=== PATIENT | female | born 1945 | race Caucasian/White ===

== ENCOUNTER → 2017-10-08 | Outpatient (CLI) | payer MEDICARE, MEDICAID ==
[~2017-10-08] MED LIST: ACET325T14 PO; ALBU18HF INH; ALPR0.25 PO; ALPR0.254 PO; ASPI-496 PO; BISA10SU54 PR; CARI250T PO; CARI350T PO; CLOB50FO8 TP; CLON2TAB PO; DILT60TA27 PO; DIVA250T4 PO; ENOX40SY4 SQ; HYDR-882 PO; MEGE40TA PO; MIRT30TA PO; MIRT30TA3 PO; MOME13HF INH; OMEP-110 PO; OMEP20CA9 PO; OMEP20TA62 PO; ONDA4TAB12 PO; OXYB5TAB7 PO; OXYC-306 PO; OXYC1TAB8 PO; SALM50DI IH; SIMV10TA3 PO; TRAM50TA2 PO; pro air IH; qvar IH
== END | disposition home or self-care (01) ==
LOC: CVU 13:39
PROVIDERS: ATTEND Internal Medicine Cardiovascular Disease
DX: I10 Essential (primary) hypertension (principal); I51.7 Cardiomegaly; J44.9 Chronic obstructive pulmonary disease, unspecified; K21.9 Gastro-esophageal reflux disease without esophagitis
CPT/HCPCS: 93306

== ENCOUNTER 2018-04-11 16:16 | Inpatient (IN) | payer MEDICARE, MEDICAID ==
[~2018-04-11] VITALS: Ht 162.6 cm; Wt 93.4 kg
[~2018-04-11 16:16] MED LIST changes: +HYDR-3653 PO; -HYDR-882 PO
--- NOTE | 2018-04-11 16:37 | NUR ---
EKG ATTEPTED IN TRIAGE, BUT WAS UNABLE TO GET A SUFFICIENT READING DUE TO PT'S TREMOR AND SITTING POSITION.
[2018-04-11 16:57] LABS: BASOPHILS # (AUTO) 0.05 x10^3/uL (0-0.1); BASOPHILS % (AUTO) 0 % (0-1); EOSINOPHILS # (AUTO) 0.05 x10^3/uL (0-0.4); EOSINOPHILS % (AUTO) 0 % (1-7); LYMPHOCYTES # (AUTO) 2.71 x10^3/uL (1-3.4); LYMPHOCYTES % (AUTO) 20 % (22-44); MD NO; MEAN CORPUSCULAR HEMOGLOBIN 30.6 pg (27.0-34.8); MEAN CORPUSCULAR VOLUME 92.7 fL (80-100); MEAN PLATELET VOLUME 8.5 fL (7.4-10.4); MONOCYTES % (AUTO) 7 % (2-9); NEUTROPHILS # (AUTO) 10.16 x10^3/uL (1.8-6.8); NEUTROPHILS % (AUTO) 73 % (42-75); PLATELET COUNT 201 x10^3/uL (130-400); RED CELL DISTRIBUTION WIDTH 14.9 % (9.6-15.2)
[2018-04-11 17:09] LABS: ALANINE AMINOTRANSFERASE 11 U/L (12-78); ALBUMIN 3.1 g/dL (3.4-5.0); ANION GAP 5 mmol/L (5-15); CALCIUM 9.8 mg/dL (8.5-10.1); CHLORIDE 98 mmol/L (98-107); CREATININE 0.74 mg/dL (0.55-1.02)
--- NOTE | 2018-04-11 17:12 | NUR ---
PT C/O INCREASING SOB. STATES SHE WAS TREATED FOR SINUSITIS WHICH IMPROVED BUT OVER PAST FEW DAY INCREASING SOB, RUNNY NOSE, CONGESTION. DR MEEK AT BEDSIDE, POC DISSCUSSED, ORDERS REC'D.
[2018-04-11 17:14] LABS: ALKALINE PHOSPHATASE 81 U/L (45-117); BILIRUBIN,TOTAL 0.3 mg/dL (0.2-1.0); TOTAL PROTEIN 8.3 g/dL (6.4-8.2); TROPONIN I < 0.015 ng/mL (0.000-0.045)
[2018-04-11] MEDS ORDERED: SODIUM CHLORIDE 0.9% 1,000ML IVBOLUS ONE (17:30)
[2018-04-11] MEDS ORDERED: SODIUM CHLORIDE FLUSH 10ML SYR IVF ONE (17:30)
[2018-04-11 18:12] LABS: TROPONIN I < 0.015 ng/mL (0.000-0.045)
--- NOTE | 2018-04-11 18:19 | NUR ---
ASSISTED PT TO BR WITH PLATFORM WALKER. RA SPO2 DROPPED 86% AFTER AMBULATION. O2 REAPPLIED AT 2L. TRAVELING PASSENGER AGENT TO TAKE PT FOR CTA.
[2018-04-11 18:21] LABS: RAPID INFLUENZA A Negative (Negative); RAPID INFLUENZA B Negative (Negative)
[2018-04-11] MEDS ORDERED: OMNIPAQUE 350 MG/ML, 75ML BOTTLE ONE (19:09)
--- NOTE | 2018-04-11 20:09 | NUR ---
DR MEEK AT BS. DISCUSSED RADIOLOGY RESULTS WITH PT & AND POSSIBILITY OF CHEST TUBE PLACEMENT.
[2018-04-11] MEDS ORDERED: DOXE50CA PO (20:23)
[2018-04-11] MEDS ORDERED: DIVA500T2 PO (20:23)
[2018-04-11] MEDS ORDERED: LIDOCAINE-MPF 1%, 5ML ONE (21:13)
[2018-04-11] MEDS ORDERED: FLUMAZENIL 0.1 MG/1 ML, 5ML ONE (21:15)
[2018-04-11] MEDS ORDERED: NALOXONE 1 MG/ML, 2ML ONE (21:15)
[2018-04-11] MEDS ORDERED: MIDAZOLAM 1 MG/ML, 5ML ONE (21:15)
[2018-04-11] MEDS ORDERED: FENTANYL PF 100 MCG/2ML ONE ×2 (21:15)
[2018-04-11 21:44] LABS: MICROSCOPIC NOT IND
[2018-04-11 21:47] LABS: CULTURE INDICATED? NO
[2018-04-11] MEDS: DILTIAZEM 90 MG TABLET PO SCH (22:00)
[2018-04-11] MEDS ORDERED: LIDODERM 5% PATCH TD PRN (22:00)
[2018-04-11] MEDS ORDERED: ONDANSETRON ODT 4 MG PO PRN (22:00)
[2018-04-11] MEDS ORDERED: ALBUTEROL SULFATE 2.5 MG/3 ML HHN PRN (22:00)
[2018-04-11] MEDS: SIMVASTATIN 10 MG TABLET PO SCH (22:00)
[2018-04-11] MEDS ORDERED: ACETAMINOPHEN 325 MG TABLET PO PRN (22:00)
[2018-04-11] MEDS: DOXEPIN 25 MG CAPSULE PO SCH (22:00)
[2018-04-11] MEDS: DIVALPROEX 500 MG TABLET.DR PO SCH (22:00)
[2018-04-11] MEDS ORDERED: hydrALAzine 20 MG/ML, 1ML IVPush PRN (22:00)
[2018-04-11 22:37] VITALS: BP 116/77
[2018-04-11] MEDS: OXYcodone/APAP 7.5/325MG TABLET PO PRN (23:46)
[2018-04-12 02:00] VITALS: BP 106/68
[2018-04-12] MEDS: DOCUSATE 100 MG CAPSULE PO PRN (02:06)
[2018-04-12] MEDS: OXYcodone/APAP 7.5/325MG TABLET PO PRN ×4 (06:31→14:46)
[2018-04-12] MEDS ORDERED: MULT1POW2 PO (07:13)
[2018-04-12] MEDS ORDERED: ASCO500C10 PO (07:14)
[2018-04-12 07:38] VITALS: BP 122/55
[2018-04-12] MEDS: DIVALPROEX 500 MG TABLET.DR PO SCH ×2 (09:21→20:32)
[2018-04-12] MEDS: ASPIRIN 81 MG TABLET CHEW PO SCH (09:22)
[2018-04-12] MEDS: OMEPRAZOLE 20 MG CAPSULE.DR PO SCH (09:22)
[2018-04-12] MEDS: DILTIAZEM 90 MG TABLET PO SCH ×2 (09:22→20:32)
[2018-04-12 12:57] VITALS: BP 123/70
[2018-04-12] MEDS: GUAIFENESIN 200 MG TABLET PO SCH ×2 (16:38→20:31)
[2018-04-12] MEDS ORDERED: BACL-19 PO (16:48)
[2018-04-12] MEDS ORDERED: FLUT9.9S NAS (16:48)
[2018-04-12] MEDS ORDERED: PROP10TA51 PO (16:48)
[2018-04-12] MEDS ORDERED: LORA5TAB4 PO (16:48)
[2018-04-12 19:38] VITALS: BP 126/58
[2018-04-12 20:31] VITALS: BP 121/74
[2018-04-12] MEDS: DOXEPIN 25 MG CAPSULE PO SCH (20:31)
[2018-04-12] MEDS: SIMVASTATIN 10 MG TABLET PO SCH (20:32)
[2018-04-13 00:49] VITALS: BP 123/62
[2018-04-13] MEDS: OXYcodone/APAP 7.5/325MG TABLET PO PRN ×4 (01:16→20:28)
[2018-04-13 07:49] VITALS: BP 116/73
[2018-04-13] MEDS: DIVALPROEX 500 MG TABLET.DR PO SCH ×2 (08:13→20:27)
[2018-04-13] MEDS: ASPIRIN 81 MG TABLET CHEW PO SCH (08:13)
[2018-04-13] MEDS: DOCUSATE 100 MG CAPSULE PO PRN (08:13)
[2018-04-13] MEDS: OMEPRAZOLE 20 MG CAPSULE.DR PO SCH (08:14)
[2018-04-13] MEDS: DILTIAZEM 90 MG TABLET PO SCH ×2 (08:14→20:27)
[2018-04-13] MEDS: GUAIFENESIN 200 MG TABLET PO SCH ×4 (08:17→20:28)
[2018-04-13 12:45] VITALS: BP 131/73
[2018-04-13 19:05] VITALS: BP 134/74
[2018-04-13] MEDS: DOXEPIN 25 MG CAPSULE PO SCH (20:28)
[2018-04-13] MEDS: SIMVASTATIN 10 MG TABLET PO SCH (20:28)
[2018-04-14 00:59] VITALS: BP 110/68
[2018-04-14] MEDS: GUAIFENESIN 200 MG TABLET PO SCH ×4 (04:45→19:53)
[2018-04-14] MEDS: OXYcodone/APAP 7.5/325MG TABLET PO PRN ×3 (04:45→19:53)
[2018-04-14 07:58] VITALS: BP 117/72
[2018-04-14] MEDS: DIVALPROEX 500 MG TABLET.DR PO SCH ×2 (08:52→19:54)
[2018-04-14] MEDS: ASPIRIN 81 MG TABLET CHEW PO SCH (08:52)
[2018-04-14] MEDS: DILTIAZEM 90 MG TABLET PO SCH ×2 (08:52→19:54)
[2018-04-14] MEDS: OMEPRAZOLE 20 MG CAPSULE.DR PO SCH (08:53)
[2018-04-14 15:55] VITALS: BP 124/76
[2018-04-14 19:52] VITALS: BP 122/80
[2018-04-14] MEDS: DOXEPIN 25 MG CAPSULE PO SCH (19:53)
[2018-04-14] MEDS: SIMVASTATIN 10 MG TABLET PO SCH (19:54)
[2018-04-15] MEDS: OXYcodone/APAP 7.5/325MG TABLET PO PRN ×2 (00:11→05:12)
[2018-04-15 00:55] VITALS: BP 104/66
[2018-04-15] MEDS: GUAIFENESIN 200 MG TABLET PO SCH (05:10)
[2018-04-15 06:36] VITALS: BP 121/71
[2018-04-15] MEDS: DILTIAZEM 90 MG TABLET PO SCH (09:11)
[2018-04-15] MEDS: DIVALPROEX 500 MG TABLET.DR PO SCH (09:12)
[2018-04-15] MEDS: ASPIRIN 81 MG TABLET CHEW PO SCH (09:12)
[2018-04-15] MEDS: OMEPRAZOLE 20 MG CAPSULE.DR PO SCH (09:12)
== END 2018-04-15 13:30 | disposition home or self-care (01) | DRG 199 ==
LOC: ED 17:54 → EDIP 20:40 → 4EST 22:14 → DCLOUNGE 04-15 12:10
PROVIDERS: ADMIT Internal Medicine; ATTEND Internal Medicine
PROC: 0W9B30Z Drainage of Left Pleural Cavity with Drainage Device, Percutaneous Approach (ICD-10-PCS; principal; 2018-04-11)
DX: J93.83 Other pneumothorax (principal); J96.21 Acute and chronic respiratory failure with hypoxia; J96.10 Chronic respiratory failure, unspecified whether with hypoxia or hypercapnia; J98.11 Atelectasis; E78.5 Hyperlipidemia, unspecified; F31.9 Bipolar disorder, unspecified; G89.4 Chronic pain syndrome; H35.30 Unspecified macular degeneration; I11.9 Hypertensive heart disease without heart failure; M54.9 Dorsalgia, unspecified; J44.9 Chronic obstructive pulmonary disease, unspecified; Z80.49 Family history of malignant neoplasm of other genital organs; Z82.5 Family history of asthma and other chronic lower respiratory diseases; Z87.891 Personal history of nicotine dependence; Z90.710 Acquired absence of both cervix and uterus; Z90.49 Acquired absence of other specified parts of digestive tract; Z88.5 Allergy status to narcotic agent; Z88.0 Allergy status to penicillin; Z88.2 Allergy status to sulfonamides; Z88.8 Allergy status to other drugs, medicaments and biological substances
CPT/HCPCS: 32557; 36415; 71045; 71260; 80053; 81003; 83605; 84145; 84484; 85025; 87040; 87400; 93005; 96360; 96361; G0378; J2250; J3010; Q0162; Q9967; J2310; J7030

== ENCOUNTER 2018-05-02 14:03 | Inpatient (IN) | payer MEDICARE, MEDICAID ==
[~2018-05-02] VITALS: Ht 162.6 cm; Wt 94.3 kg
[~2018-05-02 14:03] MED LIST changes: +ASCO500C10 PO; +BACL-19 PO; +DIVA500T2 PO; +DOXE50CA PO; +FLUT9.9S NAS; +LORA5TAB4 PO; +MULT1POW2 PO; +PROP10TA51 PO
[2018-05-02] MEDS ORDERED: SODIUM CHLORIDE FLUSH 10ML SYR IVF ONE ×2 (15:30→19:00)
[2018-05-02 15:44] LABS: MEAN CORPUSCULAR HEMOGLOBIN 29.7 pg (27.0-34.8); MEAN CORPUSCULAR HGB CONC 32.2 g/dL (32.4-35.8); MEAN CORPUSCULAR VOLUME 92.3 fL (80-100); MEAN PLATELET VOLUME 8.5 fL (7.4-10.4); PLATELET COUNT 177 x10^3/uL (130-400); RED CELL DISTRIBUTION WIDTH 15.1 % (9.6-15.2)
[2018-05-02 15:51] LABS: ALANINE AMINOTRANSFERASE 18 U/L (12-78); ALBUMIN 2.5 g/dL (3.4-5.0); ANION GAP 6 mmol/L (5-15); CALCIUM 9.5 mg/dL (8.5-10.1); CHLORIDE 98 mmol/L (98-107); CREATININE 0.81 mg/dL (0.55-1.02)
[2018-05-02 15:55] LABS: ALKALINE PHOSPHATASE 90 U/L (45-117); BILIRUBIN,TOTAL 0.3 mg/dL (0.2-1.0); TOTAL PROTEIN 7.4 g/dL (6.4-8.2); TROPONIN I < 0.015 ng/mL (0.000-0.045)
[2018-05-02 16:07] LABS: MD YES
[2018-05-02 16:10] LABS: <PLATELET ESTIMATE> ADEQUATE; <PLT MORPHOLOGY> NORMAL PLT MORPH; <RBC MORPHOLOGY> NORMAL; BAND#(MANUAL) 1.69 x10^3/uL; BANDS%(MANUAL) 12 % (0-7); LYMPH#(MANUAL) 2.54 x10^3/uL (1-3.4); LYMPHS% (MANUAL) 18 % (22-44); MONOS#(MANUAL) 0.99 x10^3/uL (0.3-2.7); MONOS% (MANUAL) 7 % (2-9); PMNS WITH VACUOLES 1+; SEG#(MANUAL) 8.88 x10^3/uL (1.8-6.8); SEGS% (MANUAL) 63 % (42-75)
--- NOTE | 2018-05-02 17:58 | NUR ---
UA RESENT TO LAB
--- NOTE | 2018-05-02 18:09 | NUR ---
LATE ENTRY -1410: BIB [facility], PT FOUND BY ROOMATE AFTER SHE COLLAPSED, PT C/O WEAKNESS. PT AOX4, LETHARGIC, TACHYCARDIC ON MONITOR. IV IN PLACE.
[2018-05-02 18:13] LABS: MICROSCOPIC NOT IND
[2018-05-02 18:16] LABS: CULTURE INDICATED? NO
--- NOTE | 2018-05-02 18:33 | NUR ---
LATE ENTRY 1620: MORE LABS ORDERED BY . LAB AT BEDSIDE 1755: PT UNABLE TO URINATE MORE SO EDUCATED PT ON NEED FOR STRIAGHT CATH, ABLE TO OBTAIN UA AND SENT TO LAB.
--- NOTE | 2018-05-02 18:39 | NUR ---
FIRST CONTACT WITH PATIENT. PT OFFERED TO REPOSITION HEAD. PT REFUSES ANY KIND OF PILLOW PLACED UNDER HER HEAD. REMOVED AND PT HEAD RESTING ON GURNEY. NO ACUTE DISTRESS NOTED. BEDSIDE.
[2018-05-02] MEDS ORDERED: AZTREONAM 1 GM in SODIUM CHLORIDE 0.9% 50 ML IV ONE (19:00)
[2018-05-02] MEDS ORDERED: AZTREONAM IV ONE (19:00)
[2018-05-02] MEDS ORDERED: DEXTROSE 5% IV ONE (19:00)
[2018-05-02] MEDS ORDERED: SODIUM CHLORIDE 0.9% 1,000ML IVBOLUS ONE (19:00)
[2018-05-02] MEDS ORDERED: OXYcodone/APAP 7.5/325MG TABLET PO PRN (20:00)
[2018-05-02] MEDS ORDERED: VANCOMYCIN PER PHARMACY MC PRN (20:00)
[2018-05-02] MEDS ORDERED: ACETAMINOPHEN 325 MG TABLET PO PRN (20:00)
[2018-05-02] MEDS ORDERED: ONDANSETRON 2MG/ML, 2ML IVPB PRN (20:00)
[2018-05-02] MEDS: ENOXAPARIN 40 MG/0.4 ML SQ SCH (20:00)
[2018-05-02] MEDS ORDERED: PHARMACY MAY ADJ FOR RENAL FX MC PRN (20:00)
--- NOTE | 2018-05-02 20:00 | NUR ---
IV WAS STARTED GIVEN IV ABX GIVEN REPORT TO CHLOE CHOW
[2018-05-02 20:08] LABS: INTERNATIONAL NORMALIZED RATIO 1.06 (0.93-1.1); PROTHROMBIN TIME 11.2 Seconds (9.6-11.5)
[2018-05-02 20:38] VITALS: BP 99/64
[2018-05-02] MEDS: BENZONATATE 100 MG CAPSULE PO SCH ×2 (21:00→22:00)
[2018-05-02] MEDS: DIVALPROEX 500 MG TABLET.DR PO SCH (21:00)
[2018-05-02] MEDS: PROPRANOLOL 10 MG TABLET PO SCH ×2 (21:00→22:00)
[2018-05-02] MEDS: ALBUTEROL SULFATE 2.5 MG/3 ML HHN SCH (21:00)
[2018-05-02] MEDS ORDERED: PHARMACOKINETIC MONITORING MC PRN (21:00)
[2018-05-02] MEDS: DILTIAZEM 90 MG TABLET PO SCH ×2 (21:00→22:00)
[2018-05-02] MEDS ORDERED: PHARMACOKINETIC CONSULTATION MC ONE (21:00)
[2018-05-02] MEDS: SIMVASTATIN 10 MG TABLET PO SCH ×2 (21:00→22:00)
[2018-05-02] MEDS ORDERED: ACETAMINOPHEN 650 MG SUPP PR PRN (22:00)
[2018-05-02] MEDS: SODIUM CHLORIDE 0.9% 1,000 ML IV SCH (22:08)
[2018-05-02] MEDS: LEVOFLOXACIN/PMX 750MG/150ML 150 ML IVPB SCH (22:08)
[2018-05-03 00:28] VITALS: BP 101/62
[2018-05-03] MEDS: VANCOMYCIN 1,700 MG in SODIUM CHLORIDE 0.9% 250 ML IV SCH (00:43)
[2018-05-03] MEDS: ALBUTEROL SULFATE 2.5 MG/3 ML HHN SCH ×4 (03:20→20:30)
[2018-05-03] MEDS: AZTREONAM 1 GM in DEXTROSE 5% 50 ML IVPB SCH ×3 (03:43→21:18)
[2018-05-03] MEDS: OXYcodone/APAP 5/325MG TABLET PO PRN ×2 (04:49→21:43)
[2018-05-03] MEDS: OMEPRAZOLE 20 MG CAPSULE.DR PO SCH (04:49)
[2018-05-03] MEDS: SODIUM CHLORIDE 0.9% 1,000 ML IV SCH ×2 (04:50→09:45)
[2018-05-03 05:54] LABS: MEAN CORPUSCULAR HEMOGLOBIN 30.4 pg (27.0-34.8); MEAN CORPUSCULAR HGB CONC 33.5 g/dL (32.4-35.8); MEAN CORPUSCULAR VOLUME 90.9 fL (80-100); PLATELET COUNT 147 x10^3/uL (130-400); RED CELL DISTRIBUTION WIDTH 14.7 % (9.6-15.2)
[2018-05-03 05:58] LABS: ANION GAP 8 mmol/L (5-15); CALCIUM 8.5 mg/dL (8.5-10.1); CHLORIDE 103 mmol/L (98-107); CREATININE 0.69 mg/dL (0.55-1.02)
[2018-05-03 06:15] LABS: MD YES
[2018-05-03 06:18] LABS: BAND#(MANUAL) 1.52 x10^3/uL; BANDS%(MANUAL) 11 % (0-7); LYMPH#(MANUAL) 2.07 x10^3/uL (1-3.4); LYMPHS% (MANUAL) 15 % (22-44); MONOS#(MANUAL) 1.38 x10^3/uL (0.3-2.7); MONOS% (MANUAL) 10 % (2-9); SEG#(MANUAL) 8.83 x10^3/uL (1.8-6.8); SEGS% (MANUAL) 64 % (42-75)
[2018-05-03 06:19] LABS: <PLATELET ESTIMATE> ADEQUATE; <PLT MORPHOLOGY> NORMAL PLT MORPH; <RBC MORPHOLOGY> NORMAL
[2018-05-03 07:32] VITALS: BP 99/65
[2018-05-03] MEDS: MULTIVITAMIN 1 TABLET PO SCH (09:44)
[2018-05-03] MEDS: ASPIRIN 81 MG TABLET EC PO SCH (09:44)
[2018-05-03] MEDS: ASCORBIC ACID 500 MG TABLET PO SCH (09:44)
[2018-05-03 13:09] VITALS: BP 116/74
[2018-05-03] MEDS ORDERED: CLOBETASOL PROPIONATE HOMETD PRN (16:00)
[2018-05-03] MEDS ORDERED: EMOLL HOMETD PRN (16:00)
[2018-05-03] MEDS: BENZONATATE 100 MG CAPSULE PO SCH ×2 (18:13→21:18)
[2018-05-03 18:37] VITALS: BP 115/72
[2018-05-03] MEDS: BACLOFEN 10 MG TABLET PO SCH (21:18)
[2018-05-03] MEDS: DIVALPROEX 500 MG TABLET.DR PO SCH (21:18)
[2018-05-03] MEDS: DILTIAZEM 90 MG TABLET PO SCH (21:18)
[2018-05-03] MEDS: LEVOFLOXACIN/PMX 750MG/150ML 150 ML IVPB SCH (22:25)
[2018-05-04] MEDS: ENOXAPARIN 40 MG/0.4 ML SQ SCH
[2018-05-04 01:33] VITALS: BP 152/81
[2018-05-04] MEDS: SODIUM CHLORIDE 0.9% 1,000 ML IV SCH ×2 (01:54→15:12)
[2018-05-04 02:54] VITALS: BP 111/70
[2018-05-04] MEDS: ALBUTEROL SULFATE 2.5 MG/3 ML HHN SCH ×4 (03:00→21:14)
[2018-05-04] MEDS: OXYcodone/APAP 5/325MG TABLET PO PRN ×3 (04:05→20:31)
[2018-05-04] MEDS: AZTREONAM 1 GM in DEXTROSE 5% 50 ML IVPB SCH ×3 (04:58→20:18)
[2018-05-04] MEDS: OMEPRAZOLE 20 MG CAPSULE.DR PO SCH (05:44)
[2018-05-04 06:57] LABS: MEAN CORPUSCULAR HEMOGLOBIN 30.3 pg (27.0-34.8); MEAN CORPUSCULAR HGB CONC 33.2 g/dL (32.4-35.8); MEAN CORPUSCULAR VOLUME 91.3 fL (80-100); MEAN PLATELET VOLUME 8.3 fL (7.4-10.4); PLATELET COUNT 149 x10^3/uL (130-400); RED BLOOD COUNT 3.48 x10^6/uL (3.82-5.3)
[2018-05-04 07:02] LABS: ANION GAP 6 mmol/L (5-15); CALCIUM 8.5 mg/dL (8.5-10.1); CHLORIDE 107 mmol/L (98-107); CREATININE 0.48 mg/dL (0.55-1.02)
[2018-05-04 07:28] LABS: MD YES
[2018-05-04 07:38] LABS: <PLATELET ESTIMATE> ADEQUATE; <PLT MORPHOLOGY> NORMAL PLT MORPH; <RBC MORPHOLOGY> NORMAL; BAND#(MANUAL) 0.42 x10^3/uL; BANDS%(MANUAL) 5 % (0-7); EOS#(MANUAL) 0.08 x10^3/uL (0.0-0.4); EOS% (MANUAL) 1 % (1-7); LYMPH#(MANUAL) 1.16 x10^3/uL (1-3.4); LYMPHS% (MANUAL) 14 % (22-44); MONOS% (MANUAL) 6 % (2-9); SEG#(MANUAL) 6.14 x10^3/uL (1.8-6.8); SEGS% (MANUAL) 74 % (42-75)
[2018-05-04 07:51] VITALS: BP 97/59
[2018-05-04] MEDS: MULTIVITAMIN 1 TABLET PO SCH (09:00)
[2018-05-04] MEDS: ASCORBIC ACID 500 MG TABLET PO SCH (09:00)
[2018-05-04] MEDS: ASPIRIN 81 MG TABLET EC PO SCH (09:00)
[2018-05-04] MEDS: BENZONATATE 100 MG CAPSULE PO SCH ×3 (09:00→20:19)
[2018-05-04] MEDS: DILTIAZEM 90 MG TABLET PO SCH ×2 (09:00→20:19)
[2018-05-04] MEDS: BACLOFEN 10 MG TABLET PO SCH ×2 (09:00→20:18)
[2018-05-04] MEDS: VANCOMYCIN 1,700 MG in SODIUM CHLORIDE 0.9% 250 ML IV SCH (09:00)
[2018-05-04] MEDS: DIVALPROEX 500 MG TABLET.DR PO SCH ×2 (09:00→20:19)
[2018-05-04] MEDS: LORATADINE 10 MG TABLET PO SCH (09:00)
[2018-05-04] MEDS: FLUTICASONE NASAL SPRAY 16GM NAS SCH (09:52)
[2018-05-04 12:35] VITALS: BP 122/75
[2018-05-04] MEDS: SIMVASTATIN 10 MG TABLET PO SCH (20:19)
[2018-05-04] MEDS: PROPRANOLOL 10 MG TABLET PO SCH (20:19)
[2018-05-04 20:21] VITALS: BP 128/54
[2018-05-04] MEDS: LEVOFLOXACIN/PMX 750MG/150ML 150 ML IVPB SCH (22:38)
[2018-05-05] MEDS: ENOXAPARIN 40 MG/0.4 ML SQ SCH (01:43)
[2018-05-05] MEDS: ALBUTEROL SULFATE 2.5 MG/3 ML HHN SCH ×4 (03:00→21:00)
[2018-05-05 03:39] VITALS: BP 112/70
[2018-05-05] MEDS: SODIUM CHLORIDE 0.9% 1,000 ML IV SCH ×2 (03:44→15:00)
[2018-05-05] MEDS: OXYcodone/APAP 5/325MG TABLET PO PRN ×2 (03:44→21:26)
[2018-05-05] MEDS: AZTREONAM 1 GM in DEXTROSE 5% 50 ML IVPB SCH ×3 (03:57→20:42)
[2018-05-05 05:34] LABS: BASOPHILS # (AUTO) 0.01 x10^3/uL (0-0.1); BASOPHILS % (AUTO) 0 % (0-1); EOSINOPHILS % (AUTO) 3 % (1-7); LYMPHOCYTES # (AUTO) 1.68 x10^3/uL (1-3.4); LYMPHOCYTES % (AUTO) 24 % (22-44); MD NO; MEAN CORPUSCULAR HEMOGLOBIN 29.5 pg (27.0-34.8); MEAN CORPUSCULAR HGB CONC 32.1 g/dL (32.4-35.8); MEAN CORPUSCULAR VOLUME 91.8 fL (80-100); MEAN PLATELET VOLUME 8.1 fL (7.4-10.4); MONOCYTES # (AUTO) 0.84 x10^3/uL (0.2-0.8); MONOCYTES % (AUTO) 12 % (2-9); NEUTROPHILS % (AUTO) 62 % (42-75); PLATELET COUNT 151 x10^3/uL (130-400); RED CELL DISTRIBUTION WIDTH 15.1 % (9.6-15.2)
[2018-05-05] MEDS: OMEPRAZOLE 20 MG CAPSULE.DR PO SCH (05:54)
[2018-05-05 07:42] VITALS: BP 107/65
[2018-05-05] MEDS: ASCORBIC ACID 500 MG TABLET PO SCH (08:38)
[2018-05-05] MEDS: DILTIAZEM 90 MG TABLET PO SCH ×2 (08:38→20:44)
[2018-05-05] MEDS: BACLOFEN 10 MG TABLET PO SCH ×2 (08:39→20:44)
[2018-05-05] MEDS: LORATADINE 10 MG TABLET PO SCH (08:39)
[2018-05-05] MEDS: MULTIVITAMIN 1 TABLET PO SCH (08:39)
[2018-05-05] MEDS: DIVALPROEX 500 MG TABLET.DR PO SCH ×2 (08:39→20:44)
[2018-05-05] MEDS: BENZONATATE 100 MG CAPSULE PO SCH ×3 (08:39→20:44)
[2018-05-05] MEDS: ASPIRIN 81 MG TABLET EC PO SCH (08:39)
[2018-05-05] MEDS: FLUTICASONE NASAL SPRAY 16GM NAS SCH (08:40)
[2018-05-05 12:36] VITALS: BP 113/71
[2018-05-05] MEDS ORDERED: LIDODERM 5% PATCH TD SCH (18:00)
[2018-05-05 19:43] VITALS: BP 119/66
[2018-05-05] MEDS: PROPRANOLOL 10 MG TABLET PO SCH (20:44)
[2018-05-05] MEDS: SIMVASTATIN 10 MG TABLET PO SCH (20:44)
[2018-05-05] MEDS: VANCOMYCIN 1,700 MG in SODIUM CHLORIDE 0.9% 250 ML IV SCH (21:30)
[2018-05-05] MEDS: LEVOFLOXACIN/PMX 750MG/150ML 150 ML IVPB SCH (23:35)
[2018-05-06] MEDS: ENOXAPARIN 40 MG/0.4 ML SQ SCH (01:33)
[2018-05-06 01:57] VITALS: BP 107/66
[2018-05-06] MEDS: ALBUTEROL SULFATE 2.5 MG/3 ML HHN SCH ×2 (03:00→13:30)
[2018-05-06] MEDS: SODIUM CHLORIDE 0.9% 1,000 ML IV SCH (03:55)
[2018-05-06] MEDS: AZTREONAM 1 GM in DEXTROSE 5% 50 ML IVPB SCH (04:00)
[2018-05-06] MEDS: OXYcodone/APAP 5/325MG TABLET PO PRN ×2 (04:00→10:27)
[2018-05-06] MEDS: OMEPRAZOLE 20 MG CAPSULE.DR PO SCH (05:06)
[2018-05-06] MEDS ORDERED: LIDO700A20 TD (07:59)
[2018-05-06] MEDS ORDERED: LEVO750T26 PO (07:59)
[2018-05-06] MEDS ORDERED: BENZ-17 PO (07:59)
[2018-05-06] MEDS ORDERED: LEVOFLOXACIN 750 MG TABLET PO SCH (08:00)
[2018-05-06 08:02] VITALS: BP 112/69
[2018-05-06] MEDS: LORATADINE 10 MG TABLET PO SCH (08:23)
[2018-05-06] MEDS: MULTIVITAMIN 1 TABLET PO SCH (08:23)
[2018-05-06] MEDS: DILTIAZEM 90 MG TABLET PO SCH (08:23)
[2018-05-06] MEDS: DIVALPROEX 500 MG TABLET.DR PO SCH (08:23)
[2018-05-06] MEDS: FLUTICASONE NASAL SPRAY 16GM NAS SCH (08:23)
[2018-05-06] MEDS: ASCORBIC ACID 500 MG TABLET PO SCH (08:23)
[2018-05-06] MEDS: BACLOFEN 10 MG TABLET PO SCH (08:23)
[2018-05-06] MEDS: BENZONATATE 100 MG CAPSULE PO SCH (08:23)
[2018-05-06] MEDS: ASPIRIN 81 MG TABLET EC PO SCH (08:23)
[2018-05-06] MEDS ORDERED: LIDODERM 5% PATCH TD SCH (12:30)
[2018-05-06 14:25] VITALS: BP 116/72
== END 2018-05-06 17:49 | disposition home health service (06) | DRG 871 ==
LOC: ED 18:44 → SUATTDRO 19:19 → EDIP 19:30 → 4EST 20:29 → UNDODISIN 05-06 15:15
PROVIDERS: ADMIT Hospitalist; ATTEND Hospitalist
PROC: 0T9B70Z Drainage of Bladder with Drainage Device, Via Natural or Artificial Opening (ICD-10-PCS; principal; 2018-05-02)
DX: A41.9 Sepsis, unspecified organism (principal); J18.9 Pneumonia, unspecified organism; J96.21 Acute and chronic respiratory failure with hypoxia; J44.0 Chronic obstructive pulmonary disease with (acute) lower respiratory infection; F32.9 Major depressive disorder, single episode, unspecified; M54.9 Dorsalgia, unspecified; R25.1 Tremor, unspecified; Y95 Nosocomial condition; I10 Essential (primary) hypertension; I89.0 Lymphedema, not elsewhere classified; E78.5 Hyperlipidemia, unspecified; F31.9 Bipolar disorder, unspecified; G89.4 Chronic pain syndrome; Z88.1 Allergy status to other antibiotic agents; Z88.5 Allergy status to narcotic agent; Z88.0 Allergy status to penicillin; Z88.2 Allergy status to sulfonamides; Z88.8 Allergy status to other drugs, medicaments and biological substances
CPT/HCPCS: 36415; 36600; 70450; 71045; 80048; 80053; 81003; 82803; 83605; 84145; 84484; 85025; 85610; 85730; 87040; 87081; 93005; 94640; 96374; G0378; J1650; J1956; J3370; J7613; J7030; J7050

== ENCOUNTER 2018-05-07 16:23 | Inpatient (IN) | payer MEDICARE, MEDICAID ==
[~2018-05-07] VITALS: Ht 162.6 cm; Wt 89.5 kg
[~2018-05-07 16:23] MED LIST changes: +BENZ-17 PO; +LEVO750T26 PO; +LIDO700A20 TD
--- NOTE | 2018-05-07 16:29 | NUR ---
PT CIRA, REPORT TAKEN FROM EMS. PT WAS DC'D FROM THIS HOSPITAL YESTERDAY FOR PNA AND RIGHT ANKLE INJURY. PT STATES "MY BOYFRIEND CANT CARE FOR ME, I HAVE TO BE READMITTED SO I CAN GO TO A REHABILITATION FACILITY." PT C/O INABILITY TO SAFELY MOBILIZE AT HOME. PT WEARS 3L OXYGEN VIA NC AT BASELINE FOR HX COPD, SPO2 90% ON 3L NC ON ARRIVAL, OXYGEN INCREASED TO 4L/MIN VIA NC. BP AND SPO2 MONITORS IN PLACE. CALL LIGHT IN REACH, AWAITING MD AND DISPO.
--- NOTE | 2018-05-07 16:57 | NUR ---
Antwan jain in ED - 05/07/18 at 1716 by MARYA NO CODE NEURO INDICATED PER DULCE MARIA DAVIS.
--- NOTE | 2018-05-07 16:58 | NUR ---
Note undone in EDM - 05/07/18 at 1716 by MARYA PT PRESENTS TO ED WITH C/O RT MOUTH DROOP ONSET 1200 THIS PM. PT STATES SHE HAD SIMILAR EPISODE LAST MONTH TO LEFT SIDE OF FACE WHICH WAS TRANSIENT AND RESOLVED SPONTANEOUSLY. PT IS A&OX4, NEURO INTACT. ALL MONTIORS IN PLACE. CALL LIGHT IN REACH. LAB AT BEDSIDE. AWAITING LABS AND CT AT THIS TIME.
--- NOTE | 2018-05-07 17:17 | NUR ---
notes undone: charted on the wrong patient
--- NOTE | 2018-05-07 17:34 | NUR ---
PT RESTING ON GURELIZABETH, RESPS EVEN AND UNLABORED. NO COMPLAINT AT THIS TIME. AWAITING MD AND ORDERS.
--- NOTE | 2018-05-07 17:37 | NUR ---
report to break CHLOE freeman
--- NOTE | 2018-05-07 17:38 | NUR ---
BREAK RN: Dr. Schmid at bedside to evaluate pt.
--- NOTE | 2018-05-07 18:11 | NUR ---
XR at bedside. EDTA at bedside for IV start and lab draw.
--- NOTE | 2018-05-07 18:21 | NUR ---
report received from ari Zamarripa.
[2018-05-07 18:46] LABS: HCT (SEDRATE) 33.7 % (34.6-47.8)
[2018-05-07 18:48] LABS: ALANINE AMINOTRANSFERASE 22 U/L (12-78); ALBUMIN 1.9 g/dL (3.4-5.0); ANION GAP 7 mmol/L (5-15); CALCIUM 9.2 mg/dL (8.5-10.1); CHLORIDE 104 mmol/L (98-107); CREATININE 0.54 mg/dL (0.55-1.02)
[2018-05-07 18:51] LABS: ALKALINE PHOSPHATASE 101 U/L (45-117); BILIRUBIN,TOTAL 0.3 mg/dL (0.2-1.0); TOTAL PROTEIN 6.7 g/dL (6.4-8.2)
[2018-05-07 18:54] LABS: BASOPHILS # (AUTO) 0.03 x10^3/uL (0-0.1); BASOPHILS % (AUTO) 1 % (0-1); EOSINOPHILS # (AUTO) 0.18 x10^3/uL (0-0.4); EOSINOPHILS % (AUTO) 3 % (1-7); LYMPHOCYTES # (AUTO) 2.14 x10^3/uL (1-3.4); LYMPHOCYTES % (AUTO) 31 % (22-44); MD NO; MEAN CORPUSCULAR HGB CONC 32.9 g/dL (32.4-35.8); MEAN CORPUSCULAR VOLUME 91.1 fL (80-100); MEAN PLATELET VOLUME 7.6 fL (7.4-10.4); MONOCYTES # (AUTO) 1.08 x10^3/uL (0.2-0.8); MONOCYTES % (AUTO) 15 % (2-9); NEUTROPHILS # (AUTO) 3.58 x10^3/uL (1.8-6.8); NEUTROPHILS % (AUTO) 51 % (42-75); PLATELET COUNT 220 x10^3/uL (130-400); RED BLOOD COUNT 3.71 x10^6/uL (3.82-5.3); RED CELL DISTRIBUTION WIDTH 15.1 % (9.6-15.2)
[2018-05-07 19:12] LABS: MICROSCOPIC INDICATED
--- NOTE | 2018-05-07 19:20 | NUR ---
PT TO US
[2018-05-07 19:22] LABS: CULTURE INDICATED? NO
--- NOTE | 2018-05-07 19:38 | NUR ---
PT BACK FROM US; NADN AT THIS TIME.
--- NOTE | 2018-05-07 19:58 | NUR ---
HOSPITALIST DARIAN DO AT BEDSIDE TO ADMIT PT. PT A&O, RESPS EVEN AND UNLABORED. PT CONVERSING WITH HOSPITALIST AT THIS TIME.
[2018-05-07] MEDS ORDERED: SODIUM CHLORIDE 0.9% 1,000 ML IV SCH (20:14)
--- NOTE | 2018-05-07 20:25 | NUR ---
report given to CHLOE Rogers, pt awaiting spint placement and transport to room 333.
[2018-05-07] MEDS ORDERED: POTASSIUM CHLORIDE 20 MEQ TAB.ER.PRT PO ONE (20:30)
[2018-05-07] MEDS ORDERED: ACETAMINOPHEN 325 MG TABLET PO PRN (20:30)
[2018-05-07] MEDS ORDERED: ONDANSETRON ODT 4 MG PO PRN (20:30)
[2018-05-07] MEDS ORDERED: GUAIFENESIN/DM 200-20MG, 10ML UDC PO PRN (20:30)
[2018-05-07] MEDS ORDERED: POLYETHYLENE GLYCOL 17 GM PACKET PO PRN (20:30)
[2018-05-07] MEDS ORDERED: [UNRECOGNIZED DRUG - OTHER] TP PRN (20:30)
[2018-05-07] MEDS ORDERED: ONDANSETRON 2MG/ML, 2ML IVPush PRN (20:30)
--- NOTE | 2018-05-07 20:39 | NUR ---
splint placed by EDT to right foot/ankle. pt transported to room 333 by edt, boyfriend with pt at transport. nadn at transport.
[2018-05-07] MEDS ORDERED: ALBUTEROL SULFATE 2.5 MG/3 ML NPPB PRN (21:00)
[2018-05-07 21:02] VITALS: BP 114/74
[2018-05-07] MEDS ORDERED: ALBUTEROL/IPRATROPIUM 2.5MG/0.5MG, 3 ML NPPB PRN (22:30)
[2018-05-07] MEDS: ENOXAPARIN 40 MG/0.4 ML SQ SCH (22:30)
[2018-05-07] MEDS: BACLOFEN 10 MG TABLET PO SCH (22:31)
[2018-05-07] MEDS: SIMVASTATIN 10 MG TABLET PO SCH (22:31)
[2018-05-07] MEDS: OXYcodone/APAP 7.5/325MG TABLET PO PRN (22:31)
[2018-05-07] MEDS: PROPRANOLOL 20 MG TABLET PO SCH (22:32)
[2018-05-07] MEDS: DIVALPROEX 500 MG TABLET.DR PO SCH (22:33)
[2018-05-07] MEDS: DILTIAZEM 90 MG TABLET PO SCH (22:33)
[2018-05-07] MEDS: LEVOFLOXACIN 750 MG TABLET PO SCH (22:33)
[2018-05-07] MEDS: BENZONATATE 100 MG CAPSULE PO SCH (22:34)
[2018-05-08 00:06] VITALS: BP 107/65
[2018-05-08 06:08] VITALS: BP 119/68
[2018-05-08] MEDS: OXYcodone/APAP 7.5/325MG TABLET PO PRN ×3 (06:19→18:43)
[2018-05-08] MEDS: ALBUTEROL/IPRATROPIUM 2.5MG/0.5MG, 3 ML NPPB SCH ×4 (06:35→20:00)
[2018-05-08] MEDS: OMEPRAZOLE 20 MG CAPSULE.DR PO SCH (08:01)
[2018-05-08] MEDS: MULTIVITAMIN 1 TABLET PO SCH (08:01)
[2018-05-08] MEDS: ASPIRIN 81 MG TABLET EC PO SCH (08:02)
[2018-05-08] MEDS: ASCORBIC ACID 500 MG TABLET PO SCH (08:02)
[2018-05-08] MEDS: DILTIAZEM 90 MG TABLET PO SCH (08:02)
[2018-05-08] MEDS: BENZONATATE 100 MG CAPSULE PO SCH ×3 (08:02→20:35)
[2018-05-08] MEDS: DIVALPROEX 500 MG TABLET.DR PO SCH ×2 (08:02→20:32)
[2018-05-08] MEDS: BACLOFEN 10 MG TABLET PO SCH ×2 (08:02→20:33)
[2018-05-08] MEDS: FLUTICASONE NASAL SPRAY 16GM NAS SCH (09:35)
[2018-05-08 14:30] VITALS: BP 113/72
[2018-05-08 19:21] VITALS: BP 109/68
[2018-05-08] MEDS ORDERED: DILTIAZEM 30 MG TABLET ONE (20:17)
[2018-05-08] MEDS: DILTIAZEM 30 MG TABLET PO SCH (20:33)
[2018-05-08] MEDS: SIMVASTATIN 10 MG TABLET PO SCH (20:33)
[2018-05-08] MEDS: PROPRANOLOL 20 MG TABLET PO SCH (20:34)
[2018-05-08] MEDS: ENOXAPARIN 40 MG/0.4 ML SQ SCH (20:48)
[2018-05-08] MEDS: LEVOFLOXACIN 750 MG TABLET PO SCH (20:48)
[2018-05-09] MEDS: OXYcodone/APAP 7.5/325MG TABLET PO PRN ×4 (01:23→16:42)
[2018-05-09 01:25] VITALS: BP 115/68
[2018-05-09 06:31] VITALS: BP 111/46
[2018-05-09] MEDS: ALBUTEROL/IPRATROPIUM 2.5MG/0.5MG, 3 ML NPPB SCH ×3 (07:20→14:45)
[2018-05-09] MEDS: DILTIAZEM 30 MG TABLET PO SCH (08:39)
[2018-05-09] MEDS: ASPIRIN 81 MG TABLET EC PO SCH (08:39)
[2018-05-09] MEDS: DIVALPROEX 500 MG TABLET.DR PO SCH (08:39)
[2018-05-09] MEDS: BENZONATATE 100 MG CAPSULE PO SCH ×2 (08:39→16:42)
[2018-05-09] MEDS: BACLOFEN 10 MG TABLET PO SCH (08:39)
[2018-05-09] MEDS: MULTIVITAMIN 1 TABLET PO SCH (08:39)
[2018-05-09] MEDS: ASCORBIC ACID 500 MG TABLET PO SCH (08:40)
[2018-05-09] MEDS: OMEPRAZOLE 20 MG CAPSULE.DR PO SCH (08:40)
[2018-05-09] MEDS: FLUTICASONE NASAL SPRAY 16GM NAS SCH (08:41)
[2018-05-09 14:15] VITALS: BP 120/65
== END 2018-05-09 17:15 | DRG 189 ==
LOC: ED 16:25 → EDIP 19:52 → 3NW 20:43
PROVIDERS: ADMIT Hospitalist; ATTEND Hospitalist
DX: J96.20 Acute and chronic respiratory failure, unspecified whether with hypoxia or hypercapnia (principal); J15.9 Unspecified bacterial pneumonia; J44.0 Chronic obstructive pulmonary disease with (acute) lower respiratory infection; J90 Pleural effusion, not elsewhere classified; J98.11 Atelectasis; S82.51XA Displaced fracture of medial malleolus of right tibia, initial encounter for closed fracture; E78.5 Hyperlipidemia, unspecified; F31.9 Bipolar disorder, unspecified; G89.4 Chronic pain syndrome; I10 Essential (primary) hypertension; I89.0 Lymphedema, not elsewhere classified; R25.1 Tremor, unspecified; M85.80 Other specified disorders of bone density and structure, unspecified site; Z88.0 Allergy status to penicillin; Z87.891 Personal history of nicotine dependence; Z90.710 Acquired absence of both cervix and uterus; Z90.49 Acquired absence of other specified parts of digestive tract; Z88.2 Allergy status to sulfonamides; Z88.5 Allergy status to narcotic agent; W18.30XA Fall on same level, unspecified, initial encounter; Y93.89 Activity, other specified; Y92.89 Other specified places as the place of occurrence of the external cause; Y99.8 Other external cause status
CPT/HCPCS: 36415; 71045; 80053; 81001; 85025; 85651; 94640; 99285; G0378; J1650; J7620; J7030

== ENCOUNTER 2018-07-22 16:14 | Emergency (ER) | payer MEDICARE, MEDICAID ==
[~2018-07-22] VITALS: Ht 162.6 cm; Wt 90.0 kg
[2018-07-22] MEDS ORDERED: ASPIRIN 81 MG TABLET CHEW PO ONE (16:30)
[2018-07-22 16:54] LABS: BASOPHILS # (AUTO) 0.03 x10^3/uL (0-0.1); BASOPHILS % (AUTO) 1 % (0-1); EOSINOPHILS # (AUTO) 0.12 x10^3/uL (0-0.4); EOSINOPHILS % (AUTO) 2 % (1-7); LYMPHOCYTES # (AUTO) 3.09 x10^3/uL (1-3.4); LYMPHOCYTES % (AUTO) 49 % (22-44); MD NO; MEAN CORPUSCULAR HEMOGLOBIN 29.2 pg (27.0-34.8); MEAN CORPUSCULAR HGB CONC 32.5 g/dL (32.4-35.8); MONOCYTES # (AUTO) 0.45 x10^3/uL (0.2-0.8); MONOCYTES % (AUTO) 7 % (2-9); NEUTROPHILS # (AUTO) 2.58 x10^3/uL (1.8-6.8); NEUTROPHILS % (AUTO) 41 % (42-75); PLATELET COUNT 211 x10^3/uL (130-400); RED BLOOD COUNT 4.57 x10^6/uL (3.82-5.3); RED CELL DISTRIBUTION WIDTH 16.3 % (9.6-15.2)
[2018-07-22 17:06] LABS: ANION GAP 3 mmol/L (5-15); CALCIUM 9.1 mg/dL (8.5-10.1); CHLORIDE 104 mmol/L (98-107); CREATININE 0.73 mg/dL (0.55-1.02)
[2018-07-22 17:10] LABS: TROPONIN I < 0.015 ng/mL (0.000-0.045)
--- NOTE | 2018-07-22 18:34 | NUR ---
TO ROOM FROM LOBBY. NAD.
[2018-07-22 19:07] VITALS: BP 122/89
--- NOTE | 2018-07-22 19:11 | NUR ---
pt presents to ED with generalized weakness starting yesteday, was told she was bradycardic and hypotensive today at pt. pt a&ox4, neuro intact. all monitors in place, pt is nsr on cardiac exercise specialist, rate 60s. edmd delores at bedside to evaluate. pt educated to provide clean catch ua when able.
--- NOTE | 2018-07-22 19:45 | NUR ---
states pt's home o2 is in the car.
--- NOTE | 2018-07-22 19:45 | NUR ---
REPORT GIVEN TO PITA BRISENO.
--- NOTE | 2018-07-22 20:28 | NUR ---
pt refused to provide ua, refusing to stay for further workup. EDMD Alexis notified. pt given dc instructions. pt ambulatory at baseline, uses walker at home. pt provided with wc to dc desk, wearing oxygen at 2l/min which is her baseline. per , pt's portable oxygen is in car. pt a&o, resps even and unlabored, nadn at dc.
== END 2018-07-22 20:36 | disposition home or self-care (01) ==
LOC: ED 20:13
DX: B37.3 Candidiasis of vulva and vagina (principal); B37.2 Candidiasis of skin and nail; R53.1 Weakness; J44.9 Chronic obstructive pulmonary disease, unspecified; I10 Essential (primary) hypertension; F31.9 Bipolar disorder, unspecified; Z90.49 Acquired absence of other specified parts of digestive tract; Z90.710 Acquired absence of both cervix and uterus
CPT/HCPCS: 36415; 71046; 80048; 82040; 84484; 85025; 93005; 99284

== ENCOUNTER 2019-01-28 21:30 | Inpatient (IN) | payer MEDICARE, MEDICAID ==
[~2019-01-28] VITALS: Ht 162.6 cm; Wt 86.3 kg
[~2019-01-28 21:30] MED LIST changes: +OXYB5TAB10 PO; -OXYB5TAB7 PO
--- NOTE | 2019-01-28 21:45 | NUR ---
PT PRESENTS TO ED WITH FAMILY WHO REPORTS MULTIPLE CO INCREASED WEAKNESS, "UNABLE TO WALK", PAIN/SWELLING TO R FOOT, "FOR A WHILE NOW SHE JUST LEANS TO THE LEFT", "SOMETHING HAS TO BE WRONG". SUBJECTIVE FEVER TWO DAYS AGO, NONE TODAY. FAMILY REPORT THAT PT WAS SEEN RECENTLY BY PCP AND PUT ON ABX FOR POSSIBLE LUNG INFECTION. PT/FAMILY ARE POOR HISTORIANS AND ARE UNABLE TO VERBALIZE ONSET OF MANY OF THE PT'S SYMPTOMS. PT APPEARS W/ GENERALIZED WEAKNESS; PWD. A&OX4. RESPIRATIONS EVEN/UNLABORED; SPO2 >90% ON BASELINE 2L O2 BY NC. RLE W +2 PEDAL EDEMA AND TENDER TO PALPATION. PT DENIES CP/NAUSEA/WEAKNESS. BP/SPO2/ECG MONITORING IN PLACE. NSR ON MONITOR. IV ESTABLISHED AND LABS DRAWN.
[2019-01-28] MEDS ORDERED: SODIUM CHLORIDE FLUSH 10ML SYR IVF ONE (22:00)
[2019-01-28 22:17] LABS: BASOPHILS # (AUTO) 0.02 x10^3/uL (0-0.1); BASOPHILS % (AUTO) 0 % (0-1); EOSINOPHILS # (AUTO) 0.26 x10^3/uL (0-0.4); EOSINOPHILS % (AUTO) 4 % (1-7); LYMPHOCYTES # (AUTO) 2.33 x10^3/uL (1-3.4); LYMPHOCYTES % (AUTO) 34 % (22-44); MD NO; MEAN CORPUSCULAR HEMOGLOBIN 29.3 pg (27.0-34.8); MEAN CORPUSCULAR HGB CONC 31.9 g/dL (32.4-35.8); MEAN CORPUSCULAR VOLUME 91.7 fL (80-100); MEAN PLATELET VOLUME 7.5 fL (7.4-10.4); MONOCYTES # (AUTO) 0.66 x10^3/uL (0.2-0.8); MONOCYTES % (AUTO) 10 % (2-9); NEUTROPHILS # (AUTO) 3.55 x10^3/uL (1.8-6.8); NEUTROPHILS % (AUTO) 52 % (42-75); PLATELET COUNT 345 x10^3/uL (130-400); RED BLOOD COUNT 4.25 x10^6/uL (3.82-5.3); RED CELL DISTRIBUTION WIDTH 14.4 % (9.6-15.2)
[2019-01-28] MEDS ORDERED: PLEASE ENTER PATIENTS WEIGHT MC SCH (22:30)
[2019-01-28 22:35] LABS: ALANINE AMINOTRANSFERASE 19 U/L (12-78); ALBUMIN 2.6 g/dL (3.4-5.0); ANION GAP 4 mmol/L (5-15); CALCIUM 9.2 mg/dL (8.5-10.1); CHLORIDE 102 mmol/L (98-107); CREATININE 0.86 mg/dL (0.55-1.02); T4 (THYROXINE) 14.2 mcg/dL (4.8-13.9)
[2019-01-28 22:40] LABS: ALKALINE PHOSPHATASE 93 U/L (45-117); BILIRUBIN,TOTAL 0.2 mg/dL (0.2-1.0); TOTAL PROTEIN 8.3 g/dL (6.4-8.2); TROPONIN I < 0.015 ng/mL (0.000-0.045)
--- NOTE | 2019-01-28 22:53 | NUR ---
STRAIGHT CATH COMPLETED. UA COLLECTED AND WALKED TO LAB
[2019-01-28 23:01] LABS: MICROSCOPIC NOT IND
[2019-01-28 23:04] LABS: CULTURE INDICATED? NO
[2019-01-29] MEDS ORDERED: SODIUM CHLORIDE FLUSH 10ML SYR IVF PRN
--- NOTE | 2019-01-29 00:49 | NUR ---
REPORT TO CHLOE MACDONALD ON FLOOR
[2019-01-29] MEDS ORDERED: ENALAPRILAT 1.25 MG/ML, 2ML IVPush PRN (01:00)
[2019-01-29] MEDS ORDERED: ONDANSETRON 2MG/ML, 2ML IVPush PRN (01:00)
[2019-01-29] MEDS: ENOXAPARIN 40 MG/0.4 ML SQ SCH (02:50)
[2019-01-29] MEDS: methylPREDNISolone SOD SUCC 125 MG/2 ML IVPush SCH ×2 (02:50→13:06)
[2019-01-29] MEDS: CEFTRIAXONE PMX 1GM/50ML 50 ML IV SCH (02:50)
[2019-01-29] MEDS: ACETAMINOPHEN 325 MG TABLET PO PRN (02:50)
[2019-01-29 02:52] VITALS: BP 121/74
[2019-01-29] MEDS: ALBUTEROL SULFATE 2.5 MG/3 ML NPPB SCH ×4 (03:00→20:50)
[2019-01-29] MEDS ORDERED: ALBUTEROL SULFATE 2.5 MG/3 ML NPPB PRN (03:00)
[2019-01-29] MEDS: DOXYCYCLINE 100 MG in DEXTROSE 5% 250 ML IV SCH ×2 (04:10→13:06)
[2019-01-29 04:11] VITALS: BP 132/75
[2019-01-29 08:20] VITALS: BP 121/78
[2019-01-29] MEDS: LACTULOSE 10 GM/15 ML UDC PO SCH ×2 (09:16→21:39)
[2019-01-29] MEDS: DIVALPROEX 500 MG TABLET.DR PO SCH ×2 (12:21→21:38)
[2019-01-29] MEDS: OMEPRAZOLE 20 MG CAPSULE.DR PO SCH (12:22)
[2019-01-29] MEDS: DILTIAZEM 90 MG CAP.ER.12H PO SCH ×2 (12:38→21:38)
[2019-01-29] MEDS: BUDESONIDE 0.5 MG/2 ML INHA NPPB SCH ×2 (14:30→20:50)
[2019-01-29 20:33] VITALS: BP 113/70
[2019-01-29 21:31] VITALS: BP 126/65
[2019-01-29] MEDS: PROPRANOLOL 10 MG TABLET PO SCH (21:38)
[2019-01-30] MEDS: DOXYCYCLINE 100 MG in DEXTROSE 5% 250 ML IV SCH ×2 (00:44→13:28)
[2019-01-30] MEDS: OXYcodone/APAP 7.5/325MG TABLET PO PRN ×3 (00:46→19:41)
[2019-01-30] MEDS: methylPREDNISolone SOD SUCC 125 MG/2 ML IVPush SCH ×2 (01:05→13:28)
[2019-01-30 01:23] VITALS: BP 120/71
[2019-01-30] MEDS: ALBUTEROL SULFATE 2.5 MG/3 ML NPPB SCH ×4 (02:11→20:35)
[2019-01-30] MEDS: CEFTRIAXONE PMX 1GM/50ML 50 ML IV SCH (02:56)
[2019-01-30] MEDS: ENOXAPARIN 40 MG/0.4 ML SQ SCH (02:56)
[2019-01-30 05:03] LABS: BASOPHILS # (AUTO) 0.02 x10^3/uL (0-0.1); BASOPHILS % (AUTO) 0 % (0-1); EOSINOPHILS # (AUTO) 0.01 x10^3/uL (0-0.4); EOSINOPHILS % (AUTO) 0 % (1-7); LYMPHOCYTES % (AUTO) 22 % (22-44); MD NO; MEAN CORPUSCULAR HGB CONC 32.2 g/dL (32.4-35.8); MEAN PLATELET VOLUME 7.9 fL (7.4-10.4); MONOCYTES # (AUTO) 0.03 x10^3/uL (0.2-0.8); MONOCYTES % (AUTO) 1 % (2-9); NEUTROPHILS # (AUTO) 4.56 x10^3/uL (1.8-6.8); NEUTROPHILS % (AUTO) 77 % (42-75); PLATELET COUNT 320 x10^3/uL (130-400); RED BLOOD COUNT 4.01 x10^6/uL (3.82-5.3); RED CELL DISTRIBUTION WIDTH 14.3 % (9.6-15.2)
[2019-01-30 05:14] LABS: ALBUMIN 2.3 g/dL (3.4-5.0); ANION GAP 7 mmol/L (5-15); CALCIUM 8.8 mg/dL (8.5-10.1); CHLORIDE 101 mmol/L (98-107)
[2019-01-30 05:19] LABS: ALANINE AMINOTRANSFERASE 13 U/L (12-78); ALKALINE PHOSPHATASE 73 U/L (45-117); BILIRUBIN,TOTAL 0.1 mg/dL (0.2-1.0); CREATININE 0.48 mg/dL (0.55-1.02); TOTAL PROTEIN 7.2 g/dL (6.4-8.2)
[2019-01-30 07:48] VITALS: BP 145/61
[2019-01-30] MEDS: LACTULOSE 10 GM/15 ML UDC PO SCH (09:44)
[2019-01-30] MEDS: DILTIAZEM 90 MG CAP.ER.12H PO SCH ×2 (09:45→20:11)
[2019-01-30] MEDS: OMEPRAZOLE 20 MG CAPSULE.DR PO SCH (09:45)
[2019-01-30] MEDS: DIVALPROEX 500 MG TABLET.DR PO SCH ×2 (09:45→20:11)
[2019-01-30] MEDS: BUDESONIDE 0.5 MG/2 ML INHA NPPB SCH ×2 (10:02→20:35)
[2019-01-30 13:58] VITALS: BP 144/78
[2019-01-30 19:38] VITALS: BP 150/79
[2019-01-30] MEDS: PROPRANOLOL 10 MG TABLET PO SCH (20:11)
[2019-01-30] MEDS ORDERED: AMITRIPTYLINE 25 MG TABLET PO SCH (21:00)
[2019-01-30] MEDS: ACETAMINOPHEN 325 MG TABLET PO PRN (23:21)
[2019-01-31] MEDS: methylPREDNISolone SOD SUCC 125 MG/2 ML IVPush SCH ×2 (01:05→13:45)
[2019-01-31] MEDS: DOXYCYCLINE 100 MG in DEXTROSE 5% 250 ML IV SCH ×2 (01:05→14:01)
[2019-01-31] MEDS: CEFTRIAXONE PMX 1GM/50ML 50 ML IV SCH (02:36)
[2019-01-31] MEDS: OXYcodone/APAP 7.5/325MG TABLET PO PRN ×2 (02:37→08:53)
[2019-01-31 02:44] VITALS: BP 128/70
[2019-01-31] MEDS: ENOXAPARIN 40 MG/0.4 ML SQ SCH (02:46)
[2019-01-31] MEDS: ALBUTEROL SULFATE 2.5 MG/3 ML NPPB SCH ×3 (03:10→15:00)
[2019-01-31 08:50] VITALS: BP 131/65
[2019-01-31] MEDS: DIVALPROEX 500 MG TABLET.DR PO SCH (08:53)
[2019-01-31] MEDS: OMEPRAZOLE 20 MG CAPSULE.DR PO SCH (08:53)
[2019-01-31] MEDS: DILTIAZEM 90 MG CAP.ER.12H PO SCH (08:53)
[2019-01-31] MEDS: BUDESONIDE 0.5 MG/2 ML INHA NPPB SCH (09:38)
[2019-01-31 12:31] VITALS: BP 102/65
[2019-01-31] MEDS ORDERED: CEFD300C37 PO ×2 (15:23)
[2019-01-31] MEDS ORDERED: PRED20TA PO ×2 (15:23)
[2019-01-31] MEDS ORDERED: DOXY100T PO ×2 (15:23)
== END 2019-01-31 17:10 | disposition home health service (06) | DRG 193 ==
LOC: ED 23:33 → EDIP 01-29 00:58 → 3N 01-29 01:37 → DCLOUNGE 01-31 17:05
PROVIDERS: ADMIT Family Medicine; ATTEND Internal Medicine
DX: J18.9 Pneumonia, unspecified organism (principal); E43 Unspecified severe protein-calorie malnutrition; J44.0 Chronic obstructive pulmonary disease with (acute) lower respiratory infection; E72.20 Disorder of urea cycle metabolism, unspecified; J96.12 Chronic respiratory failure with hypercapnia; L89.612 Pressure ulcer of right heel, stage 2; E78.5 Hyperlipidemia, unspecified; F31.9 Bipolar disorder, unspecified; G89.29 Other chronic pain; I10 Essential (primary) hypertension; I89.0 Lymphedema, not elsewhere classified; Z90.710 Acquired absence of both cervix and uterus; Z99.81 Dependence on supplemental oxygen; Z90.49 Acquired absence of other specified parts of digestive tract
CPT/HCPCS: 36415; 70450; 71045; 80053; 80074; 81003; 82140; 83880; 84145; 84436; 84443; 84484; 85025; 87040; 93005; 93306; 94640; 96365; 96372; G0378; J0696; J1650; J7060; J7613; J7626; J2930

== ENCOUNTER 2019-02-07 14:35 | Inpatient (IN) | payer MEDICARE, MEDICAID ==
[~2019-02-07] VITALS: Ht 162.6 cm; Wt 84.2 kg
[~2019-02-07 14:35] MED LIST changes: +CEFD300C37 PO; +DOXY100T PO; +PRED20TA PO
--- NOTE | 2019-02-07 15:04 | NUR ---
BIB EMS FROM HOME, PT UNABLE TO STAND UNASSISTED AND MULTIPLE FALLS TODAY, +SOB AND MOIST PRODUCTIVE COUGH (SWALLOWS) D/C FROM [facility] 01/29. EMS RPTS THAT THEY WERE CALLED TO THE HOME ON WEDNESDAY FOR GLF. AT THAT TIME PT REFUSED TRANSPORT. THEY ASSISSTED THE PT OUT OF THE BATHROOM AND TO THE BEDROOM. PT HAD A FULL THICKNESS SKIN TEAR TO HER RIGHT FA WHICH THEY CLEANED AND DRESSED AND SAID THEY INSTRUCTED HER S.O. ON HOW TO REDRESS AND CARE FOR THE WOUND LEAVING HIM WITH ADDITIONAL DRESSING SUPPLIES. TODAY PT FELL AGAIN WHILE IN THE BATHROOM AND EMS WAS CALLED TO ASSIST BACK TO BED. EMS RPT PT TO WEEK TO HOLD HER WEIGHT AND DROPPED TO THE FLOOR TWICE 2/2 TO HER KNEES COLLAPSING UNDER HER. THEY RPT THAT PT DID NOT HIT HER HEAD. PT HAD SUSTAINED ANOTHER SKIN TEAR TO HER LEFT WRIST. THEY CLEANED AND DRESSED THE NEW WOUND. THE DRESSING THAT HAD BEEN APPLIED ON WEDNESDAY TO THE RIGHT FA WAS STILL INPLACE AND WAS FOUND TO BE DRIED AND STUCK TO HER SKIN. THEY RPT USING SALINE TO DEBREID THE DRESSING FROM THE SKIN APPLIED OINTMENT AND A NEW DRESSING. DURING THE ABOVE THE S.O. WAS VERY VERBAL IN HIS STUGGLES TO CARE FOR HER. PT ENCOURAGED TO ALLOW EMS TO TRANSPORT HER TO THE HOSPITAL. PT ARRIVES A&O RR 22-26 SP02 = 97% ON 2L NC. LUNG SOUNDS GREATLY DIMINISH T/O AND PT WITH MOIST PRODUCTIVE COUGH, BUT SWALLOWS. DR HAWKINS AT BEDSIDE, ASSESSMENT, POC DISCUSSED AND ORDERS REC'D
[2019-02-07 15:19] LABS: BASOPHILS # (AUTO) 0.03 x10^3/uL (0-0.1); BASOPHILS % (AUTO) 0 % (0-1); EOSINOPHILS % (AUTO) 7 % (1-7); LYMPHOCYTES # (AUTO) 2.05 x10^3/uL (1-3.4); LYMPHOCYTES % (AUTO) 23 % (22-44); MD NO; MEAN CORPUSCULAR HEMOGLOBIN 30.2 pg (27.0-34.8); MEAN CORPUSCULAR HGB CONC 33.6 g/dL (32.4-35.8); MEAN CORPUSCULAR VOLUME 89.9 fL (80-100); MEAN PLATELET VOLUME 7.8 fL (7.4-10.4); MONOCYTES # (AUTO) 1.13 x10^3/uL (0.2-0.8); MONOCYTES % (AUTO) 13 % (2-9); NEUTROPHILS # (AUTO) 5.13 x10^3/uL (1.8-6.8); NEUTROPHILS % (AUTO) 57 % (42-75); PLATELET COUNT 197 x10^3/uL (130-400); RED BLOOD COUNT 4.11 x10^6/uL (3.82-5.3); RED CELL DISTRIBUTION WIDTH 14.5 % (9.6-15.2)
[2019-02-07 15:28] LABS: ALANINE AMINOTRANSFERASE 31 U/L (12-78); ALBUMIN 2.2 g/dL (3.4-5.0); ANION GAP 3 mmol/L (5-15); CALCIUM 8.9 mg/dL (8.5-10.1); CHLORIDE 99 mmol/L (98-107); CREATININE 0.55 mg/dL (0.55-1.02)
[2019-02-07 15:30] LABS: ALKALINE PHOSPHATASE 65 U/L (45-117); BILIRUBIN,TOTAL 0.2 mg/dL (0.2-1.0); TOTAL PROTEIN 6.8 g/dL (6.4-8.2)
[2019-02-07] MEDS ORDERED: CEFTRIAXONE PMX 1GM/50ML 50 ML ONE (15:47)
[2019-02-07] MEDS ORDERED: ALBUTEROL/IPRATROPIUM 2.5MG/0.5MG, 3 ML ONE ×2 (15:49→20:39)
[2019-02-07] MEDS ORDERED: SODIUM CHLORIDE 0.9% 1,000ML IVBOLUS ONE (16:00)
[2019-02-07] MEDS ORDERED: CEFTRIAXONE PMX 1GM/50ML 50 ML IVPB ONE (16:00)
[2019-02-07] MEDS ORDERED: SODIUM CHLORIDE FLUSH 10ML SYR IVF ONE (16:00)
[2019-02-07] MEDS ORDERED: methylPREDNISolone SOD SUCC 125 MG/2 ML IVPush ONE (16:00)
[2019-02-07] MEDS ORDERED: AZITHROMYCIN 500 MG in SODIUM CHLORIDE 0.9% 250 ML IVPB ONE (16:00)
[2019-02-07] MEDS ORDERED: ALBUTEROL/IPRATROPIUM 2.5MG/0.5MG, 3 ML NPPB ONE (16:00)
[2019-02-07] MEDS ORDERED: ACETAMINOPHEN 325 MG TABLET ONE (16:17)
[2019-02-07] MEDS ORDERED: methylPREDNISolone SOD SUCC 125 MG/2 ML ONE (16:17)
[2019-02-07 16:30] LABS: MICROSCOPIC AUTO
[2019-02-07 16:31] LABS: CULTURE INDICATED? NO
[2019-02-07] MEDS ORDERED: SODIUM CHLORIDE FLUSH 10ML SYR IVF PRN (17:30)
[2019-02-07] MEDS ORDERED: GUAIFENESIN/DM 200-20MG, 10ML UDC PO PRN (18:30)
[2019-02-07] MEDS ORDERED: ACETAMINOPHEN 325 MG TABLET PO PRN (18:30)
[2019-02-07] MEDS ORDERED: POLYETHYLENE GLYCOL 17 GM PACKET PO PRN (18:30)
[2019-02-07] MEDS ORDERED: BISACODYL 10 MG SUPP PR PRN (18:30)
[2019-02-07] MEDS ORDERED: ONDANSETRON ODT 4 MG PO PRN (18:30)
[2019-02-07 19:48] VITALS: BP 104/67
[2019-02-07] MEDS ORDERED: ALBUTEROL/IPRATROPIUM 2.5MG/0.5MG, 3 ML NPPB SCH (20:00)
[2019-02-07] MEDS: HEPARIN 5,000 UNITS/ML, 1ML SQ SCH (20:42)
[2019-02-07] MEDS: DOXYCYCLINE 100 MG in DEXTROSE 5% 250 ML IV SCH (20:42)
[2019-02-07] MEDS: SIMVASTATIN 10 MG TABLET PO SCH (20:42)
[2019-02-07] MEDS: SODIUM CHLORIDE 0.9% 1,000 ML IV SCH (20:42)
[2019-02-07] MEDS: DIVALPROEX 500 MG TABLET.DR PO SCH (20:43)
[2019-02-07] MEDS: DILTIAZEM 90 MG TABLET PO SCH (20:43)
[2019-02-07] MEDS: BACLOFEN 10 MG TABLET PO SCH (20:43)
[2019-02-07] MEDS: PROPRANOLOL 10 MG TABLET PO SCH (20:43)
[2019-02-07] MEDS ORDERED: BUDESONIDE 0.5 MG/2 ML INHA NPPB SCH (21:00)
[2019-02-07 23:25] LABS: RAPID INFLUENZA A Negative (Negative); RAPID INFLUENZA B Negative (Negative)
[2019-02-08 00:24] VITALS: BP 110/74
[2019-02-08] MEDS: SODIUM CHLORIDE 0.9% 1,000 ML IV SCH ×3 (02:38→22:07)
[2019-02-08] MEDS: HEPARIN 5,000 UNITS/ML, 1ML SQ SCH ×3 (04:40→21:59)
[2019-02-08 05:55] LABS: ANION GAP 4 mmol/L (5-15); BASOPHILS # (AUTO) 0.01 x10^3/uL (0-0.1); BASOPHILS % (AUTO) 0 % (0-1); CALCIUM 8.3 mg/dL (8.5-10.1); CHLORIDE 104 mmol/L (98-107); EOSINOPHILS % (AUTO) 0 % (1-7); LYMPHOCYTES # (AUTO) 1.34 x10^3/uL (1-3.4); LYMPHOCYTES % (AUTO) 36 % (22-44); MD NO; MEAN CORPUSCULAR HEMOGLOBIN 29.1 pg (27.0-34.8); MEAN CORPUSCULAR HGB CONC 31.8 g/dL (32.4-35.8); MEAN CORPUSCULAR VOLUME 91.4 fL (80-100); MEAN PLATELET VOLUME 8.1 fL (7.4-10.4); MONOCYTES % (AUTO) 3 % (2-9); NEUTROPHILS # (AUTO) 2.25 x10^3/uL (1.8-6.8); NEUTROPHILS % (AUTO) 61 % (42-75); PLATELET COUNT 166 x10^3/uL (130-400); RED BLOOD COUNT 4.03 x10^6/uL (3.82-5.3); RED CELL DISTRIBUTION WIDTH 14.3 % (9.6-15.2)
[2019-02-08 05:59] LABS: ALANINE AMINOTRANSFERASE 21 U/L (12-78); ALKALINE PHOSPHATASE 55 U/L (45-117); CREATININE 0.45 mg/dL (0.55-1.02); TOTAL PROTEIN 6.2 g/dL (6.4-8.2)
[2019-02-08 06:00] LABS: BILIRUBIN,TOTAL < 0.1 mg/dL (0.2-1.0)
[2019-02-08] MEDS: ALBUTEROL/IPRATROPIUM 2.5MG/0.5MG, 3 ML NPPB SCH ×4 (07:45→19:07)
[2019-02-08 07:46] VITALS: BP 114/76
[2019-02-08] MEDS: DOXYCYCLINE 100 MG in DEXTROSE 5% 250 ML IV SCH ×2 (08:49→20:07)
[2019-02-08] MEDS: LORATADINE 10 MG TABLET PO SCH (08:49)
[2019-02-08] MEDS: DILTIAZEM 90 MG TABLET PO SCH ×2 (08:49→21:59)
[2019-02-08] MEDS: ASPIRIN 81 MG TABLET EC PO SCH (08:50)
[2019-02-08] MEDS: ASCORBIC ACID 500 MG TABLET PO SCH (08:50)
[2019-02-08] MEDS: DIVALPROEX 500 MG TABLET.DR PO SCH ×2 (08:50→22:01)
[2019-02-08] MEDS: OMEPRAZOLE 20 MG CAPSULE.DR PO SCH (08:50)
[2019-02-08] MEDS: BACLOFEN 10 MG TABLET PO SCH ×2 (08:50→22:01)
[2019-02-08] MEDS: MULTIVITAMINS/MINERALS TABLET PO SCH (08:50)
[2019-02-08] MEDS: SENNA/DOCUSATE TABLET PO SCH (08:51)
[2019-02-08] MEDS: LIDODERM 5% PATCH TD SCH (08:51)
[2019-02-08] MEDS: BUDESONIDE 0.5 MG/2 ML INHA NPPB SCH ×2 (09:00→19:07)
[2019-02-08] MEDS: FLUTICASONE NASAL SPRAY 16GM NAS SCH (09:00)
[2019-02-08] MEDS: OXYcodone/APAP 7.5/325MG TABLET PO PRN ×3 (10:12→22:01)
[2019-02-08 13:58] VITALS: BP 118/72
[2019-02-08] MEDS: CEFTRIAXONE PMX 1GM/50ML 50 ML IV SCH (15:33)
[2019-02-08 18:43] VITALS: BP 115/67
[2019-02-08] MEDS: SIMVASTATIN 10 MG TABLET PO SCH (21:59)
[2019-02-08] MEDS: PROPRANOLOL 10 MG TABLET PO SCH (22:00)
[2019-02-09 00:34] VITALS: BP 101/65
[2019-02-09] MEDS: OXYcodone/APAP 7.5/325MG TABLET PO PRN ×4 (02:43→18:28)
[2019-02-09] MEDS: SODIUM CHLORIDE 0.9% 1,000 ML IV SCH (05:28)
[2019-02-09] MEDS: HEPARIN 5,000 UNITS/ML, 1ML SQ SCH ×3 (05:28→21:36)
[2019-02-09 06:59] VITALS: BP 106/68
[2019-02-09] MEDS: BUDESONIDE 0.5 MG/2 ML INHA NPPB SCH ×2 (08:00→19:06)
[2019-02-09] MEDS: ALBUTEROL/IPRATROPIUM 2.5MG/0.5MG, 3 ML NPPB SCH ×4 (08:00→19:06)
[2019-02-09] MEDS: DOXYCYCLINE 100 MG in DEXTROSE 5% 250 ML IV SCH ×2 (08:50→19:47)
[2019-02-09] MEDS: FLUTICASONE NASAL SPRAY 16GM NAS SCH (08:50)
[2019-02-09] MEDS: DILTIAZEM 90 MG TABLET PO SCH ×2 (08:51→21:36)
[2019-02-09] MEDS: MULTIVITAMINS/MINERALS TABLET PO SCH (08:51)
[2019-02-09] MEDS: ASCORBIC ACID 500 MG TABLET PO SCH (08:51)
[2019-02-09] MEDS: ASPIRIN 81 MG TABLET EC PO SCH (08:51)
[2019-02-09] MEDS: OMEPRAZOLE 20 MG CAPSULE.DR PO SCH (08:51)
[2019-02-09] MEDS: DIVALPROEX 500 MG TABLET.DR PO SCH ×2 (08:52→21:36)
[2019-02-09] MEDS: BACLOFEN 10 MG TABLET PO SCH ×2 (08:52→21:36)
[2019-02-09] MEDS: LORATADINE 10 MG TABLET PO SCH (08:52)
[2019-02-09] MEDS: SENNA/DOCUSATE TABLET PO SCH (09:00)
[2019-02-09] MEDS: LIDODERM 5% PATCH TD SCH (09:00)
[2019-02-09 12:30] VITALS: BP 134/76
[2019-02-09] MEDS: CEFTRIAXONE PMX 1GM/50ML 50 ML IV SCH (16:28)
[2019-02-09 18:41] VITALS: BP 127/76
[2019-02-09 18:44] VITALS: BP 115/76
[2019-02-09] MEDS: PROPRANOLOL 10 MG TABLET PO SCH (21:36)
[2019-02-09] MEDS: SIMVASTATIN 10 MG TABLET PO SCH (21:36)
[2019-02-10] MEDS: OXYcodone/APAP 7.5/325MG TABLET PO PRN ×4 (00:40→21:26)
[2019-02-10] MEDS: HEPARIN 5,000 UNITS/ML, 1ML SQ SCH ×3 (05:07→21:26)
[2019-02-10] MEDS: BUDESONIDE 0.5 MG/2 ML INHA NPPB SCH ×2 (07:10→20:33)
[2019-02-10] MEDS: ALBUTEROL/IPRATROPIUM 2.5MG/0.5MG, 3 ML NPPB SCH ×4 (07:10→20:00)
[2019-02-10 07:35] VITALS: BP 118/73
[2019-02-10] MEDS: DOXYCYCLINE 100 MG in DEXTROSE 5% 250 ML IV SCH ×2 (08:38→20:01)
[2019-02-10] MEDS: ASPIRIN 81 MG TABLET EC PO SCH (08:39)
[2019-02-10] MEDS: LORATADINE 10 MG TABLET PO SCH (08:39)
[2019-02-10] MEDS: BACLOFEN 10 MG TABLET PO SCH ×2 (08:39→21:27)
[2019-02-10] MEDS: DILTIAZEM 90 MG TABLET PO SCH ×2 (08:39→21:26)
[2019-02-10] MEDS: FLUTICASONE NASAL SPRAY 16GM NAS SCH (08:39)
[2019-02-10] MEDS: DIVALPROEX 500 MG TABLET.DR PO SCH ×2 (08:39→21:28)
[2019-02-10] MEDS: MULTIVITAMINS/MINERALS TABLET PO SCH (08:39)
[2019-02-10] MEDS: ASCORBIC ACID 500 MG TABLET PO SCH (08:39)
[2019-02-10] MEDS: OMEPRAZOLE 20 MG CAPSULE.DR PO SCH (08:39)
[2019-02-10] MEDS: LIDODERM 5% PATCH TD SCH (08:40)
[2019-02-10] MEDS: SENNA/DOCUSATE TABLET PO SCH (08:40)
[2019-02-10 14:00] VITALS: BP 131/74
[2019-02-10] MEDS: CEFTRIAXONE PMX 1GM/50ML 50 ML IV SCH (16:16)
[2019-02-10 20:28] VITALS: BP 155/80
[2019-02-10] MEDS: SIMVASTATIN 10 MG TABLET PO SCH (21:27)
[2019-02-10] MEDS: PROPRANOLOL 10 MG TABLET PO SCH (21:27)
[2019-02-11 01:56] VITALS: BP 111/64
[2019-02-11] MEDS: HEPARIN 5,000 UNITS/ML, 1ML SQ SCH ×3 (05:10→19:33)
[2019-02-11 05:45] LABS: BASOPHILS # (AUTO) 0.02 x10^3/uL (0-0.1); BASOPHILS % (AUTO) 0 % (0-1); EOSINOPHILS # (AUTO) 0.32 x10^3/uL (0-0.4); EOSINOPHILS % (AUTO) 5 % (1-7); LYMPHOCYTES # (AUTO) 2.44 x10^3/uL (1-3.4); LYMPHOCYTES % (AUTO) 36 % (22-44); MD NO; MEAN CORPUSCULAR HEMOGLOBIN 29.6 pg (27.0-34.8); MEAN CORPUSCULAR HGB CONC 31.9 g/dL (32.4-35.8); MEAN CORPUSCULAR VOLUME 92.9 fL (80-100); MEAN PLATELET VOLUME 8.3 fL (7.4-10.4); MONOCYTES % (AUTO) 9 % (2-9); NEUTROPHILS # (AUTO) 3.47 x10^3/uL (1.8-6.8); NEUTROPHILS % (AUTO) 51 % (42-75); PLATELET COUNT 212 x10^3/uL (130-400); RED BLOOD COUNT 3.85 x10^6/uL (3.82-5.3); RED CELL DISTRIBUTION WIDTH 14.8 % (9.6-15.2)
[2019-02-11 05:54] LABS: ANION GAP 2 mmol/L (5-15); CALCIUM 8.5 mg/dL (8.5-10.1); CHLORIDE 101 mmol/L (98-107)
[2019-02-11] MEDS: BUDESONIDE 0.5 MG/2 ML INHA NPPB SCH ×2 (07:13→20:42)
[2019-02-11] MEDS: ALBUTEROL/IPRATROPIUM 2.5MG/0.5MG, 3 ML NPPB SCH ×4 (07:13→20:00)
[2019-02-11 08:00] VITALS: BP 155/80
[2019-02-11] MEDS: DIVALPROEX 500 MG TABLET.DR PO SCH ×2 (08:00→19:33)
[2019-02-11] MEDS: SENNA/DOCUSATE TABLET PO SCH (08:00)
[2019-02-11] MEDS: DOXYCYCLINE 100 MG in DEXTROSE 5% 250 ML IV SCH (08:00)
[2019-02-11] MEDS: ASPIRIN 81 MG TABLET EC PO SCH (08:01)
[2019-02-11] MEDS: MULTIVITAMINS/MINERALS TABLET PO SCH (08:01)
[2019-02-11] MEDS: ASCORBIC ACID 500 MG TABLET PO SCH (08:01)
[2019-02-11] MEDS: OMEPRAZOLE 20 MG CAPSULE.DR PO SCH (08:01)
[2019-02-11] MEDS: LORATADINE 10 MG TABLET PO SCH (08:01)
[2019-02-11] MEDS: DILTIAZEM 90 MG TABLET PO SCH ×2 (08:01→19:33)
[2019-02-11] MEDS: OXYcodone/APAP 7.5/325MG TABLET PO PRN ×2 (08:01→19:36)
[2019-02-11] MEDS: BACLOFEN 10 MG TABLET PO SCH ×2 (08:01→19:33)
[2019-02-11] MEDS: FLUTICASONE NASAL SPRAY 16GM NAS SCH (08:02)
[2019-02-11] MEDS: LIDODERM 5% PATCH TD SCH (09:00)
[2019-02-11 13:00] VITALS: BP 144/74
[2019-02-11] MEDS: DOXYCYCLINE 100MG CAP PO SCH (19:32)
[2019-02-11] MEDS: CEFDINIR 300 MG CAPSULE PO SCH (19:33)
[2019-02-11] MEDS: PROPRANOLOL 10 MG TABLET PO SCH (19:33)
[2019-02-11] MEDS: SIMVASTATIN 10 MG TABLET PO SCH (19:33)
[2019-02-11 19:50] VITALS: BP 122/75
[2019-02-12 01:58] VITALS: BP 125/73
[2019-02-12] MEDS: BUDESONIDE 0.5 MG/2 ML INHA NPPB SCH ×2 (07:30→19:51)
[2019-02-12] MEDS: ALBUTEROL/IPRATROPIUM 2.5MG/0.5MG, 3 ML NPPB SCH ×4 (07:30→19:51)
[2019-02-12 07:59] VITALS: BP 119/76
[2019-02-12] MEDS: FLUTICASONE NASAL SPRAY 16GM NAS SCH (08:37)
[2019-02-12] MEDS: SENNA/DOCUSATE TABLET PO SCH (08:37)
[2019-02-12] MEDS: HEPARIN 5,000 UNITS/ML, 1ML SQ SCH ×2 (08:37→17:00)
[2019-02-12] MEDS: DILTIAZEM 90 MG TABLET PO SCH ×2 (08:38→21:28)
[2019-02-12] MEDS: DIVALPROEX 500 MG TABLET.DR PO SCH ×2 (08:38→21:26)
[2019-02-12] MEDS: ASCORBIC ACID 500 MG TABLET PO SCH (08:38)
[2019-02-12] MEDS: ASPIRIN 81 MG TABLET EC PO SCH (08:38)
[2019-02-12] MEDS: MULTIVITAMINS/MINERALS TABLET PO SCH (08:38)
[2019-02-12] MEDS: CEFDINIR 300 MG CAPSULE PO SCH ×2 (08:38→21:26)
[2019-02-12] MEDS: OMEPRAZOLE 20 MG CAPSULE.DR PO SCH (08:38)
[2019-02-12] MEDS: LORATADINE 10 MG TABLET PO SCH (08:38)
[2019-02-12] MEDS: BACLOFEN 10 MG TABLET PO SCH ×2 (08:38→21:29)
[2019-02-12] MEDS: DOXYCYCLINE 100MG CAP PO SCH ×2 (08:38→21:26)
[2019-02-12] MEDS: LIDODERM 5% PATCH TD SCH (08:39)
[2019-02-12] MEDS: OXYcodone/APAP 7.5/325MG TABLET PO PRN ×2 (08:52→21:32)
[2019-02-12 12:26] VITALS: BP 126/68
[2019-02-12 19:09] VITALS: BP 124/76
[2019-02-12 21:21] VITALS: BP 117/75
[2019-02-12] MEDS: PROPRANOLOL 10 MG TABLET PO SCH (21:30)
[2019-02-12] MEDS: SIMVASTATIN 10 MG TABLET PO SCH (21:30)
[2019-02-12 22:42] VITALS: BP 115/67
[2019-02-13 00:58] VITALS: BP 92/53
[2019-02-13] MEDS: HEPARIN 5,000 UNITS/ML, 1ML SQ SCH ×3 (01:28→17:41)
[2019-02-13] MEDS: OXYcodone/APAP 7.5/325MG TABLET PO PRN ×3 (01:32→17:41)
[2019-02-13] MEDS: BUDESONIDE 0.5 MG/2 ML INHA NPPB SCH ×2 (07:10→21:00)
[2019-02-13] MEDS: ALBUTEROL/IPRATROPIUM 2.5MG/0.5MG, 3 ML NPPB SCH ×4 (07:10→20:00)
[2019-02-13 08:12] VITALS: BP 155/81
[2019-02-13] MEDS: SENNA/DOCUSATE TABLET PO SCH (09:00)
[2019-02-13] MEDS: FLUTICASONE NASAL SPRAY 16GM NAS SCH (09:00)
[2019-02-13] MEDS: LIDODERM 5% PATCH TD SCH (09:00)
[2019-02-13] MEDS: CEFDINIR 300 MG CAPSULE PO SCH ×2 (09:05→21:17)
[2019-02-13] MEDS: OMEPRAZOLE 20 MG CAPSULE.DR PO SCH (09:05)
[2019-02-13] MEDS: BACLOFEN 10 MG TABLET PO SCH ×2 (09:05→21:20)
[2019-02-13] MEDS: DOXYCYCLINE 100MG CAP PO SCH ×2 (09:05→21:18)
[2019-02-13] MEDS: LORATADINE 10 MG TABLET PO SCH (09:05)
[2019-02-13] MEDS: DILTIAZEM 90 MG TABLET PO SCH ×2 (09:05→21:21)
[2019-02-13] MEDS: MULTIVITAMINS/MINERALS TABLET PO SCH (09:06)
[2019-02-13] MEDS: ASCORBIC ACID 500 MG TABLET PO SCH (09:06)
[2019-02-13] MEDS: DIVALPROEX 500 MG TABLET.DR PO SCH ×2 (09:06→21:19)
[2019-02-13] MEDS: ASPIRIN 81 MG TABLET EC PO SCH (09:10)
[2019-02-13 13:20] VITALS: BP 120/79
[2019-02-13 18:54] VITALS: BP 111/71
[2019-02-13 21:14] VITALS: BP 103/67
[2019-02-13] MEDS: SIMVASTATIN 10 MG TABLET PO SCH (21:18)
[2019-02-13] MEDS: PROPRANOLOL 10 MG TABLET PO SCH (21:22)
[2019-02-14 00:59] VITALS: BP 102/66
[2019-02-14] MEDS: HEPARIN 5,000 UNITS/ML, 1ML SQ SCH ×3 (01:03→17:00)
[2019-02-14] MEDS: OXYcodone/APAP 7.5/325MG TABLET PO PRN ×2 (01:08→06:38)
[2019-02-14] MEDS: ALBUTEROL/IPRATROPIUM 2.5MG/0.5MG, 3 ML NPPB SCH ×3 (06:52→14:17)
[2019-02-14] MEDS: BUDESONIDE 0.5 MG/2 ML INHA NPPB SCH (06:52)
[2019-02-14 07:09] VITALS: BP 120/73
[2019-02-14] MEDS: FLUTICASONE NASAL SPRAY 16GM NAS SCH (09:00)
[2019-02-14] MEDS: LIDODERM 5% PATCH TD SCH (09:00)
[2019-02-14] MEDS: SENNA/DOCUSATE TABLET PO SCH (09:00)
[2019-02-14] MEDS: CEFDINIR 300 MG CAPSULE PO SCH (09:08)
[2019-02-14] MEDS: ASCORBIC ACID 500 MG TABLET PO SCH (09:08)
[2019-02-14] MEDS: DILTIAZEM 90 MG TABLET PO SCH (09:08)
[2019-02-14] MEDS: LORATADINE 10 MG TABLET PO SCH (09:08)
[2019-02-14] MEDS: MULTIVITAMINS/MINERALS TABLET PO SCH (09:08)
[2019-02-14] MEDS: BACLOFEN 10 MG TABLET PO SCH (09:09)
[2019-02-14] MEDS: DIVALPROEX 500 MG TABLET.DR PO SCH (09:09)
[2019-02-14] MEDS: OMEPRAZOLE 20 MG CAPSULE.DR PO SCH (09:09)
[2019-02-14] MEDS: DOXYCYCLINE 100MG CAP PO SCH (09:09)
[2019-02-14] MEDS: ASPIRIN 81 MG TABLET EC PO SCH (09:09)
[2019-02-14] MEDS ORDERED: DOXY100C2 PO (13:47)
[2019-02-14] MEDS ORDERED: CEFD300C37 PO (13:47)
[2019-02-14 13:49] VITALS: BP 124/76
== END 2019-02-14 19:10 | DRG 871 ==
LOC: ED 17:00 → EDIP 17:25 → 3N 19:10
PROVIDERS: ADMIT Internal Medicine; ATTEND Hospitalist
PROC: 0T9B70Z Drainage of Bladder with Drainage Device, Via Natural or Artificial Opening (ICD-10-PCS; principal; 2019-02-07)
DX: A41.9 Sepsis, unspecified organism (principal); J15.9 Unspecified bacterial pneumonia; J96.11 Chronic respiratory failure with hypoxia; E46 Unspecified protein-calorie malnutrition; J44.0 Chronic obstructive pulmonary disease with (acute) lower respiratory infection; Z68.31 Body mass index [BMI] 31.0-31.9, adult; E78.5 Hyperlipidemia, unspecified; F31.9 Bipolar disorder, unspecified; G89.29 Other chronic pain; H35.30 Unspecified macular degeneration; I10 Essential (primary) hypertension; W18.39XA Other fall on same level, initial encounter; S41.111A Laceration without foreign body of right upper arm, initial encounter; R29.6 Repeated falls; M54.9 Dorsalgia, unspecified; I89.0 Lymphedema, not elsewhere classified; I73.9 Peripheral vascular disease, unspecified; Z80.49 Family history of malignant neoplasm of other genital organs; Z82.49 Family history of ischemic heart disease and other diseases of the circulatory system; Z82.5 Family history of asthma and other chronic lower respiratory diseases; Z90.710 Acquired absence of both cervix and uterus; Z99.81 Dependence on supplemental oxygen; Z87.891 Personal history of nicotine dependence; Y93.89 Activity, other specified; Y92.098 Other place in other non-institutional residence as the place of occurrence of the external cause; Y99.8 Other external cause status; Z90.49 Acquired absence of other specified parts of digestive tract; Z88.5 Allergy status to narcotic agent; Z88.0 Allergy status to penicillin; Z88.2 Allergy status to sulfonamides
CPT/HCPCS: 36415; 71045; 72125; 72128; 80048; 80053; 81001; 83605; 84145; 85025; 87040; 87400; 93005; 94640; 96365; 96375; 99285; G0378; J0456; J0696; J1644; J7060; J7620; J7626; J2930; J7030; J7050

== ENCOUNTER 2019-09-09 15:18 | Emergency (ER) | payer MEDICARE, MEDICAID ==
[~2019-09-09] VITALS: Ht 162.6 cm; Wt 84.0 kg
[~2019-09-09 15:18] MED LIST changes: +DOXY100C2 PO; -MEGE40TA PO; +MEGE40TA3 PO; +ONDA-89 PO; -ONDA4TAB12 PO; +SIMV10TA18 PO; -SIMV10TA3 PO
--- NOTE | 2019-09-09 15:37 | NUR ---
Alesha Lyles [facility] [phone]
[2019-09-09 16:10] LABS: ALANINE AMINOTRANSFERASE 19 U/L (12-78); ALBUMIN 2.8 g/dL (3.4-5.0); ANION GAP 3 mmol/L (5-15); CALCIUM 8.5 mg/dL (8.5-10.1); CHLORIDE 108 mmol/L (98-107)
[2019-09-09 16:12] LABS: ALKALINE PHOSPHATASE 65 U/L (45-117); BILIRUBIN,TOTAL 0.2 mg/dL (0.2-1.0); TOTAL PROTEIN 6.9 g/dL (6.4-8.2)
[2019-09-09 16:20] LABS: MEAN CORPUSCULAR HEMOGLOBIN 29.2 pg (27.0-34.8); MEAN CORPUSCULAR VOLUME 91.1 fL (80-100); MEAN PLATELET VOLUME 8.9 fL (7.4-10.4); PLATELET COUNT 149 x10^3/uL (130-400); RED BLOOD COUNT 4.34 x10^6/uL (3.82-5.3); RED CELL DISTRIBUTION WIDTH 15.8 % (9.6-15.2)
--- NOTE | 2019-09-09 16:40 | NUR ---
SPOKE WITH BLU JOHNSON ABOUT PT DISCHARGE AT PT'S REQUEST. GRANDDAUGHTER CANNOT GIVE PT RIDE HOME AND TO MAKE CALLS TO SEE IF ANY FAMILY CAN GET PT HOME AND BE WITH HER. G-DAUGHTER THOUGHT THAT PT WOULD BE ADMITTED AND CONCERNED ABOUT GMA BEING HOME ALONE. PT FEELS SHE WILL BE ABLE TO CARE FOR HERSELF AT HOME. GRANDDAUGHTER TO CALL BACK AFTER ATTEMPTING TO GET PT RIDE [email or web address]
[2019-09-09 16:45] VITALS: BP 130/51
[2019-09-09 16:48] LABS: BASOPHILS # (AUTO) 0.01 x10^3/uL (0-0.1); BASOPHILS % (AUTO) 0 % (0-1); EOSINOPHILS % (AUTO) 0 % (1-7); LYMPHOCYTES # (AUTO) 3.05 x10^3/uL (1-3.4); LYMPHOCYTES % (AUTO) 58 % (22-44); MD SCAN; MONOCYTES # (AUTO) 0.67 x10^3/uL (0.2-0.8); MONOCYTES % (AUTO) 13 % (2-9); NEUTROPHILS # (AUTO) 1.57 x10^3/uL (1.8-6.8); NEUTROPHILS % (AUTO) 30 % (42-75)
--- NOTE | 2019-09-09 17:30 | NUR ---
PT PROVIDED SANDWICH TRAY AND TO SEE IF SHE CAN USE WALKER TO WALK BEFORE GOING HOME.
--- NOTE | 2019-09-09 18:22 | NUR ---
SPOKE WITH KATHY WHO STATES UNABLE TO GET A RIDE FOR PT. ADDITIONALLY SPOKE WITH BUTTON BRADDER WHO STATES HOME HEALTH WOULD NOT BE AN OPTION BECAUSE SHE IS AWAITING COVID RESULTS
--- NOTE | 2019-09-09 18:40 | NUR ---
PT ABLE TO AMBULATED WITHOUT ASSISTANCE USING WALKER.
--- NOTE | 2019-09-09 18:52 | NUR ---
BEDSIDE REPORT FROM CHLOE BHAT
--- NOTE | 2019-09-09 20:17 | NUR ---
Antwan jain in [facility] - 09/09/19 at 2018 by CHRISTY I ORDERED LACTIC ACID SEPSIS
== END 2019-09-09 20:21 | disposition home or self-care (01) ==
LOC: ED 16:14
DX: R50.9 Fever, unspecified (principal); R11.10 Vomiting, unspecified; R19.7 Diarrhea, unspecified; Z20.828 Contact with and (suspected) exposure to other viral communicable diseases; I10 Essential (primary) hypertension; J44.9 Chronic obstructive pulmonary disease, unspecified
CPT/HCPCS: 36415; 71045; 80053; 85025; 99284; U0001

== ENCOUNTER 2019-09-12 14:42 | Inpatient (IN) | payer MEDICARE, MEDICAID ==
[~2019-09-12] VITALS: Ht 162.6 cm; Wt 80.7 kg
[2019-09-12 16:59] LABS: MEAN CORPUSCULAR HEMOGLOBIN 29.2 pg (27.0-34.8); MEAN CORPUSCULAR HGB CONC 32.5 g/dL (32.4-35.8); MEAN PLATELET VOLUME 8.6 fL (7.4-10.4); PLATELET COUNT 119 x10^3/uL (130-400); RED BLOOD COUNT 4.22 x10^6/uL (3.82-5.3); RED CELL DISTRIBUTION WIDTH 15.9 % (9.6-15.2)
[2019-09-12 17:03] LABS: ALANINE AMINOTRANSFERASE 18 U/L (12-78); ALBUMIN 2.4 g/dL (3.4-5.0); ANION GAP 5 mmol/L (5-15); CHLORIDE 106 mmol/L (98-107); CREATININE 0.61 mg/dL (0.55-1.02)
[2019-09-12 17:04] LABS: D-DIMER 0.6 ug/mlFEU (0.00-0.52); INTERNATIONAL NORMALIZED RATIO 0.97 (0.93-1.1); PROTHROMBIN TIME 10.3 Seconds (9.6-11.5)
[2019-09-12 17:09] LABS: D-DIMER (DIC) 0.56 ug/mlFEU (0.00-0.52); PROTIME 10.5 Seconds (9.6-11.5)
[2019-09-12 17:10] LABS: ALKALINE PHOSPHATASE 65 U/L (45-117); BILIRUBIN,TOTAL 0.4 mg/dL (0.2-1.0); TOTAL PROTEIN 6.5 g/dL (6.4-8.2)
[2019-09-12 17:39] LABS: BASOPHILS # (AUTO) 0.01 x10^3/uL (0-0.1); BASOPHILS % (AUTO) 0 % (0-1); EOSINOPHILS # (AUTO) 0.01 x10^3/uL (0-0.4); EOSINOPHILS % (AUTO) 0 % (1-7); LYMPHOCYTES % (AUTO) 48 % (22-44); MD SCAN; MONOCYTES # (AUTO) 0.47 x10^3/uL (0.2-0.8); MONOCYTES % (AUTO) 13 % (2-9); NEUTROPHILS # (AUTO) 1.37 x10^3/uL (1.8-6.8); NEUTROPHILS % (AUTO) 39 % (42-75)
[2019-09-12] MEDS ORDERED: OMNIPAQUE 350 MG/ML, 100ML BOTTLE ONE (18:34)
--- NOTE | 2019-09-12 18:58 | NUR ---
UA OBTAINED VIA SC WITH TECH. ALIN MARVIN AREA RED. SKIN CREAM APPLIED. UA SENT TO LAB.
[2019-09-12 19:25] LABS: MICROSCOPIC AUTO
--- NOTE | 2019-09-12 20:25 | NUR ---
MT: SISTER (OMERO) WOULD LIKE TO BE CALLED WHEN ADMITTED - [phone]
[2019-09-12] MEDS ORDERED: BACL20TA PO (20:50)
[2019-09-12] MEDS ORDERED: ACETAMINOPHEN 325 MG TABLET PO PRN (21:00)
[2019-09-12] MEDS ORDERED: BISACODYL 10 MG SUPP PR PRN (21:00)
[2019-09-12] MEDS ORDERED: POLYETHYLENE GLYCOL 17 GM PACKET PO PRN (21:00)
[2019-09-12 21:15] VITALS: BP 132/77
[2019-09-12] MEDS ORDERED: DILTIAZEM 60 MG TABLET ONE (21:48)
[2019-09-12] MEDS ORDERED: DILTIAZEM 30 MG TABLET ONE (21:48)
[2019-09-12] MEDS: DILTIAZEM 90 MG TABLET PO SCH (21:54)
[2019-09-12] MEDS: DIVALPROEX 500 MG TABLET.DR PO SCH (21:55)
[2019-09-12] MEDS: BACLOFEN 10 MG TABLET PO SCH (21:55)
[2019-09-12] MEDS: OXYcodone/APAP 7.5/325MG TABLET PO PRN (21:55)
[2019-09-12] MEDS: SIMVASTATIN 10 MG TABLET PO SCH (21:55)
[2019-09-12] MEDS: SODIUM CHLORIDE 0.9% 1,000 ML IV SCH (21:56)
[2019-09-12] MEDS: HEPARIN 5,000 UNITS/ML, 1ML SQ SCH (21:57)
[2019-09-13 01:07] VITALS: BP 113/41
[2019-09-13] MEDS: OXYcodone/APAP 7.5/325MG TABLET PO PRN ×4 (03:07→21:10)
[2019-09-13 05:44] LABS: ANION GAP 5 mmol/L (5-15); CHLORIDE 107 mmol/L (98-107)
[2019-09-13 05:45] LABS: CREATININE 0.48 mg/dL (0.55-1.02)
[2019-09-13] MEDS: HEPARIN 5,000 UNITS/ML, 1ML SQ SCH ×3 (05:53→21:11)
[2019-09-13 06:04] LABS: MEAN CORPUSCULAR HEMOGLOBIN 29.4 pg (27.0-34.8); MEAN CORPUSCULAR HGB CONC 32.5 g/dL (32.4-35.8); MEAN CORPUSCULAR VOLUME 90.8 fL (80-100); MEAN PLATELET VOLUME 8.8 fL (7.4-10.4); PLATELET COUNT 111 x10^3/uL (130-400); RED CELL DISTRIBUTION WIDTH 15.9 % (9.6-15.2)
[2019-09-13 07:45] LABS: MD YES
[2019-09-13 07:49] LABS: BAND#(MANUAL) 0.33 x10^3/uL; BANDS%(MANUAL) 8 % (0-7); LYMPH#(MANUAL) 2.62 x10^3/uL (1-3.4); LYMPHS% (MANUAL) 64 % (22-44); METAMYELOCYTES# (MANUAL) 0.04 x10^3/uL (0-0); METAMYELOCYTES% (MANUAL) 1 % (0-1); MONOS#(MANUAL) 0.08 x10^3/uL (0.3-2.7); MONOS% (MANUAL) 2 % (2-9); SEG#(MANUAL) 1.03 x10^3/uL (1.8-6.8); SEGS% (MANUAL) 25 % (42-75)
[2019-09-13 07:51] LABS: <PLATELET ESTIMATE> DECREASED; <PLT MORPHOLOGY> NORMAL PLT MORPH; <RBC MORPHOLOGY> NORMAL
[2019-09-13 08:37] VITALS: BP 113/59
[2019-09-13] MEDS: OMEPRAZOLE 20 MG CAPSULE.DR PO SCH (08:43)
[2019-09-13] MEDS: DILTIAZEM 90 MG TABLET PO SCH ×2 (08:43→21:09)
[2019-09-13] MEDS: SENNA/DOCUSATE TABLET PO SCH (08:43)
[2019-09-13] MEDS: ASPIRIN 81 MG TABLET EC PO SCH (08:43)
[2019-09-13] MEDS: DIVALPROEX 500 MG TABLET.DR PO SCH ×2 (08:44→21:09)
[2019-09-13] MEDS: ASCORBIC ACID 500 MG TABLET PO SCH (08:44)
[2019-09-13] MEDS: ZINC SULFATE 220 MG CAPSULE PO SCH (08:44)
[2019-09-13] MEDS: FLUTICASONE NASAL SPRAY 16GM NAS SCH (08:44)
[2019-09-13] MEDS: MULTIVITAMINS/MINERALS TABLET PO SCH (08:44)
[2019-09-13] MEDS ORDERED: ASCORBIC ACID 500 MG TABLET PO SCH (09:00)
[2019-09-13] MEDS: ONDANSETRON ODT 4 MG PO PRN (09:09)
[2019-09-13] MEDS ORDERED: POTASSIUM CHLORIDE 20 MEQ TAB.ER.PRT PO ONE (12:30)
[2019-09-13 12:47] VITALS: BP 105/54
[2019-09-13] MEDS: CHOLECALCIFEROL 1,000 UNIT TABLET PO SCH (13:09)
[2019-09-13] MEDS: CEFTRIAXONE PMX 1GM/50ML 50 ML IV SCH (14:00)
[2019-09-13] MEDS: SODIUM CHLORIDE 0.9% 1,000 ML IV SCH (16:14)
[2019-09-13 18:43] VITALS: BP 117/60
[2019-09-13] MEDS ORDERED: DILTIAZEM 30 MG TABLET ONE (20:59)
[2019-09-13] MEDS: BACLOFEN 10 MG TABLET PO SCH (21:08)
[2019-09-13] MEDS: SIMVASTATIN 10 MG TABLET PO SCH (21:09)
[2019-09-14 00:06] VITALS: BP 119/63
[2019-09-14] MEDS: OXYcodone/APAP 7.5/325MG TABLET PO PRN ×4 (02:21→21:26)
[2019-09-14] MEDS: HEPARIN 5,000 UNITS/ML, 1ML SQ SCH ×3 (06:16→21:27)
[2019-09-14 06:29] LABS: CREATININE 0.53 mg/dL (0.55-1.02)
[2019-09-14 06:39] LABS: ANION GAP 5 mmol/L (5-15); CHLORIDE 110 mmol/L (98-107)
[2019-09-14] MEDS ORDERED: MAGNESIUM SULFATE PMX 2GM/50ML 50 ML IV ONE (07:00)
[2019-09-14] MEDS ORDERED: DILTIAZEM 30 MG TABLET ONE ×2 (07:26→21:12)
[2019-09-14 08:28] VITALS: BP 123/56
[2019-09-14] MEDS: OMEPRAZOLE 20 MG CAPSULE.DR PO SCH (08:34)
[2019-09-14] MEDS: ASPIRIN 81 MG TABLET EC PO SCH (08:34)
[2019-09-14] MEDS: SENNA/DOCUSATE TABLET PO SCH (08:34)
[2019-09-14] MEDS: FLUTICASONE NASAL SPRAY 16GM NAS SCH (08:34)
[2019-09-14] MEDS: DILTIAZEM 90 MG TABLET PO SCH ×2 (08:35→21:26)
[2019-09-14] MEDS: DIVALPROEX 500 MG TABLET.DR PO SCH ×2 (08:35→21:24)
[2019-09-14] MEDS: ASCORBIC ACID 500 MG TABLET PO SCH (08:35)
[2019-09-14] MEDS: ZINC SULFATE 220 MG CAPSULE PO SCH (08:35)
[2019-09-14] MEDS: MULTIVITAMINS/MINERALS TABLET PO SCH (08:35)
[2019-09-14] MEDS: CHOLECALCIFEROL 1,000 UNIT TABLET PO SCH (08:36)
[2019-09-14 12:54] VITALS: BP 134/59
[2019-09-14] MEDS: SODIUM CHLORIDE 0.9% 1,000 ML IV SCH (12:56)
[2019-09-14] MEDS: CEFTRIAXONE PMX 1GM/50ML 50 ML IV SCH (13:00)
[2019-09-14 20:46] VITALS: BP 116/60
[2019-09-14] MEDS ORDERED: DILTIAZEM 60 MG TABLET ONE (21:13)
[2019-09-14] MEDS: SIMVASTATIN 10 MG TABLET PO SCH (21:24)
[2019-09-14] MEDS: BACLOFEN 10 MG TABLET PO SCH (21:24)
[2019-09-15 01:55] VITALS: BP 109/69
[2019-09-15] MEDS: HEPARIN 5,000 UNITS/ML, 1ML SQ SCH ×3 (05:30→21:41)
[2019-09-15 08:31] VITALS: BP 124/61
[2019-09-15] MEDS ORDERED: DILTIAZEM 30 MG TABLET ONE (10:03)
[2019-09-15] MEDS: SODIUM CHLORIDE 0.9% 1,000 ML IV SCH (10:11)
[2019-09-15] MEDS: DILTIAZEM 90 MG TABLET PO SCH ×2 (10:12→20:55)
[2019-09-15] MEDS: DIVALPROEX 500 MG TABLET.DR PO SCH ×2 (10:13→21:40)
[2019-09-15] MEDS: ASCORBIC ACID 500 MG TABLET PO SCH (10:13)
[2019-09-15] MEDS: ZINC SULFATE 220 MG CAPSULE PO SCH (10:13)
[2019-09-15] MEDS: MULTIVITAMINS/MINERALS TABLET PO SCH (10:14)
[2019-09-15] MEDS: ASPIRIN 81 MG TABLET EC PO SCH (10:17)
[2019-09-15] MEDS: CHOLECALCIFEROL 1,000 UNIT TABLET PO SCH (10:17)
[2019-09-15] MEDS: OMEPRAZOLE 20 MG CAPSULE.DR PO SCH (10:18)
[2019-09-15] MEDS: SENNA/DOCUSATE TABLET PO SCH (10:23)
[2019-09-15] MEDS: FLUTICASONE NASAL SPRAY 16GM NAS SCH (10:24)
[2019-09-15] MEDS: OXYcodone/APAP 7.5/325MG TABLET PO PRN ×2 (10:55→16:53)
[2019-09-15 13:06] VITALS: BP 110/57
[2019-09-15] MEDS: CEFTRIAXONE PMX 1GM/50ML 50 ML IV SCH (14:35)
[2019-09-15 20:28] VITALS: BP 93/47
[2019-09-15 20:50] VITALS: BP 100/50
[2019-09-15] MEDS: BACLOFEN 10 MG TABLET PO SCH (21:41)
[2019-09-15] MEDS: SIMVASTATIN 10 MG TABLET PO SCH (21:41)
[2019-09-16 01:37] VITALS: BP 108/55
[2019-09-16] MEDS: OXYcodone/APAP 7.5/325MG TABLET PO PRN ×4 (03:56→21:26)
[2019-09-16] MEDS: HEPARIN 5,000 UNITS/ML, 1ML SQ SCH ×3 (05:46→21:19)
[2019-09-16] MEDS: SODIUM CHLORIDE 0.9% 1,000 ML IV SCH (05:46)
[2019-09-16 08:22] VITALS: BP 111/53
[2019-09-16] MEDS ORDERED: DILTIAZEM 30 MG TABLET ONE ×2 (09:35→21:13)
[2019-09-16] MEDS: MULTIVITAMINS/MINERALS TABLET PO SCH (09:49)
[2019-09-16] MEDS: OMEPRAZOLE 20 MG CAPSULE.DR PO SCH (09:49)
[2019-09-16] MEDS: DIVALPROEX 500 MG TABLET.DR PO SCH ×2 (09:49→21:18)
[2019-09-16] MEDS: ZINC SULFATE 220 MG CAPSULE PO SCH (09:51)
[2019-09-16] MEDS: ASPIRIN 81 MG TABLET EC PO SCH (09:53)
[2019-09-16] MEDS: DILTIAZEM 90 MG TABLET PO SCH ×2 (09:54→21:00)
[2019-09-16] MEDS: FLUTICASONE NASAL SPRAY 16GM NAS SCH (09:57)
[2019-09-16] MEDS: SENNA/DOCUSATE TABLET PO SCH (09:58)
[2019-09-16] MEDS: CHOLECALCIFEROL 1,000 UNIT TABLET PO SCH (09:58)
[2019-09-16] MEDS: ASCORBIC ACID 500 MG TABLET PO SCH (10:00)
[2019-09-16 13:21] VITALS: BP 120/65
[2019-09-16] MEDS: CEFTRIAXONE PMX 1GM/50ML 50 ML IV SCH (14:43)
[2019-09-16 21:09] VITALS: BP 107/59
[2019-09-16] MEDS ORDERED: DILTIAZEM 60 MG TABLET ONE (21:13)
[2019-09-16] MEDS: BACLOFEN 10 MG TABLET PO SCH (21:18)
[2019-09-16] MEDS: SIMVASTATIN 10 MG TABLET PO SCH (21:18)
[2019-09-17] MEDS: SODIUM CHLORIDE 0.9% 1,000 ML IV SCH ×2 (00:52→22:42)
[2019-09-17 03:19] VITALS: BP 108/59
[2019-09-17] MEDS: OXYcodone/APAP 7.5/325MG TABLET PO PRN ×4 (03:29→17:22)
[2019-09-17] MEDS: HEPARIN 5,000 UNITS/ML, 1ML SQ SCH ×3 (03:30→22:41)
[2019-09-17 08:02] VITALS: BP 101/47
[2019-09-17] MEDS: ZINC SULFATE 220 MG CAPSULE PO SCH (09:31)
[2019-09-17] MEDS: MULTIVITAMINS/MINERALS TABLET PO SCH (09:31)
[2019-09-17] MEDS: SENNA/DOCUSATE TABLET PO SCH (09:31)
[2019-09-17] MEDS: DIVALPROEX 500 MG TABLET.DR PO SCH ×2 (09:31→22:41)
[2019-09-17] MEDS: ASCORBIC ACID 500 MG TABLET PO SCH (09:31)
[2019-09-17] MEDS: ASPIRIN 81 MG TABLET EC PO SCH (09:31)
[2019-09-17] MEDS: OMEPRAZOLE 20 MG CAPSULE.DR PO SCH (09:31)
[2019-09-17] MEDS: DILTIAZEM 90 MG TABLET PO SCH ×2 (09:31→22:28)
[2019-09-17] MEDS: CHOLECALCIFEROL 1,000 UNIT TABLET PO SCH (09:32)
[2019-09-17] MEDS: FLUTICASONE NASAL SPRAY 16GM NAS SCH (09:38)
[2019-09-17 12:56] VITALS: BP 109/59
[2019-09-17] MEDS: CEFTRIAXONE PMX 1GM/50ML 50 ML IV SCH (13:16)
[2019-09-17 20:47] VITALS: BP 99/56
[2019-09-17 21:41] VITALS: BP 129/63
[2019-09-17] MEDS: SIMVASTATIN 10 MG TABLET PO SCH (22:41)
[2019-09-17] MEDS: BACLOFEN 10 MG TABLET PO SCH (22:41)
[2019-09-18 01:00] VITALS: BP 115/62
[2019-09-18] MEDS: HEPARIN 5,000 UNITS/ML, 1ML SQ SCH ×3 (06:05→21:23)
[2019-09-18 07:47] VITALS: BP 137/68
[2019-09-18] MEDS: FLUTICASONE NASAL SPRAY 16GM NAS SCH ×2 (09:00→09:37)
[2019-09-18] MEDS: ZINC SULFATE 220 MG CAPSULE PO SCH (09:36)
[2019-09-18] MEDS: ASCORBIC ACID 500 MG TABLET PO SCH (09:36)
[2019-09-18] MEDS: ASPIRIN 81 MG TABLET EC PO SCH (09:36)
[2019-09-18] MEDS: OMEPRAZOLE 20 MG CAPSULE.DR PO SCH (09:37)
[2019-09-18] MEDS: DILTIAZEM 90 MG TABLET PO SCH ×2 (09:37→21:23)
[2019-09-18] MEDS: MULTIVITAMINS/MINERALS TABLET PO SCH (09:37)
[2019-09-18] MEDS: SENNA/DOCUSATE TABLET PO SCH (09:37)
[2019-09-18] MEDS: CHOLECALCIFEROL 1,000 UNIT TABLET PO SCH (09:37)
[2019-09-18] MEDS: DIVALPROEX 500 MG TABLET.DR PO SCH ×2 (09:37→21:22)
[2019-09-18] MEDS: OXYcodone/APAP 7.5/325MG TABLET PO PRN ×3 (13:11→21:23)
[2019-09-18] MEDS: CEFTRIAXONE PMX 1GM/50ML 50 ML IV SCH (13:11)
[2019-09-18 14:51] VITALS: BP 135/71
[2019-09-18] MEDS: SODIUM CHLORIDE 0.9% 1,000 ML IV SCH (17:19)
--- NOTE | 2019-09-18 17:40 | NUR ---
green sheet initiated. walk with nursing 3 times a day up to chair for meals Shoulder presses 3x10 Leg kicks 3x10 Addendum: 09/18/19 at 1743 by Carol Tilley PT Amended: Links added.
[2019-09-18 20:51] VITALS: BP 113/61
[2019-09-18] MEDS: SIMVASTATIN 10 MG TABLET PO SCH (21:22)
[2019-09-18] MEDS: BACLOFEN 10 MG TABLET PO SCH (21:23)
[2019-09-19 01:22] VITALS: BP 115/61
[2019-09-19] MEDS: OXYcodone/APAP 7.5/325MG TABLET PO PRN ×3 (04:06→21:36)
[2019-09-19] MEDS: HEPARIN 5,000 UNITS/ML, 1ML SQ SCH ×3 (06:17→21:37)
[2019-09-19 08:10] VITALS: BP 129/62
[2019-09-19] MEDS: ZINC SULFATE 220 MG CAPSULE PO SCH (08:25)
[2019-09-19] MEDS: CHOLECALCIFEROL 1,000 UNIT TABLET PO SCH (08:25)
[2019-09-19] MEDS: ASCORBIC ACID 500 MG TABLET PO SCH (08:25)
[2019-09-19] MEDS: ASPIRIN 81 MG TABLET EC PO SCH (08:25)
[2019-09-19] MEDS: MULTIVITAMINS/MINERALS TABLET PO SCH (08:25)
[2019-09-19] MEDS: OMEPRAZOLE 20 MG CAPSULE.DR PO SCH (08:25)
[2019-09-19] MEDS: DILTIAZEM 90 MG TABLET PO SCH ×2 (08:26→21:36)
[2019-09-19] MEDS: DIVALPROEX 500 MG TABLET.DR PO SCH ×2 (08:26→21:36)
[2019-09-19] MEDS: FLUTICASONE NASAL SPRAY 16GM NAS SCH (09:00)
[2019-09-19] MEDS: SENNA/DOCUSATE TABLET PO SCH (09:00)
[2019-09-19] MEDS: CEFTRIAXONE PMX 1GM/50ML 50 ML IV SCH (13:18)
[2019-09-19 13:20] VITALS: BP 116/58
[2019-09-19] MEDS: SODIUM CHLORIDE 0.9% 1,000 ML IV SCH (13:22)
[2019-09-19 19:10] VITALS: BP 141/65
[2019-09-19] MEDS: SIMVASTATIN 10 MG TABLET PO SCH (21:36)
[2019-09-19] MEDS: BACLOFEN 10 MG TABLET PO SCH (21:36)
[2019-09-20 00:43] VITALS: BP 103/52
[2019-09-20] MEDS: OXYcodone/APAP 7.5/325MG TABLET PO PRN ×3 (03:18→21:15)
[2019-09-20] MEDS: HEPARIN 5,000 UNITS/ML, 1ML SQ SCH ×3 (06:16→21:22)
[2019-09-20 07:35] VITALS: BP 124/62
[2019-09-20] MEDS: FLUTICASONE NASAL SPRAY 16GM NAS SCH ×2 (09:00→09:24)
[2019-09-20] MEDS: SENNA/DOCUSATE TABLET PO SCH ×2 (09:00→09:24)
[2019-09-20] MEDS: ASCORBIC ACID 500 MG TABLET PO SCH (09:22)
[2019-09-20] MEDS: MULTIVITAMINS/MINERALS TABLET PO SCH (09:22)
[2019-09-20] MEDS: DIVALPROEX 500 MG TABLET.DR PO SCH ×2 (09:22→21:05)
[2019-09-20] MEDS: DILTIAZEM 90 MG TABLET PO SCH ×2 (09:22→21:05)
[2019-09-20] MEDS: OMEPRAZOLE 20 MG CAPSULE.DR PO SCH (09:23)
[2019-09-20] MEDS: ASPIRIN 81 MG TABLET EC PO SCH (09:23)
[2019-09-20] MEDS: CHOLECALCIFEROL 1,000 UNIT TABLET PO SCH (09:23)
[2019-09-20] MEDS: ZINC SULFATE 220 MG CAPSULE PO SCH (09:23)
[2019-09-20] MEDS: SODIUM CHLORIDE 0.9% 1,000 ML IV SCH (11:34)
[2019-09-20] MEDS: CEFTRIAXONE PMX 1GM/50ML 50 ML IV SCH (14:02)
[2019-09-20 14:25] VITALS: BP 103/48
[2019-09-20 19:36] VITALS: BP 107/55
[2019-09-20] MEDS: BACLOFEN 10 MG TABLET PO SCH (21:05)
[2019-09-20] MEDS: SIMVASTATIN 10 MG TABLET PO SCH (21:05)
[2019-09-21 01:11] VITALS: BP 102/48
[2019-09-21] MEDS: HEPARIN 5,000 UNITS/ML, 1ML SQ SCH ×3 (05:20→20:21)
[2019-09-21 08:16] VITALS: BP 118/59
[2019-09-21] MEDS: OXYcodone/APAP 7.5/325MG TABLET PO PRN ×3 (08:24→20:19)
[2019-09-21] MEDS: SODIUM CHLORIDE 0.9% 1,000 ML IV SCH (08:24)
[2019-09-21] MEDS: ASPIRIN 81 MG TABLET EC PO SCH (08:25)
[2019-09-21] MEDS: DILTIAZEM 90 MG TABLET PO SCH ×2 (08:26→20:20)
[2019-09-21] MEDS: OMEPRAZOLE 20 MG CAPSULE.DR PO SCH (08:27)
[2019-09-21] MEDS: MULTIVITAMINS/MINERALS TABLET PO SCH (08:27)
[2019-09-21] MEDS: ZINC SULFATE 220 MG CAPSULE PO SCH (08:27)
[2019-09-21] MEDS: DIVALPROEX 500 MG TABLET.DR PO SCH ×2 (08:27→20:19)
[2019-09-21] MEDS: CHOLECALCIFEROL 1,000 UNIT TABLET PO SCH (08:29)
[2019-09-21] MEDS: SENNA/DOCUSATE TABLET PO SCH (08:30)
[2019-09-21] MEDS: ASCORBIC ACID 500 MG TABLET PO SCH (08:30)
[2019-09-21] MEDS: FLUTICASONE NASAL SPRAY 16GM NAS SCH (08:31)
[2019-09-21 12:58] VITALS: BP 124/60
[2019-09-21] MEDS: CEFTRIAXONE PMX 1GM/50ML 50 ML IV SCH (13:16)
[2019-09-21 19:22] VITALS: BP 120/62
[2019-09-21] MEDS: SIMVASTATIN 10 MG TABLET PO SCH (20:19)
[2019-09-21] MEDS: BACLOFEN 10 MG TABLET PO SCH (20:20)
[2019-09-22 01:37] VITALS: BP 109/60
[2019-09-22] MEDS: HEPARIN 5,000 UNITS/ML, 1ML SQ SCH ×3 (05:30→20:30)
[2019-09-22 08:45] VITALS: BP 113/50
[2019-09-22] MEDS: MULTIVITAMINS/MINERALS TABLET PO SCH (09:20)
[2019-09-22] MEDS: CHOLECALCIFEROL 1,000 UNIT TABLET PO SCH (09:20)
[2019-09-22] MEDS: ASPIRIN 81 MG TABLET EC PO SCH (09:20)
[2019-09-22] MEDS: OMEPRAZOLE 20 MG CAPSULE.DR PO SCH (09:20)
[2019-09-22] MEDS: DIVALPROEX 500 MG TABLET.DR PO SCH ×2 (09:21→20:30)
[2019-09-22] MEDS: OXYcodone/APAP 7.5/325MG TABLET PO PRN ×3 (09:21→20:30)
[2019-09-22] MEDS: ZINC SULFATE 220 MG CAPSULE PO SCH (09:21)
[2019-09-22] MEDS: ASCORBIC ACID 500 MG TABLET PO SCH (09:21)
[2019-09-22] MEDS: FLUTICASONE NASAL SPRAY 16GM NAS SCH (09:21)
[2019-09-22] MEDS: DILTIAZEM 90 MG TABLET PO SCH ×2 (09:21→20:29)
[2019-09-22] MEDS: SENNA/DOCUSATE TABLET PO SCH (09:22)
[2019-09-22] MEDS ORDERED: ALBUTEROL SULFATE 2.5 MG/3 ML NPPB PRN (12:00)
[2019-09-22 13:33] VITALS: BP 124/53
[2019-09-22] MEDS ORDERED: ALBUTEROL MDI INH PRN (18:30)
[2019-09-22 19:20] VITALS: BP 101/58
[2019-09-22] MEDS: BACLOFEN 10 MG TABLET PO SCH (20:29)
[2019-09-22] MEDS: SIMVASTATIN 10 MG TABLET PO SCH (20:29)
[2019-09-23] MEDS: OXYcodone/APAP 7.5/325MG TABLET PO PRN ×4 (01:13→22:54)
[2019-09-23 01:24] VITALS: BP 95/63
[2019-09-23] MEDS: HEPARIN 5,000 UNITS/ML, 1ML SQ SCH ×3 (05:53→22:54)
[2019-09-23 08:58] VITALS: BP 114/50
[2019-09-23] MEDS: FLUTICASONE NASAL SPRAY 16GM NAS SCH (09:56)
[2019-09-23] MEDS: ZINC SULFATE 220 MG CAPSULE PO SCH (09:56)
[2019-09-23] MEDS: ASCORBIC ACID 500 MG TABLET PO SCH (09:56)
[2019-09-23] MEDS: DIVALPROEX 500 MG TABLET.DR PO SCH ×2 (09:59→20:37)
[2019-09-23] MEDS: MULTIVITAMINS/MINERALS TABLET PO SCH (10:00)
[2019-09-23] MEDS: CHOLECALCIFEROL 1,000 UNIT TABLET PO SCH (10:01)
[2019-09-23] MEDS: OMEPRAZOLE 20 MG CAPSULE.DR PO SCH (10:01)
[2019-09-23] MEDS: DILTIAZEM 60 MG TABLET PO SCH ×2 (10:03→20:37)
[2019-09-23] MEDS: ASPIRIN 81 MG TABLET EC PO SCH (10:03)
[2019-09-23] MEDS: SENNA/DOCUSATE TABLET PO SCH (10:03)
[2019-09-23] MEDS: ALBUTEROL HFA 90 MCG/SPRAY INH PRN (11:20)
[2019-09-23 14:04] VITALS: BP 97/40
[2019-09-23 19:53] VITALS: BP 96/49
[2019-09-23] MEDS: SIMVASTATIN 10 MG TABLET PO SCH (20:37)
[2019-09-23] MEDS: BACLOFEN 10 MG TABLET PO SCH (20:37)
[2019-09-23 20:38] VITALS: BP 104/51
[2019-09-24 00:58] VITALS: BP 100/50
[2019-09-24] MEDS: OXYcodone/APAP 7.5/325MG TABLET PO PRN ×4 (04:10→21:52)
[2019-09-24] MEDS: HEPARIN 5,000 UNITS/ML, 1ML SQ SCH ×3 (06:06→21:53)
[2019-09-24] MEDS: OMEPRAZOLE 20 MG CAPSULE.DR PO SCH (09:27)
[2019-09-24] MEDS: ASPIRIN 81 MG TABLET EC PO SCH (09:28)
[2019-09-24] MEDS: CHOLECALCIFEROL 1,000 UNIT TABLET PO SCH (09:28)
[2019-09-24] MEDS: DILTIAZEM 60 MG TABLET PO SCH ×2 (09:28→21:52)
[2019-09-24] MEDS: SENNA/DOCUSATE TABLET PO SCH (09:28)
[2019-09-24] MEDS: MULTIVITAMINS/MINERALS TABLET PO SCH (09:28)
[2019-09-24] MEDS: DIVALPROEX 500 MG TABLET.DR PO SCH ×2 (09:28→21:52)
[2019-09-24] MEDS: ASCORBIC ACID 500 MG TABLET PO SCH (09:28)
[2019-09-24] MEDS: ZINC SULFATE 220 MG CAPSULE PO SCH (09:30)
[2019-09-24] MEDS: FLUTICASONE NASAL SPRAY 16GM NAS SCH (09:30)
[2019-09-24 10:49] VITALS: BP 124/56
[2019-09-24 13:49] VITALS: BP 105/53
[2019-09-24 21:28] VITALS: BP 114/56
[2019-09-24] MEDS: SIMVASTATIN 10 MG TABLET PO SCH (21:52)
[2019-09-24] MEDS: BACLOFEN 10 MG TABLET PO SCH (21:53)
[2019-09-25 00:53] VITALS: BP 102/52
[2019-09-25] MEDS: OXYcodone/APAP 7.5/325MG TABLET PO PRN ×4 (03:09→20:49)
[2019-09-25] MEDS: HEPARIN 5,000 UNITS/ML, 1ML SQ SCH ×3 (06:09→22:59)
[2019-09-25 06:39] VITALS: BP 108/60
[2019-09-25] MEDS: SENNA/DOCUSATE TABLET PO SCH (09:00)
[2019-09-25] MEDS: FLUTICASONE NASAL SPRAY 16GM NAS SCH (09:00)
[2019-09-25] MEDS: ASCORBIC ACID 500 MG TABLET PO SCH (10:10)
[2019-09-25] MEDS: ASPIRIN 81 MG TABLET EC PO SCH (10:10)
[2019-09-25] MEDS: MULTIVITAMINS/MINERALS TABLET PO SCH (10:11)
[2019-09-25] MEDS: OMEPRAZOLE 20 MG CAPSULE.DR PO SCH (10:11)
[2019-09-25] MEDS: DIVALPROEX 500 MG TABLET.DR PO SCH ×2 (10:11→20:49)
[2019-09-25] MEDS: CHOLECALCIFEROL 1,000 UNIT TABLET PO SCH (10:11)
[2019-09-25] MEDS: ZINC SULFATE 220 MG CAPSULE PO SCH (10:12)
[2019-09-25] MEDS: DILTIAZEM 60 MG TABLET PO SCH ×2 (10:12→20:49)
[2019-09-25] MEDS: ALBUTEROL HFA 90 MCG/SPRAY INH PRN (11:45)
--- NOTE | 2019-09-25 14:05 | NUR ---
Do not anticipate need for WIRE INSERTER intervention at time of discharge. Addendum: 09/25/19 at 1405 by Leanne HUERTA Amended: Links added.
[2019-09-25 14:09] VITALS: BP 140/74
--- NOTE | 2019-09-25 15:08 | NUR ---
Observed that the green sheet was only completed for 09/18/19, no other days were completed. Erased green sheet dates and changed them for this week. Addendum: 09/25/19 at 1512 by Carol Tilley PT Amended: Links added.
[2019-09-25 18:59] VITALS: BP 115/64
[2019-09-25] MEDS: BACLOFEN 10 MG TABLET PO SCH (20:50)
[2019-09-25] MEDS: SIMVASTATIN 10 MG TABLET PO SCH (20:50)
[2019-09-26 01:41] VITALS: BP 130/61
[2019-09-26] MEDS: OXYcodone/APAP 7.5/325MG TABLET PO PRN ×4 (01:57→20:42)
[2019-09-26] MEDS: HEPARIN 5,000 UNITS/ML, 1ML SQ SCH ×3 (06:18→22:37)
[2019-09-26 07:40] VITALS: BP 102/76
[2019-09-26] MEDS: OMEPRAZOLE 20 MG CAPSULE.DR PO SCH (08:57)
[2019-09-26] MEDS: ASPIRIN 81 MG TABLET EC PO SCH (08:57)
[2019-09-26] MEDS: SENNA/DOCUSATE TABLET PO SCH ×2 (08:57→09:00)
[2019-09-26] MEDS: DIVALPROEX 500 MG TABLET.DR PO SCH ×2 (08:58→20:41)
[2019-09-26] MEDS: ZINC SULFATE 220 MG CAPSULE PO SCH (08:58)
[2019-09-26] MEDS: ASCORBIC ACID 500 MG TABLET PO SCH (08:58)
[2019-09-26] MEDS: DILTIAZEM 60 MG TABLET PO SCH ×2 (08:58→20:41)
[2019-09-26] MEDS: MULTIVITAMINS/MINERALS TABLET PO SCH (08:58)
[2019-09-26] MEDS: CHOLECALCIFEROL 1,000 UNIT TABLET PO SCH (08:59)
[2019-09-26] MEDS: FLUTICASONE NASAL SPRAY 16GM NAS SCH (09:00)
[2019-09-26 14:06] VITALS: BP 108/71
[2019-09-26 19:03] VITALS: BP 103/50
[2019-09-26] MEDS: BACLOFEN 10 MG TABLET PO SCH (20:41)
[2019-09-26] MEDS: SIMVASTATIN 10 MG TABLET PO SCH (20:41)
[2019-09-27 00:45] VITALS: BP 90/43
[2019-09-27] MEDS: OXYcodone/APAP 7.5/325MG TABLET PO PRN ×4 (00:49→22:32)
[2019-09-27] MEDS: HEPARIN 5,000 UNITS/ML, 1ML SQ SCH ×3 (05:50→21:55)
[2019-09-27 08:20] VITALS: BP 118/55
[2019-09-27] MEDS: CHOLECALCIFEROL 1,000 UNIT TABLET PO SCH (10:08)
[2019-09-27] MEDS: ZINC SULFATE 220 MG CAPSULE PO SCH (10:09)
[2019-09-27] MEDS: DIVALPROEX 500 MG TABLET.DR PO SCH ×2 (10:09→21:54)
[2019-09-27] MEDS: DILTIAZEM 60 MG TABLET PO SCH ×2 (10:09→21:54)
[2019-09-27] MEDS: ASPIRIN 81 MG TABLET EC PO SCH (10:09)
[2019-09-27] MEDS: MULTIVITAMINS/MINERALS TABLET PO SCH (10:09)
[2019-09-27] MEDS: ASCORBIC ACID 500 MG TABLET PO SCH (10:09)
[2019-09-27] MEDS: SENNA/DOCUSATE TABLET PO SCH (10:09)
[2019-09-27] MEDS: OMEPRAZOLE 20 MG CAPSULE.DR PO SCH (10:09)
[2019-09-27] MEDS: FLUTICASONE NASAL SPRAY 16GM NAS SCH ×2 (10:10→10:21)
[2019-09-27] MEDS: ONDANSETRON ODT 4 MG PO PRN (11:03)
[2019-09-27 14:52] VITALS: BP 105/52
[2019-09-27 18:43] VITALS: BP 107/51
[2019-09-27] MEDS: BACLOFEN 10 MG TABLET PO SCH (21:53)
[2019-09-27] MEDS: SIMVASTATIN 10 MG TABLET PO SCH (21:54)
[2019-09-28 02:16] VITALS: BP 106/56
[2019-09-28] MEDS: OXYcodone/APAP 7.5/325MG TABLET PO PRN ×4 (02:45→21:13)
[2019-09-28] MEDS: HEPARIN 5,000 UNITS/ML, 1ML SQ SCH ×3 (05:42→21:18)
[2019-09-28 07:26] VITALS: BP 107/55
[2019-09-28] MEDS: FLUTICASONE NASAL SPRAY 16GM NAS SCH (08:53)
[2019-09-28] MEDS: OMEPRAZOLE 20 MG CAPSULE.DR PO SCH (08:54)
[2019-09-28] MEDS: DILTIAZEM 60 MG TABLET PO SCH ×2 (08:54→21:13)
[2019-09-28] MEDS: SENNA/DOCUSATE TABLET PO SCH (08:54)
[2019-09-28] MEDS: MULTIVITAMINS/MINERALS TABLET PO SCH (08:55)
[2019-09-28] MEDS: ASCORBIC ACID 500 MG TABLET PO SCH (08:55)
[2019-09-28] MEDS: CHOLECALCIFEROL 1,000 UNIT TABLET PO SCH (08:55)
[2019-09-28] MEDS: ZINC SULFATE 220 MG CAPSULE PO SCH (08:55)
[2019-09-28] MEDS: ASPIRIN 81 MG TABLET EC PO SCH (08:55)
[2019-09-28] MEDS: DIVALPROEX 500 MG TABLET.DR PO SCH ×2 (08:58→21:18)
[2019-09-28 13:37] VITALS: BP 116/52
[2019-09-28 20:17] VITALS: BP 100/50
[2019-09-28] MEDS: SIMVASTATIN 10 MG TABLET PO SCH (21:17)
[2019-09-28] MEDS: BACLOFEN 10 MG TABLET PO SCH (21:17)
[2019-09-29 01:03] VITALS: BP 97/49
[2019-09-29] MEDS: OXYcodone/APAP 7.5/325MG TABLET PO PRN ×4 (04:32→21:29)
[2019-09-29 05:42] LABS: MEAN CORPUSCULAR HEMOGLOBIN 29.6 pg (27.0-34.8); MEAN CORPUSCULAR HGB CONC 32.5 g/dL (32.4-35.8); MEAN CORPUSCULAR VOLUME 91.1 fL (80-100); MEAN PLATELET VOLUME 8.5 fL (7.4-10.4); PLATELET COUNT 244 x10^3/uL (130-400); RED BLOOD COUNT 3.81 x10^6/uL (3.82-5.3)
[2019-09-29 05:44] LABS: ALBUMIN 2.4 g/dL (3.4-5.0); ANION GAP 0 mmol/L (5-15); CALCIUM 9.5 mg/dL (8.5-10.1); CHLORIDE 101 mmol/L (98-107)
[2019-09-29] MEDS: HEPARIN 5,000 UNITS/ML, 1ML SQ SCH ×3 (05:46→21:29)
[2019-09-29 05:48] LABS: ALANINE AMINOTRANSFERASE 14 U/L (12-78); ALKALINE PHOSPHATASE 57 U/L (45-117); BILIRUBIN,TOTAL 0.1 mg/dL (0.2-1.0); CREATININE 0.58 mg/dL (0.55-1.02); TOTAL PROTEIN 6.5 g/dL (6.4-8.2)
[2019-09-29 06:25] LABS: BASOPHILS # (AUTO) 0.04 x10^3/uL (0-0.1); BASOPHILS % (AUTO) 1 % (0-1); EOSINOPHILS # (AUTO) 0.06 x10^3/uL (0-0.4); EOSINOPHILS % (AUTO) 1 % (1-7); LYMPHOCYTES # (AUTO) 2.63 x10^3/uL (1-3.4); LYMPHOCYTES % (AUTO) 57 % (22-44); MD SCAN; MONOCYTES # (AUTO) 0.54 x10^3/uL (0.2-0.8); MONOCYTES % (AUTO) 12 % (2-9); NEUTROPHILS # (AUTO) 1.33 x10^3/uL (1.8-6.8); NEUTROPHILS % (AUTO) 29 % (42-75)
[2019-09-29 08:55] VITALS: BP 98/47
[2019-09-29] MEDS: SENNA/DOCUSATE TABLET PO SCH (09:00)
[2019-09-29] MEDS: FLUTICASONE NASAL SPRAY 16GM NAS SCH (09:00)
[2019-09-29] MEDS: DILTIAZEM 60 MG TABLET PO SCH ×2 (09:22→21:30)
[2019-09-29] MEDS: ASCORBIC ACID 500 MG TABLET PO SCH (09:22)
[2019-09-29] MEDS: ASPIRIN 81 MG TABLET EC PO SCH (09:22)
[2019-09-29] MEDS: OMEPRAZOLE 20 MG CAPSULE.DR PO SCH (09:23)
[2019-09-29] MEDS: MULTIVITAMINS/MINERALS TABLET PO SCH (09:23)
[2019-09-29] MEDS: DIVALPROEX 500 MG TABLET.DR PO SCH ×2 (09:23→21:30)
[2019-09-29] MEDS: ZINC SULFATE 220 MG CAPSULE PO SCH (09:23)
[2019-09-29 09:24] VITALS: BP 114/49
[2019-09-29] MEDS: CHOLECALCIFEROL 1,000 UNIT TABLET PO SCH (09:24)
[2019-09-29 13:27] VITALS: BP 112/51
[2019-09-29] MEDS: ALBUTEROL HFA 90 MCG/SPRAY INH PRN (15:20)
[2019-09-29 21:02] VITALS: BP 100/46
[2019-09-29] MEDS: SIMVASTATIN 10 MG TABLET PO SCH (21:30)
[2019-09-29] MEDS: BACLOFEN 10 MG TABLET PO SCH (21:30)
[2019-09-30 00:09] VITALS: BP 110/50
[2019-09-30] MEDS: OXYcodone/APAP 7.5/325MG TABLET PO PRN ×3 (05:03→21:54)
[2019-09-30] MEDS: HEPARIN 5,000 UNITS/ML, 1ML SQ SCH ×3 (05:03→21:55)
[2019-09-30 07:06] VITALS: BP 102/53
[2019-09-30] MEDS: DIVALPROEX 500 MG TABLET.DR PO SCH ×2 (08:04→21:54)
[2019-09-30] MEDS: ASPIRIN 81 MG TABLET EC PO SCH (08:04)
[2019-09-30] MEDS: MULTIVITAMINS/MINERALS TABLET PO SCH (08:04)
[2019-09-30] MEDS: OMEPRAZOLE 20 MG CAPSULE.DR PO SCH (08:04)
[2019-09-30] MEDS: CHOLECALCIFEROL 1,000 UNIT TABLET PO SCH (08:04)
[2019-09-30] MEDS: ZINC SULFATE 220 MG CAPSULE PO SCH (08:04)
[2019-09-30] MEDS: ASCORBIC ACID 500 MG TABLET PO SCH (08:04)
[2019-09-30] MEDS: FLUTICASONE NASAL SPRAY 16GM NAS SCH (08:05)
[2019-09-30] MEDS: SENNA/DOCUSATE TABLET PO SCH (08:05)
[2019-09-30] MEDS: DILTIAZEM 60 MG TABLET PO SCH ×2 (08:05→21:54)
[2019-09-30 13:01] VITALS: BP 105/56
[2019-09-30 21:52] VITALS: BP 115/56
[2019-09-30] MEDS: SIMVASTATIN 10 MG TABLET PO SCH (21:54)
[2019-09-30] MEDS: BACLOFEN 10 MG TABLET PO SCH (21:54)
[2019-09-30] MEDS: NYSTATIN OINT 15GM TP SCH (21:57)
[2019-10-01 01:19] VITALS: BP 109/59
[2019-10-01] MEDS ORDERED: LACTATED RINGERS 1,000 ML IV SCH (04:30)
[2019-10-01] MEDS: OXYcodone/APAP 7.5/325MG TABLET PO PRN (05:14)
[2019-10-01] MEDS: HEPARIN 5,000 UNITS/ML, 1ML SQ SCH ×3 (05:14→22:26)
[2019-10-01 08:40] VITALS: BP 116/56
[2019-10-01] MEDS: DIVALPROEX 500 MG TABLET.DR PO SCH ×2 (08:54→21:18)
[2019-10-01] MEDS: SENNA/DOCUSATE TABLET PO SCH (08:54)
[2019-10-01] MEDS: MULTIVITAMINS/MINERALS TABLET PO SCH (08:55)
[2019-10-01] MEDS: ASCORBIC ACID 500 MG TABLET PO SCH (08:55)
[2019-10-01] MEDS: FLUTICASONE NASAL SPRAY 16GM NAS SCH (08:55)
[2019-10-01] MEDS: OMEPRAZOLE 20 MG CAPSULE.DR PO SCH (08:55)
[2019-10-01] MEDS: NYSTATIN OINT 15GM TP SCH ×3 (08:55→21:21)
[2019-10-01] MEDS: CHOLECALCIFEROL 1,000 UNIT TABLET PO SCH (08:55)
[2019-10-01] MEDS: ZINC SULFATE 220 MG CAPSULE PO SCH (08:55)
[2019-10-01] MEDS: DILTIAZEM 60 MG TABLET PO SCH ×2 (08:55→21:17)
[2019-10-01] MEDS: ASPIRIN 81 MG TABLET EC PO SCH (08:55)
[2019-10-01 13:12] VITALS: BP 116/55
[2019-10-01 19:06] VITALS: BP 125/73
[2019-10-01] MEDS: BACLOFEN 10 MG TABLET PO SCH (21:19)
[2019-10-01] MEDS: SIMVASTATIN 10 MG TABLET PO SCH (21:20)
[2019-10-02 01:00] VITALS: BP 115/55
[2019-10-02] MEDS: OXYcodone/APAP 7.5/325MG TABLET PO PRN ×4 (05:13→21:05)
[2019-10-02] MEDS: HEPARIN 5,000 UNITS/ML, 1ML SQ SCH ×3 (06:11→21:04)
[2019-10-02 06:33] VITALS: BP 126/63
[2019-10-02] MEDS: SENNA/DOCUSATE TABLET PO SCH (09:17)
[2019-10-02] MEDS: ASCORBIC ACID 500 MG TABLET PO SCH (09:35)
[2019-10-02] MEDS: DIVALPROEX 500 MG TABLET.DR PO SCH ×2 (09:36→21:05)
[2019-10-02] MEDS: ZINC SULFATE 220 MG CAPSULE PO SCH (09:36)
[2019-10-02] MEDS: NYSTATIN OINT 15GM TP SCH ×3 (09:37→21:04)
[2019-10-02] MEDS: CHOLECALCIFEROL 1,000 UNIT TABLET PO SCH (09:38)
[2019-10-02] MEDS: MULTIVITAMINS/MINERALS TABLET PO SCH (09:38)
[2019-10-02] MEDS: ASPIRIN 81 MG TABLET EC PO SCH (09:39)
[2019-10-02] MEDS: OMEPRAZOLE 20 MG CAPSULE.DR PO SCH (09:39)
[2019-10-02] MEDS: DILTIAZEM 60 MG TABLET PO SCH ×2 (09:39→21:04)
[2019-10-02] MEDS: FLUTICASONE NASAL SPRAY 16GM NAS SCH (09:40)
[2019-10-02 12:59] VITALS: BP 130/61
[2019-10-02] MEDS: ALBUTEROL HFA 90 MCG/SPRAY INH PRN (17:20)
[2019-10-02 19:16] VITALS: BP 131/51
[2019-10-02] MEDS: SIMVASTATIN 10 MG TABLET PO SCH (21:04)
[2019-10-02] MEDS: BACLOFEN 10 MG TABLET PO SCH (21:05)
[2019-10-03 00:55] VITALS: BP 95/49
[2019-10-03] MEDS: OXYcodone/APAP 7.5/325MG TABLET PO PRN ×4 (05:59→21:42)
[2019-10-03] MEDS: HEPARIN 5,000 UNITS/ML, 1ML SQ SCH ×3 (06:00→21:40)
[2019-10-03 08:15] VITALS: BP 112/59
[2019-10-03] MEDS: CHOLECALCIFEROL 1,000 UNIT TABLET PO SCH (08:32)
[2019-10-03] MEDS: SENNA/DOCUSATE TABLET PO SCH ×2 (08:32→08:56)
[2019-10-03] MEDS: OMEPRAZOLE 20 MG CAPSULE.DR PO SCH (08:32)
[2019-10-03] MEDS: ZINC SULFATE 220 MG CAPSULE PO SCH (08:32)
[2019-10-03] MEDS: MULTIVITAMINS/MINERALS TABLET PO SCH (08:33)
[2019-10-03] MEDS: ASPIRIN 81 MG TABLET EC PO SCH (08:33)
[2019-10-03] MEDS: FLUTICASONE NASAL SPRAY 16GM NAS SCH (08:33)
[2019-10-03] MEDS: ASCORBIC ACID 500 MG TABLET PO SCH (08:33)
[2019-10-03] MEDS: DILTIAZEM 60 MG TABLET PO SCH ×2 (08:33→21:42)
[2019-10-03] MEDS: DIVALPROEX 500 MG TABLET.DR PO SCH ×2 (08:33→21:42)
[2019-10-03] MEDS: NYSTATIN OINT 15GM TP SCH ×3 (08:34→21:43)
[2019-10-03 12:40] VITALS: BP 112/61
[2019-10-03 20:04] VITALS: BP 115/46
[2019-10-03] MEDS: BACLOFEN 10 MG TABLET PO SCH (21:42)
[2019-10-03] MEDS: SIMVASTATIN 10 MG TABLET PO SCH (21:42)
[2019-10-04 02:00] VITALS: BP 112/58
[2019-10-04] MEDS: OXYcodone/APAP 7.5/325MG TABLET PO PRN ×5 (02:03→21:38)
[2019-10-04] MEDS: HEPARIN 5,000 UNITS/ML, 1ML SQ SCH ×3 (06:06→20:29)
[2019-10-04 07:22] VITALS: BP 105/55
[2019-10-04] MEDS: ASPIRIN 81 MG TABLET EC PO SCH (08:07)
[2019-10-04] MEDS: OMEPRAZOLE 20 MG CAPSULE.DR PO SCH (08:07)
[2019-10-04] MEDS: CHOLECALCIFEROL 1,000 UNIT TABLET PO SCH (08:07)
[2019-10-04] MEDS: DIVALPROEX 500 MG TABLET.DR PO SCH ×2 (08:07→20:29)
[2019-10-04] MEDS: DILTIAZEM 60 MG TABLET PO SCH ×2 (08:07→20:28)
[2019-10-04] MEDS: ZINC SULFATE 220 MG CAPSULE PO SCH (08:07)
[2019-10-04] MEDS: ASCORBIC ACID 500 MG TABLET PO SCH (08:07)
[2019-10-04] MEDS: MULTIVITAMINS/MINERALS TABLET PO SCH (08:08)
[2019-10-04] MEDS: NYSTATIN OINT 15GM TP SCH ×3 (08:19→20:29)
[2019-10-04] MEDS: ALBUTEROL HFA 90 MCG/SPRAY INH PRN (08:20)
[2019-10-04] MEDS: FLUTICASONE NASAL SPRAY 16GM NAS SCH (08:25)
[2019-10-04] MEDS: SENNA/DOCUSATE TABLET PO SCH (08:25)
[2019-10-04 15:00] VITALS: BP 108/74
[2019-10-04] MEDS: SIMVASTATIN 10 MG TABLET PO SCH (20:29)
[2019-10-04] MEDS: BACLOFEN 10 MG TABLET PO SCH (20:29)
[2019-10-04 20:42] VITALS: BP 121/60
[2019-10-05 01:59] VITALS: BP 120/74
[2019-10-05] MEDS: OXYcodone/APAP 7.5/325MG TABLET PO PRN ×4 (02:17→20:56)
[2019-10-05] MEDS: HEPARIN 5,000 UNITS/ML, 1ML SQ SCH ×3 (05:54→23:41)
[2019-10-05 08:00] VITALS: BP 105/69
[2019-10-05] MEDS: SENNA/DOCUSATE TABLET PO SCH (09:00)
[2019-10-05] MEDS: FLUTICASONE NASAL SPRAY 16GM NAS SCH (09:00)
[2019-10-05] MEDS: CHOLECALCIFEROL 1,000 UNIT TABLET PO SCH (09:41)
[2019-10-05] MEDS: DILTIAZEM 60 MG TABLET PO SCH ×2 (09:42→20:56)
[2019-10-05] MEDS: ASPIRIN 81 MG TABLET EC PO SCH (09:42)
[2019-10-05] MEDS: DIVALPROEX 500 MG TABLET.DR PO SCH ×2 (09:42→20:56)
[2019-10-05] MEDS: ZINC SULFATE 220 MG CAPSULE PO SCH (09:42)
[2019-10-05] MEDS: OMEPRAZOLE 20 MG CAPSULE.DR PO SCH (09:43)
[2019-10-05] MEDS: MULTIVITAMINS/MINERALS TABLET PO SCH (09:43)
[2019-10-05] MEDS: ASCORBIC ACID 500 MG TABLET PO SCH (09:43)
[2019-10-05] MEDS: NYSTATIN OINT 15GM TP SCH (09:44)
[2019-10-05 14:38] VITALS: BP 122/68
[2019-10-05 19:10] VITALS: BP 105/71
[2019-10-05] MEDS: BACLOFEN 10 MG TABLET PO SCH (20:56)
[2019-10-05] MEDS: SIMVASTATIN 10 MG TABLET PO SCH (20:56)
[2019-10-05] MEDS: NYSTATIN TOPICAL POWDER 15GM TP SCH (20:57)
[2019-10-06 01:51] VITALS: BP 111/68
[2019-10-06 07:10] VITALS: BP 102/67
[2019-10-06] MEDS: HEPARIN 5,000 UNITS/ML, 1ML SQ SCH ×2 (08:38→17:54)
[2019-10-06] MEDS: OXYcodone/APAP 7.5/325MG TABLET PO PRN ×3 (08:39→21:13)
[2019-10-06] MEDS: DILTIAZEM 60 MG TABLET PO SCH ×2 (08:39→21:14)
[2019-10-06] MEDS: SENNA/DOCUSATE TABLET PO SCH (08:39)
[2019-10-06] MEDS: CHOLECALCIFEROL 1,000 UNIT TABLET PO SCH (08:39)
[2019-10-06] MEDS: ASPIRIN 81 MG TABLET EC PO SCH (08:40)
[2019-10-06] MEDS: ZINC SULFATE 220 MG CAPSULE PO SCH (08:40)
[2019-10-06] MEDS: DIVALPROEX 500 MG TABLET.DR PO SCH ×2 (08:40→21:14)
[2019-10-06] MEDS: OMEPRAZOLE 20 MG CAPSULE.DR PO SCH (08:40)
[2019-10-06] MEDS: MULTIVITAMINS/MINERALS TABLET PO SCH (08:40)
[2019-10-06] MEDS: ASCORBIC ACID 500 MG TABLET PO SCH (08:40)
[2019-10-06] MEDS: FLUTICASONE NASAL SPRAY 16GM NAS SCH (09:00)
[2019-10-06] MEDS: NYSTATIN TOPICAL POWDER 15GM TP SCH ×2 (09:53→21:14)
[2019-10-06 13:06] VITALS: BP 112/75
[2019-10-06 18:47] VITALS: BP 96/65
[2019-10-06] MEDS: BACLOFEN 10 MG TABLET PO SCH (21:13)
[2019-10-06] MEDS: SIMVASTATIN 10 MG TABLET PO SCH (21:14)
[2019-10-07 00:28] VITALS: BP 114/73
[2019-10-07] MEDS: HEPARIN 5,000 UNITS/ML, 1ML SQ SCH ×3 (00:41→16:58)
[2019-10-07] MEDS: OXYcodone/APAP 7.5/325MG TABLET PO PRN ×4 (01:49→17:02)
[2019-10-07 04:41] LABS: BASOPHILS # (AUTO) 0.06 x10^3/uL (0-0.1); BASOPHILS % (AUTO) 1 % (0-1); EOSINOPHILS # (AUTO) 0.07 x10^3/uL (0-0.4); EOSINOPHILS % (AUTO) 1 % (1-7); LYMPHOCYTES # (AUTO) 3.02 x10^3/uL (1-3.4); LYMPHOCYTES % (AUTO) 53 % (22-44); MD NO; MEAN CORPUSCULAR HEMOGLOBIN 29.6 pg (27.0-34.8); MEAN CORPUSCULAR HGB CONC 31.9 g/dL (32.4-35.8); MEAN CORPUSCULAR VOLUME 92.6 fL (80-100); MEAN PLATELET VOLUME 9.9 fL (7.4-10.4); MONOCYTES # (AUTO) 0.54 x10^3/uL (0.2-0.8); MONOCYTES % (AUTO) 9 % (2-9); NEUTROPHILS # (AUTO) 1.99 x10^3/uL (1.8-6.8); NEUTROPHILS % (AUTO) 35 % (42-75); PLATELET COUNT 157 x10^3/uL (130-400); RED BLOOD COUNT 3.85 x10^6/uL (3.82-5.3); RED CELL DISTRIBUTION WIDTH 15.6 % (9.6-15.2)
[2019-10-07 04:52] LABS: ANION GAP 3 mmol/L (5-15); CALCIUM 9.2 mg/dL (8.5-10.1); CHLORIDE 103 mmol/L (98-107)
[2019-10-07 08:05] VITALS: BP 110/68
[2019-10-07] MEDS: MULTIVITAMINS/MINERALS TABLET PO SCH (08:34)
[2019-10-07] MEDS: CHOLECALCIFEROL 1,000 UNIT TABLET PO SCH (08:34)
[2019-10-07] MEDS: ASCORBIC ACID 500 MG TABLET PO SCH (08:34)
[2019-10-07] MEDS: ZINC SULFATE 220 MG CAPSULE PO SCH (08:34)
[2019-10-07] MEDS: DIVALPROEX 500 MG TABLET.DR PO SCH ×2 (08:35→21:50)
[2019-10-07] MEDS: SENNA/DOCUSATE TABLET PO SCH (08:36)
[2019-10-07] MEDS: DILTIAZEM 60 MG TABLET PO SCH ×2 (08:36→21:49)
[2019-10-07] MEDS: FLUTICASONE NASAL SPRAY 16GM NAS SCH (08:36)
[2019-10-07] MEDS: OMEPRAZOLE 20 MG CAPSULE.DR PO SCH (08:36)
[2019-10-07] MEDS: ASPIRIN 81 MG TABLET EC PO SCH (08:36)
[2019-10-07] MEDS: NYSTATIN TOPICAL POWDER 15GM TP SCH ×2 (08:45→21:49)
[2019-10-07 12:45] VITALS: BP 107/68
[2019-10-07 19:35] VITALS: BP 114/72
[2019-10-07] MEDS: BACLOFEN 10 MG TABLET PO SCH (21:49)
[2019-10-07] MEDS: SIMVASTATIN 10 MG TABLET PO SCH (21:50)
[2019-10-08 00:41] VITALS: BP 105/68
[2019-10-08] MEDS: HEPARIN 5,000 UNITS/ML, 1ML SQ SCH ×3 (00:49→17:22)
[2019-10-08] MEDS: OXYcodone/APAP 7.5/325MG TABLET PO PRN ×4 (00:54→13:27)
[2019-10-08 05:40] LABS: MEAN CORPUSCULAR HEMOGLOBIN 29.7 pg (27.0-34.8); MEAN CORPUSCULAR HGB CONC 32.3 g/dL (32.4-35.8); MEAN CORPUSCULAR VOLUME 91.9 fL (80-100); MEAN PLATELET VOLUME 9.8 fL (7.4-10.4); PLATELET COUNT 148 x10^3/uL (130-400); RED BLOOD COUNT 3.79 x10^6/uL (3.82-5.3); RED CELL DISTRIBUTION WIDTH 15.3 % (9.6-15.2)
[2019-10-08 05:58] LABS: ANION GAP 3 mmol/L (5-15); CALCIUM 9.7 mg/dL (8.5-10.1); CHLORIDE 104 mmol/L (98-107); CREATININE 0.53 mg/dL (0.55-1.02)
[2019-10-08 06:10] LABS: BASOPHILS # (AUTO) 0.03 x10^3/uL (0-0.1); BASOPHILS % (AUTO) 1 % (0-1); EOSINOPHILS # (AUTO) 0.07 x10^3/uL (0-0.4); EOSINOPHILS % (AUTO) 2 % (1-7); LYMPHOCYTES % (AUTO) 60 % (22-44); MD SCAN; MONOCYTES # (AUTO) 0.48 x10^3/uL (0.2-0.8); MONOCYTES % (AUTO) 10 % (2-9); NEUTROPHILS # (AUTO) 1.45 x10^3/uL (1.8-6.8); NEUTROPHILS % (AUTO) 29 % (42-75)
[2019-10-08 08:43] VITALS: BP 120/77
[2019-10-08] MEDS: SENNA/DOCUSATE TABLET PO SCH (09:00)
[2019-10-08] MEDS: FLUTICASONE NASAL SPRAY 16GM NAS SCH (09:00)
[2019-10-08] MEDS: CHOLECALCIFEROL 1,000 UNIT TABLET PO SCH (09:10)
[2019-10-08] MEDS: DIVALPROEX 500 MG TABLET.DR PO SCH ×2 (09:10→20:36)
[2019-10-08] MEDS: ASCORBIC ACID 500 MG TABLET PO SCH (09:10)
[2019-10-08] MEDS: DILTIAZEM 60 MG TABLET PO SCH ×2 (09:11→20:36)
[2019-10-08] MEDS: ASPIRIN 81 MG TABLET EC PO SCH (09:11)
[2019-10-08] MEDS: OMEPRAZOLE 20 MG CAPSULE.DR PO SCH (09:11)
[2019-10-08] MEDS: MULTIVITAMINS/MINERALS TABLET PO SCH (09:11)
[2019-10-08] MEDS: ZINC SULFATE 220 MG CAPSULE PO SCH (09:11)
[2019-10-08] MEDS: NYSTATIN TOPICAL POWDER 15GM TP SCH ×2 (09:12→20:36)
[2019-10-08 12:04] VITALS: BP 121/75
[2019-10-08 19:39] VITALS: BP 120/60
[2019-10-08] MEDS: BACLOFEN 10 MG TABLET PO SCH (20:36)
[2019-10-08] MEDS: SIMVASTATIN 10 MG TABLET PO SCH (20:36)
[2019-10-09] MEDS: OXYcodone/APAP 7.5/325MG TABLET PO PRN ×5 (00:11→23:51)
[2019-10-09] MEDS: HEPARIN 5,000 UNITS/ML, 1ML SQ SCH ×3 (00:12→18:01)
[2019-10-09 00:25] VITALS: BP 124/77
[2019-10-09 06:47] VITALS: BP 113/68
[2019-10-09] MEDS: FLUTICASONE NASAL SPRAY 16GM NAS SCH (09:00)
[2019-10-09] MEDS: SENNA/DOCUSATE TABLET PO SCH (09:14)
[2019-10-09] MEDS: CHOLECALCIFEROL 1,000 UNIT TABLET PO SCH (09:14)
[2019-10-09] MEDS: MULTIVITAMINS/MINERALS TABLET PO SCH (09:15)
[2019-10-09] MEDS: OMEPRAZOLE 20 MG CAPSULE.DR PO SCH (09:15)
[2019-10-09] MEDS: ASPIRIN 81 MG TABLET EC PO SCH (09:15)
[2019-10-09] MEDS: DIVALPROEX 500 MG TABLET.DR PO SCH ×2 (09:15→19:48)
[2019-10-09] MEDS: DILTIAZEM 60 MG TABLET PO SCH ×2 (09:15→19:47)
[2019-10-09] MEDS: ASCORBIC ACID 500 MG TABLET PO SCH (09:15)
[2019-10-09] MEDS: NYSTATIN TOPICAL POWDER 15GM TP SCH ×2 (09:16→19:47)
[2019-10-09] MEDS: ZINC SULFATE 220 MG CAPSULE PO SCH (09:20)
[2019-10-09 14:10] VITALS: BP 100/68
[2019-10-09 18:56] VITALS: BP 136/80
[2019-10-09] MEDS: BACLOFEN 10 MG TABLET PO SCH (19:47)
[2019-10-09] MEDS: SIMVASTATIN 10 MG TABLET PO SCH (19:48)
[2019-10-10 00:08] VITALS: BP 105/70
[2019-10-10] MEDS: HEPARIN 5,000 UNITS/ML, 1ML SQ SCH ×3 (01:09→17:21)
[2019-10-10] MEDS: OXYcodone/APAP 7.5/325MG TABLET PO PRN ×4 (03:58→20:26)
[2019-10-10 06:47] VITALS: BP 111/72
[2019-10-10] MEDS: FLUTICASONE NASAL SPRAY 16GM NAS SCH (09:00)
[2019-10-10] MEDS: ASPIRIN 81 MG TABLET EC PO SCH (09:10)
[2019-10-10] MEDS: CHOLECALCIFEROL 1,000 UNIT TABLET PO SCH (09:10)
[2019-10-10] MEDS: ASCORBIC ACID 500 MG TABLET PO SCH (09:10)
[2019-10-10] MEDS: DILTIAZEM 60 MG TABLET PO SCH ×2 (09:11→20:26)
[2019-10-10] MEDS: ZINC SULFATE 220 MG CAPSULE PO SCH (09:11)
[2019-10-10] MEDS: OMEPRAZOLE 20 MG CAPSULE.DR PO SCH (09:11)
[2019-10-10] MEDS: MULTIVITAMINS/MINERALS TABLET PO SCH (09:11)
[2019-10-10] MEDS: SENNA/DOCUSATE TABLET PO SCH (09:11)
[2019-10-10] MEDS: NYSTATIN TOPICAL POWDER 15GM TP SCH ×2 (09:11→20:27)
[2019-10-10] MEDS: DIVALPROEX 500 MG TABLET.DR PO SCH ×2 (09:11→20:26)
[2019-10-10 12:40] VITALS: BP 122/74
[2019-10-10] MEDS ORDERED: DILT60TA27 PO (14:24)
[2019-10-10] MEDS ORDERED: HEPA50002 SQ (14:24)
[2019-10-10] MEDS ORDERED: NYST15PO2 TP (14:24)
[2019-10-10] MEDS: BACLOFEN 10 MG TABLET PO SCH (20:26)
[2019-10-10] MEDS: SIMVASTATIN 10 MG TABLET PO SCH (20:26)
[2019-10-10 21:00] VITALS: BP 105/71
[2019-10-11 01:09] VITALS: BP 114/71
[2019-10-11] MEDS: OXYcodone/APAP 7.5/325MG TABLET PO PRN ×3 (01:28→10:05)
[2019-10-11] MEDS: HEPARIN 5,000 UNITS/ML, 1ML SQ SCH ×2 (02:00→08:53)
[2019-10-11 04:53] LABS: MEAN CORPUSCULAR HEMOGLOBIN 29.5 pg (27.0-34.8); MEAN CORPUSCULAR HGB CONC 32.2 g/dL (32.4-35.8); MEAN CORPUSCULAR VOLUME 91.4 fL (80-100); MEAN PLATELET VOLUME 9.6 fL (7.4-10.4); PLATELET COUNT 147 x10^3/uL (130-400); RED CELL DISTRIBUTION WIDTH 15.3 % (9.6-15.2)
[2019-10-11 05:07] LABS: CALCIUM 9.2 mg/dL (8.5-10.1); CHLORIDE 101 mmol/L (98-107)
[2019-10-11 05:14] LABS: ANION GAP 4 mmol/L (5-15); CREATININE 0.57 mg/dL (0.55-1.02)
[2019-10-11 05:35] LABS: MD YES
[2019-10-11 05:37] LABS: BASOS#(MANUAL) 0.05 x10^3/uL (0-0.1); BASOS% (MANUAL) 1 % (0-1); LYMPHS% (MANUAL) 53 % (22-44); MONOS#(MANUAL) 0.49 x10^3/uL (0.3-2.7); MONOS% (MANUAL) 10 % (2-9); SEG#(MANUAL) 1.76 x10^3/uL (1.8-6.8); SEGS% (MANUAL) 36 % (42-75)
[2019-10-11 05:38] LABS: <PLATELET ESTIMATE> ADEQUATE; <PLT MORPHOLOGY> NORMAL PLT MORPH; ANISOCYTOSIS 1+
[2019-10-11 07:39] VITALS: BP 112/73
[2019-10-11] MEDS: DILTIAZEM 60 MG TABLET PO SCH (08:49)
[2019-10-11] MEDS: OMEPRAZOLE 20 MG CAPSULE.DR PO SCH (08:50)
[2019-10-11] MEDS: NYSTATIN TOPICAL POWDER 15GM TP SCH (08:50)
[2019-10-11] MEDS: CHOLECALCIFEROL 1,000 UNIT TABLET PO SCH (08:50)
[2019-10-11] MEDS: ZINC SULFATE 220 MG CAPSULE PO SCH (08:50)
[2019-10-11] MEDS: DIVALPROEX 500 MG TABLET.DR PO SCH (08:50)
[2019-10-11] MEDS: SENNA/DOCUSATE TABLET PO SCH (08:50)
[2019-10-11] MEDS: MULTIVITAMINS/MINERALS TABLET PO SCH (08:50)
[2019-10-11] MEDS: ASCORBIC ACID 500 MG TABLET PO SCH (08:51)
[2019-10-11] MEDS: ASPIRIN 81 MG TABLET EC PO SCH (08:51)
[2019-10-11 08:55] VITALS: BP 118/70
[2019-10-11] MEDS: FLUTICASONE NASAL SPRAY 16GM NAS SCH (10:01)
== END 2019-10-11 13:53 | DRG 177 ==
LOC: ED 20:21 → EDIP 21:10 → 4NE 21:11 → 4NW 09-16 20:25 → 3N 10-04 15:21
PROVIDERS: ADMIT Hospitalist; ATTEND Hospitalist
PROC: 0T9B70Z Drainage of Bladder with Drainage Device, Via Natural or Artificial Opening (ICD-10-PCS; principal; 2019-09-12)
DX: U07.1 COVID-19 (principal); E43 Unspecified severe protein-calorie malnutrition; J12.89 Other viral pneumonia; J96.20 Acute and chronic respiratory failure, unspecified whether with hypoxia or hypercapnia; F11.20 Opioid dependence, uncomplicated; D69.6 Thrombocytopenia, unspecified; E78.5 Hyperlipidemia, unspecified; E83.42 Hypomagnesemia; E86.0 Dehydration; Z87.891 Personal history of nicotine dependence; F31.9 Bipolar disorder, unspecified; G25.0 Essential tremor; G89.29 Other chronic pain; H35.30 Unspecified macular degeneration; I10 Essential (primary) hypertension; I73.9 Peripheral vascular disease, unspecified; I89.0 Lymphedema, not elsewhere classified; J43.9 Emphysema, unspecified; R62.7 Adult failure to thrive; M54.9 Dorsalgia, unspecified; R91.1 Solitary pulmonary nodule; R01.1 Cardiac murmur, unspecified; Z74.01 Bed confinement status; Z80.49 Family history of malignant neoplasm of other genital organs; Z82.49 Family history of ischemic heart disease and other diseases of the circulatory system; Z82.5 Family history of asthma and other chronic lower respiratory diseases; Z86.19 Personal history of other infectious and parasitic diseases; Z90.710 Acquired absence of both cervix and uterus; Z99.81 Dependence on supplemental oxygen; Z88.1 Allergy status to other antibiotic agents; Z88.5 Allergy status to narcotic agent; Z88.0 Allergy status to penicillin; Z88.2 Allergy status to sulfonamides; Z88.8 Allergy status to other drugs, medicaments and biological substances; Z90.49 Acquired absence of other specified parts of digestive tract; Z79.82 Long term (current) use of aspirin
CPT/HCPCS: 36415; 71045; 71275; 76700; 80048; 80053; 81001; 82728; 83605; 83615; 83735; 84100; 84145; 85025; 85049; 85379; 85384; 85610; 85730; 86140; 87040; 87635; 93005; 99284; G0378; J0696; J1644; Q0162; Q9967; J3475; J7030; J7120; U0001-CS

== ENCOUNTER 2020-06-28 18:38 | Observation (INO) | payer MEDICARE, MEDICAID ==
[~2020-06-28] VITALS: Ht 162.6 cm; Wt 84.5 kg
[~2020-06-28 18:38] MED LIST changes: +BACL20TA PO; -DOXY100C2 PO; +DOXY100C5 PO; +HEPA50002 SQ; +MIRT-38 PO; -MIRT30TA PO; +NYST15PO2 TP; -OXYC-306 PO; +OXYC1TAB16 PO; -SALM50DI IH; +SALM50DI2 IH
--- NOTE | 2020-06-28 19:00 | NUR ---
PT TRIAGED AND REPORT TO [facility] RN
--- NOTE | 2020-06-28 19:16 | NUR ---
pt awake and alert and complaining of being hot and doesn't want clothes on. pt on cr monitor, and med student to bedside to see pt.
[2020-06-28] MEDS ORDERED: ASPIRIN 81 MG TABLET CHEW ONE (19:24)
[2020-06-28] MEDS ORDERED: LORazepam 2 MG/ML, 1ML ONE (19:24)
[2020-06-28] MEDS ORDERED: LORazepam 2 MG/ML, 1ML IVPush ONE (19:30)
[2020-06-28] MEDS ORDERED: ASPIRIN 81 MG TABLET CHEW PO ONE (19:30)
[2020-06-28] MEDS ORDERED: MAALOX/HYOSCYAMINE/LIDOCAINE 45 ML BTL ONE (19:41)
[2020-06-28] MEDS ORDERED: OXYcodone/APAP 7.5/325MG TABLET ONE (19:41)
[2020-06-28] MEDS ORDERED: FAMOTIDINE 20 MG/2 ML ONE (19:41)
[2020-06-28 19:46] LABS: BASOPHILS % (AUTO) 0 % (0-1); EOSINOPHILS % (AUTO) 1 % (1-7); LYMPHOCYTES % (AUTO) 44 % (22-44); MEAN CORPUSCULAR HEMOGLOBIN 28.7 pg (27.0-34.8); MEAN CORPUSCULAR HGB CONC 32.2 g/dL (32.4-35.8); MEAN PLATELET VOLUME 7.8 fL (7.4-10.4); MONOCYTES % (AUTO) 9 % (2-9); NEUTROPHILS % (AUTO) 46 % (42-75); PLATELET COUNT 192 x10^3/uL (130-400); RED BLOOD COUNT 4.14 x10^6/uL (3.82-5.3)
[2020-06-28 19:51] LABS: ALANINE AMINOTRANSFERASE 13 U/L (12-78); ALBUMIN 3.2 g/dL (3.4-5.0); CALCIUM 9.1 mg/dL (8.5-10.1); CHLORIDE 102 mmol/L (98-107); CREATININE 0.52 mg/dL (0.55-1.02)
--- NOTE | 2020-06-28 19:54 | NUR ---
PT AWAKE AND ALERT, AND CONTINUES TO COMPLAIN OF CHEST PAIN/BURNING. PT MEDICATED PER MD ORDERS AND TOLERATED WELL. PTS PIV TO LEFT FOREARM IS INTACT, FLUSHES EASILY, NO REDNESS OR SWELLING.
[2020-06-28 19:56] LABS: ALKALINE PHOSPHATASE 60 U/L (45-117); BILIRUBIN,TOTAL 0.2 mg/dL (0.2-1.0); TOTAL PROTEIN 7.6 g/dL (6.4-8.2); TROPONIN I < 0.015 ng/mL (0.000-0.045)
[2020-06-28 20:00] LABS: ANION GAP 5 mmol/L (5-15)
[2020-06-28] MEDS ORDERED: OXYcodone/APAP 7.5/325MG TABLET PO ONE (20:00)
[2020-06-28] MEDS ORDERED: MAALOX/HYOSCYAMINE/LIDOCAINE 45 ML BTL PO ONE (20:00)
[2020-06-28] MEDS ORDERED: FAMOTIDINE 20 MG/2 ML IVPush ONE (20:00)
--- NOTE | 2020-06-28 20:22 | NUR ---
PT HAS WET HERSELF AND ASKED FOR ASSISTANCE IN CHANGING, AND IS CHANGED AND NEW LINEN PROVIDED FOR COMFORT, PT HAS REDNESS TO GENITAL REGIONS, APPEARS TO LOOK LIKE A DIAPER RASH. PT CLEANSED WITH SOAP AND WATER AND DRIED APPROPRIATELY, AND ASSITED BY FEMALE STAFF FOR THE PTS COMFORT.
--- NOTE | 2020-06-28 21:16 | NUR ---
PT STATES THAT HER CHEST PAIN/BURNING IS NO LONGER THERE AFTER THE MEDICATION. MD TO BEDSIDE TO RECHECK PT. PT HAS A ROOM AND WILL BE ADMITTED.
[2020-06-28] MEDS ORDERED: PROMETHAZINE 25 MG/ML, 1ML IM PRN (21:30)
[2020-06-28] MEDS ORDERED: ONDANSETRON 2MG/ML, 2ML IVPush PRN (21:30)
[2020-06-28] MEDS ORDERED: hydrALAzine 20 MG/ML, 1ML IVPush PRN (21:30)
[2020-06-28] MEDS: PANTOPRAZOLE 40 MG IV IVPush SCH (21:30)
[2020-06-28] MEDS ORDERED: BISACODYL 10 MG SUPP PR PRN (21:30)
[2020-06-28] MEDS ORDERED: SODIUM CHLORIDE 0.9% 1,000 ML IV SCH (21:30)
[2020-06-28] MEDS ORDERED: ONDANSETRON ODT 4 MG PO PRN (21:30)
[2020-06-28] MEDS ORDERED: ENOXAPARIN 40 MG/0.4 ML SQ SCH (21:30)
[2020-06-28] MEDS ORDERED: POLYETHYLENE GLYCOL 17 GM PACKET PO PRN (21:30)
[2020-06-28] MEDS ORDERED: DOCUSATE 100 MG CAPSULE PO PRN (21:30)
[2020-06-28] MEDS ORDERED: NITROGLYCERIN 0.4 MG BOTTLE (25 TABS) SL PRN (21:30)
[2020-06-28] MEDS ORDERED: ENOXAPARIN 40 MG/0.4 ML ONE (21:47)
[2020-06-28] MEDS ORDERED: PANTOPRAZOLE 40 MG IV ONE (21:47)
[2020-06-28 22:03] VITALS: BP 167/75
[2020-06-28] MEDS ORDERED: PROP10TA51 PO (23:18)
[2020-06-28] MEDS ORDERED: SIMV10TA18 PO (23:19)
[2020-06-28] MEDS ORDERED: LORA10TA41 PO (23:19)
[2020-06-29] MEDS ORDERED: ALBUTEROL HFA 90 MCG/SPRAY INH PRN
[2020-06-29] MEDS: DIVALPROEX 500 MG TABLET.DR PO SCH ×2 (00:12→08:13)
[2020-06-29] MEDS: ACETAMINOPHEN 325 MG TABLET PO PRN ×2 (00:12→06:57)
[2020-06-29] MEDS: DILTIAZEM 60 MG TABLET PO SCH ×2 (00:13→08:13)
[2020-06-29] MEDS: PROPRANOLOL 10 MG TABLET PO SCH ×2 (00:13→08:13)
[2020-06-29] MEDS: OXYcodone IR 5MG TABLET PO PRN ×3 (00:13→11:54)
[2020-06-29 02:15] LABS: TROPONIN I < 0.015 ng/mL (0.000-0.045)
[2020-06-29 04:25] VITALS: BP 120/61
[2020-06-29 04:52] LABS: ALBUMIN 2.8 g/dL (3.4-5.0); CALCIUM 8.8 mg/dL (8.5-10.1); CHLORIDE 104 mmol/L (98-107)
[2020-06-29 04:55] LABS: BASOPHILS % (AUTO) 0 % (0-1); EOSINOPHILS % (AUTO) 2 % (1-7); LYMPHOCYTES % (AUTO) 60 % (22-44); MEAN CORPUSCULAR HEMOGLOBIN 28.6 pg (27.0-34.8); MEAN CORPUSCULAR HGB CONC 32.1 g/dL (32.4-35.8); MEAN PLATELET VOLUME 8.3 fL (7.4-10.4); MONOCYTES % (AUTO) 8 % (2-9); NEUTROPHILS % (AUTO) 29 % (42-75); PLATELET COUNT 160 x10^3/uL (130-400); RED BLOOD COUNT 3.83 x10^6/uL (3.82-5.3); RED CELL DISTRIBUTION WIDTH 15.1 % (9.6-15.2)
[2020-06-29 05:03] LABS: ALANINE AMINOTRANSFERASE 12 U/L (12-78); ALKALINE PHOSPHATASE 49 U/L (45-117); BILIRUBIN,TOTAL 0.1 mg/dL (0.2-1.0); CHOLESTEROL, TOTAL 143 mg/dL (140-239); CREATININE 0.56 mg/dL (0.55-1.02); HDL CHOL % 49 % (28-40); HDL CHOLESTEROL (DIRECT) 70 mg/dL (40-60); LDL CHOLESTEROL,CALCULATED 52 mg/dL (54-169); LDL/HDL RATIO 0.7 (0.5-3.0); TOTAL PROTEIN 6.7 g/dL (6.4-8.2); TRIGLYCERIDES 107 mg/dL (50-200); TROPONIN I < 0.015 ng/mL (0.000-0.045); VLDL CHOLESTEROL 21 mg/dL (0-25)
[2020-06-29 05:18] LABS: ANION GAP 2 mmol/L (5-15)
[2020-06-29] MEDS ORDERED: PROPRANOLOL 10 MG TABLET PO SCH (06:00)
[2020-06-29] MEDS ORDERED: ASPIRIN 325 MG TABLET EC PO SCH (06:00)
[2020-06-29] MEDS: PANTOPRAZOLE 40 MG IV IVPush SCH (08:12)
[2020-06-29] MEDS ORDERED: MULTIVITAMIN 1 TABLET PO SCH (09:00)
[2020-06-29] MEDS ORDERED: ASPIRIN 81 MG TABLET EC PO SCH (09:00)
[2020-06-29] MEDS ORDERED: ASCORBIC ACID 500 MG TABLET PO SCH (09:00)
[2020-06-29] MEDS ORDERED: FLUTICASONE NASAL SPRAY 16GM NAS SCH (09:00)
[2020-06-29] MEDS ORDERED: LORATADINE 10 MG TABLET PO SCH ×2 (09:00)
[2020-06-29] MEDS ORDERED: OMEPRAZOLE 20 MG CAPSULE.DR PO SCH (09:00)
[2020-06-29 09:11] VITALS: BP 154/73
[2020-06-29] MEDS ORDERED: LISINOPRIL 10 MG TABLET PO SCH (10:30)
[2020-06-29 11:50] VITALS: BP 167/71
[2020-06-29] MEDS ORDERED: OMEP20TA62 PO (13:15)
[2020-06-29] MEDS ORDERED: ALBU18HF INH (13:15)
[2020-06-29] MEDS ORDERED: LISI-167 PO (13:15)
[2020-06-29] MEDS ORDERED: PROP10TA16 PO (13:15)
[2020-06-29 13:44] VITALS: BP 143/71
[2020-06-29] MEDS ORDERED: SIMVASTATIN 10 MG TABLET PO SCH ×2 (21:00)
[2020-06-29] MEDS ORDERED: BACLOFEN 10 MG TABLET PO SCH (21:00)
== END 2020-06-29 16:38 | disposition home or self-care (01) ==
LOC: ED 20:55 → INTOOBSV 21:02 → EDIP 21:02 → 5SO 21:49
PROVIDERS: ADMIT Internal Medicine; ATTEND Hospitalist
DX: R07.89 Other chest pain (principal); J96.10 Chronic respiratory failure, unspecified whether with hypoxia or hypercapnia; J44.9 Chronic obstructive pulmonary disease, unspecified; G25.0 Essential tremor; G47.33 Obstructive sleep apnea (adult) (pediatric); I11.0 Hypertensive heart disease with heart failure; I50.30 Unspecified diastolic (congestive) heart failure; E78.5 Hyperlipidemia, unspecified; G89.29 Other chronic pain; M54.9 Dorsalgia, unspecified; I73.9 Peripheral vascular disease, unspecified; I89.0 Lymphedema, not elsewhere classified; I48.91 Unspecified atrial fibrillation; F31.9 Bipolar disorder, unspecified; E87.3 Alkalosis; R91.1 Solitary pulmonary nodule; Z90.710 Acquired absence of both cervix and uterus; Z86.16 Personal history of COVID-19; Z88.0 Allergy status to penicillin; Z87.891 Personal history of nicotine dependence; Z79.899 Other long term (current) drug therapy
CPT/HCPCS: 36415; 36600; 71045; 80053; 80061; 82803; 83036; 83735; 83880; 84100; 84443; 84484; 85025; 93005; 93306; 96361; 96372; 96374; 96375; 97161; 97165; 99285; C9113; G0378; J1650; J2060; J7030

== ENCOUNTER 2020-11-13 19:00 | Inpatient (IN) | payer MEDICARE, MEDICAID ==
[~2020-11-13] VITALS: Ht 160 cm; Wt 79.0 kg
[~2020-11-13 19:00] MED LIST changes: +LISI-167 PO; +LORA10TA41 PO; +PROP10TA16 PO
[2020-11-13 19:54] LABS: BASOPHILS % (AUTO) 0 % (0-1); EOSINOPHILS % (AUTO) 1 % (1-7); LYMPHOCYTES % (AUTO) 24 % (22-44); MEAN CORPUSCULAR HEMOGLOBIN 29.2 pg (27.0-34.8); MEAN CORPUSCULAR HGB CONC 32.1 g/dL (32.4-35.8); MEAN PLATELET VOLUME 8.6 fL (7.4-10.4); MONOCYTES % (AUTO) 6 % (2-9); NEUTROPHILS % (AUTO) 69 % (42-75); PLATELET COUNT 167 x10^3/uL (130-400); RED BLOOD COUNT 4.01 x10^6/uL (3.82-5.3); RED CELL DISTRIBUTION WIDTH 15.3 % (9.6-15.2)
[2020-11-13 19:59] LABS: ALBUMIN 2.4 g/dL (3.4-5.0); ANION GAP 3 mmol/L (5-15); CALCIUM 8.4 mg/dL (8.5-10.1); CHLORIDE 105 mmol/L (98-107)
--- NOTE | 2020-11-13 20:21 | NUR ---
BIB EMS for generalized weakness that started this AM. Family unaware of when it started but called EMS. PT is A&O x4 but slow to respond. Family also reports that pt has had tremors but they have increased today. Noticable tremors noted. On 4L NC continiously at home for COPD. Sats are 98-99% on 4L. Connected to all monitors, VSS, WCTM
--- NOTE | 2020-11-13 20:24 | NUR ---
Pt tolerated straight cath well, walked sample to lab
[2020-11-13 20:44] LABS: MICROSCOPIC NOT IND
[2020-11-13] MEDS ORDERED: SODIUM CHLORIDE FLUSH 10ML SYR IVF ONE (21:30)
[2020-11-13] MEDS ORDERED: SODIUM CHLORIDE 0.9% 1,000ML IVBOLUS ONE (21:30)
[2020-11-13] MEDS ORDERED: ACETAMINOPHEN 325 MG TABLET PO PRN (22:00)
[2020-11-13] MEDS ORDERED: ONDANSETRON 2MG/ML, 2ML IVPush PRN (22:00)
[2020-11-13] MEDS ORDERED: LORazepam 2 MG/ML, 1ML IVPush PRN (22:00)
[2020-11-13] MEDS ORDERED: LACTATED RINGERS 1,000 ML IV SCH (22:00)
[2020-11-13] MEDS ORDERED: SODIUM CHLORIDE FLUSH 10ML SYR IVF PRN (22:00)
[2020-11-13] MEDS ORDERED: POLYETHYLENE GLYCOL 17 GM PACKET PO PRN (22:00)
[2020-11-13] MEDS ORDERED: LABETALOL 5MG/ML, 20ML IVPush PRN (22:00)
--- NOTE | 2020-11-13 23:01 | NUR ---
Pure wick placed for comfort. MRI screen completed. Pt gave this RN verbal consent to sign for them.
--- NOTE | 2020-11-13 23:05 | NUR ---
MRI screen faxed
[2020-11-13] MEDS ORDERED: PROP20TA PO (23:13)
[2020-11-13] MEDS ORDERED: VIT1CAPS11 PO (23:21)
[2020-11-13] MEDS ORDERED: CHOL10003 PO (23:21)
[2020-11-13] MEDS ORDERED: ZINC220T2 PO (23:21)
[2020-11-13] MEDS ORDERED: OMEP20CA20 PO (23:21)
[2020-11-13] MEDS ORDERED: ONDA4TAB7 PO (23:21)
[2020-11-13 23:35] VITALS: BP 116/66
[2020-11-14] MEDS ORDERED: ALBUTEROL SULFATE 2.5 MG/3 ML NPPB PRN
[2020-11-14] MEDS: ENOXAPARIN 30 MG/0.3 ML SQ SCH ×2 (00:02→20:55)
[2020-11-14 00:05] VITALS: BP 118/70
[2020-11-14] MEDS: ERYTHROMYCIN OPHTH 0.5%, 1GM RIGHTEYE SCH ×5 (00:26→20:55)
[2020-11-14 00:43] LABS: MICROSCOPIC AUTO
[2020-11-14 06:13] LABS: BASOPHILS % (AUTO) 0 % (0-1); EOSINOPHILS % (AUTO) 3 % (1-7); LYMPHOCYTES % (AUTO) 32 % (22-44); MEAN CORPUSCULAR HEMOGLOBIN 29.4 pg (27.0-34.8); MEAN CORPUSCULAR HGB CONC 32.6 g/dL (32.4-35.8); MEAN PLATELET VOLUME 8.4 fL (7.4-10.4); MONOCYTES % (AUTO) 7 % (2-9); NEUTROPHILS % (AUTO) 58 % (42-75); PLATELET COUNT 134 x10^3/uL (130-400)
[2020-11-14 06:21] LABS: ANION GAP 3 mmol/L (5-15); CHLORIDE 109 mmol/L (98-107)
[2020-11-14 06:22] LABS: CREATININE 0.52 mg/dL (0.55-1.02)
[2020-11-14 07:16] VITALS: BP 110/61
[2020-11-14 13:42] VITALS: BP 96/59
[2020-11-14 20:32] VITALS: BP 123/74
[2020-11-14 20:53] VITALS: BP 129/75
[2020-11-14] MEDS: LISINOPRIL 10 MG TABLET PO SCH (20:55)
[2020-11-14] MEDS: DILTIAZEM 60 MG TABLET PO SCH (20:56)
[2020-11-14] MEDS: PROPRANOLOL 20 MG TABLET PO SCH (20:56)
[2020-11-14] MEDS ORDERED: DIVALPROEX 500 MG TABLET.DR PO SCH (21:00)
[2020-11-14] MEDS: DIVALPROEX 125 MG CAP.SPRINK PO SCH (22:53)
[2020-11-15 00:11] VITALS: BP 94/62
[2020-11-15] MEDS: ERYTHROMYCIN OPHTH 0.5%, 1GM RIGHTEYE SCH ×4 (05:45→21:38)
[2020-11-15 08:47] LABS: BASOPHILS % (AUTO) 0 % (0-1); EOSINOPHILS % (AUTO) 2 % (1-7); LYMPHOCYTES % (AUTO) 48 % (22-44); MEAN CORPUSCULAR HEMOGLOBIN 29.2 pg (27.0-34.8); MEAN CORPUSCULAR HGB CONC 32.2 g/dL (32.4-35.8); MEAN PLATELET VOLUME 8.8 fL (7.4-10.4); MONOCYTES % (AUTO) 8 % (2-9); NEUTROPHILS % (AUTO) 42 % (42-75); PLATELET COUNT 128 x10^3/uL (130-400); RED BLOOD COUNT 3.64 x10^6/uL (3.82-5.3); RED CELL DISTRIBUTION WIDTH 14.5 % (9.6-15.2)
[2020-11-15 08:49] VITALS: BP 130/76
[2020-11-15 08:58] LABS: ALANINE AMINOTRANSFERASE 13 U/L (12-78); ALBUMIN 2.1 g/dL (3.4-5.0); ANION GAP 5 mmol/L (5-15); CHLORIDE 107 mmol/L (98-107)
[2020-11-15] MEDS ORDERED: ASPIRIN 81 MG TABLET EC PO SCH (09:00)
[2020-11-15 09:01] LABS: ALKALINE PHOSPHATASE 56 U/L (45-117); BILIRUBIN,TOTAL 0.3 mg/dL (0.2-1.0); CREATININE 0.36 mg/dL (0.55-1.02); TOTAL PROTEIN 6.1 g/dL (6.4-8.2)
[2020-11-15] MEDS ORDERED: ASPIRIN 81 MG TABLET CHEW ONE (10:47)
[2020-11-15] MEDS: LISINOPRIL 10 MG TABLET PO SCH ×2 (10:54→21:38)
[2020-11-15] MEDS: DILTIAZEM 60 MG TABLET PO SCH ×2 (10:56→21:38)
[2020-11-15] MEDS: PROPRANOLOL 20 MG TABLET PO SCH ×3 (10:56→21:38)
[2020-11-15] MEDS: DIVALPROEX 125 MG CAP.SPRINK PO SCH ×2 (10:57→21:37)
[2020-11-15] MEDS: ASPIRIN 81 MG TABLET CHEW PO SCH (11:13)
[2020-11-15 17:16] VITALS: BP 129/79
[2020-11-15 18:41] VITALS: BP 142/78
[2020-11-15 21:23] VITALS: BP 151/90
[2020-11-15] MEDS: CEFTRIAXONE 2 GM in DEXTROSE 5% 50 ML IVPB SCH (21:36)
[2020-11-15] MEDS: ENOXAPARIN 40 MG/0.4 ML SQ SCH (21:38)
[2020-11-16 00:14] VITALS: BP 112/74
[2020-11-16] MEDS: ERYTHROMYCIN OPHTH 0.5%, 1GM RIGHTEYE SCH ×4 (05:26→20:52)
[2020-11-16 07:24] VITALS: BP 148/80
[2020-11-16] MEDS: ASPIRIN 81 MG TABLET CHEW PO SCH (10:16)
[2020-11-16] MEDS: LISINOPRIL 10 MG TABLET PO SCH ×2 (10:17→20:50)
[2020-11-16] MEDS: PROPRANOLOL 20 MG TABLET PO SCH ×3 (10:19→20:51)
[2020-11-16] MEDS: DILTIAZEM 60 MG TABLET PO SCH ×2 (10:20→20:50)
[2020-11-16] MEDS: DIVALPROEX 125 MG CAP.SPRINK PO SCH ×2 (10:20→20:50)
[2020-11-16] MEDS: FLUTICASONE NASAL SPRAY 16GM NAS SCH ×3 (10:51→21:08)
[2020-11-16] MEDS ORDERED: FUROSEMIDE 20 MG/2 ML IV ONE (12:30)
[2020-11-16] MEDS: OXYcodone/APAP 7.5/325MG TABLET PO SCH ×2 (12:50→18:48)
[2020-11-16 13:29] VITALS: BP 144/76
[2020-11-16 19:13] VITALS: BP 144/71
[2020-11-16] MEDS: ENOXAPARIN 40 MG/0.4 ML SQ SCH (20:50)
[2020-11-16] MEDS: CEFTRIAXONE 2 GM in DEXTROSE 5% 50 ML IVPB SCH (20:51)
[2020-11-17] MEDS: OXYcodone/APAP 7.5/325MG TABLET PO SCH ×4 (00:05→17:58)
[2020-11-17 00:30] VITALS: BP 134/74
[2020-11-17] MEDS: ERYTHROMYCIN OPHTH 0.5%, 1GM RIGHTEYE SCH ×4 (06:05→21:34)
[2020-11-17 08:57] VITALS: BP 151/81
[2020-11-17] MEDS: FLUTICASONE NASAL SPRAY 16GM NAS SCH ×2 (09:27→21:33)
[2020-11-17] MEDS: DILTIAZEM 60 MG TABLET PO SCH ×2 (09:27→21:33)
[2020-11-17] MEDS: ASPIRIN 81 MG TABLET CHEW PO SCH (09:27)
[2020-11-17] MEDS: LISINOPRIL 10 MG TABLET PO SCH ×2 (09:28→21:33)
[2020-11-17] MEDS: DIVALPROEX 125 MG CAP.SPRINK PO SCH ×2 (09:28→21:34)
[2020-11-17] MEDS: PROPRANOLOL 20 MG TABLET PO SCH ×3 (09:28→21:00)
[2020-11-17] MEDS: PRAMIPEXOLE 0.25MG TABLET PO SCH (12:00)
[2020-11-17 12:48] VITALS: BP 129/73
[2020-11-17 19:08] VITALS: BP 168/75
[2020-11-17 21:27] VITALS: BP 164/77
[2020-11-17] MEDS: ENOXAPARIN 40 MG/0.4 ML SQ SCH (21:33)
[2020-11-17] MEDS: CEFTRIAXONE 2 GM in DEXTROSE 5% 50 ML IVPB SCH (21:33)
[2020-11-18 00:05] VITALS: BP 151/83
[2020-11-18] MEDS: OXYcodone/APAP 7.5/325MG TABLET PO SCH ×4 (00:10→18:00)
[2020-11-18 05:54] LABS: MEAN CORPUSCULAR HEMOGLOBIN 28.9 pg (27.0-34.8); MEAN CORPUSCULAR HGB CONC 32.3 g/dL (32.4-35.8); MEAN PLATELET VOLUME 8.3 fL (7.4-10.4); PLATELET COUNT 170 x10^3/uL (130-400); RED BLOOD COUNT 3.75 x10^6/uL (3.82-5.3); RED CELL DISTRIBUTION WIDTH 14.6 % (9.6-15.2)
[2020-11-18] MEDS: ERYTHROMYCIN OPHTH 0.5%, 1GM RIGHTEYE SCH ×4 (06:02→20:32)
[2020-11-18 06:03] LABS: ALANINE AMINOTRANSFERASE 9 U/L (12-78); ALBUMIN 2.1 g/dL (3.4-5.0); CALCIUM 8.7 mg/dL (8.5-10.1); CHLORIDE 100 mmol/L (98-107); CREATININE 0.46 mg/dL (0.55-1.02)
[2020-11-18 06:06] LABS: ALKALINE PHOSPHATASE 53 U/L (45-117); BILIRUBIN,TOTAL 0.2 mg/dL (0.2-1.0); TOTAL PROTEIN 6.1 g/dL (6.4-8.2)
[2020-11-18 06:16] LABS: ANION GAP 3 mmol/L (5-15)
[2020-11-18 06:26] LABS: BAND#(MANUAL) 0.05 x10^3/uL; BANDS%(MANUAL) 1 % (0-7); EOS#(MANUAL) 0.26 x10^3/uL (0.0-0.4); EOS% (MANUAL) 5 % (1-7); LYMPH#(MANUAL) 2.91 x10^3/uL (1-3.4); LYMPHS% (MANUAL) 56 % (22-44); METAMYELOCYTES# (MANUAL) 0.05 x10^3/uL (0-0); METAMYELOCYTES% (MANUAL) 1 % (0-1); MONOS#(MANUAL) 0.26 x10^3/uL (0.3-2.7); MONOS% (MANUAL) 5 % (2-9); SEG#(MANUAL) 1.66 x10^3/uL (1.8-6.8); SEGS% (MANUAL) 32 % (42-75); SMUDGE CELLS 1+
[2020-11-18 06:27] VITALS: BP 129/81
[2020-11-18 06:27] LABS: <PLATELET ESTIMATE> ADEQUATE; <PLT MORPHOLOGY> NORMAL PLT MORPH; HYPOCHROMIA 1+
[2020-11-18] MEDS ORDERED: POTASSIUM CHLORIDE 20 MEQ PACKET PO ONE (08:30)
[2020-11-18] MEDS: FLUTICASONE NASAL SPRAY 16GM NAS SCH ×2 (08:52→20:32)
[2020-11-18] MEDS: PRAMIPEXOLE 0.25MG TABLET PO SCH (08:52)
[2020-11-18] MEDS: LISINOPRIL 10 MG TABLET PO SCH ×2 (08:53→20:32)
[2020-11-18] MEDS: ASPIRIN 81 MG TABLET CHEW PO SCH (08:53)
[2020-11-18] MEDS: DILTIAZEM 60 MG TABLET PO SCH ×2 (08:53→20:32)
[2020-11-18] MEDS: DIVALPROEX 125 MG CAP.SPRINK PO SCH ×2 (08:53→20:31)
[2020-11-18] MEDS: PROPRANOLOL 20 MG TABLET PO SCH ×3 (08:53→20:32)
[2020-11-18 12:13] VITALS: BP 135/76
[2020-11-18 19:30] VITALS: BP 137/83
[2020-11-18] MEDS: ENOXAPARIN 40 MG/0.4 ML SQ SCH (20:31)
[2020-11-19 01:10] VITALS: BP 109/70
[2020-11-19] MEDS: OXYcodone/APAP 7.5/325MG TABLET PO SCH ×4 (03:02→15:45)
[2020-11-19] MEDS: ERYTHROMYCIN OPHTH 0.5%, 1GM RIGHTEYE SCH ×2 (06:29→11:17)
[2020-11-19 08:03] VITALS: BP 123/74
[2020-11-19] MEDS: DIVALPROEX 125 MG CAP.SPRINK PO SCH (09:25)
[2020-11-19] MEDS: FLUTICASONE NASAL SPRAY 16GM NAS SCH (09:25)
[2020-11-19] MEDS: PROPRANOLOL 20 MG TABLET PO SCH (09:25)
[2020-11-19] MEDS: PRAMIPEXOLE 0.25MG TABLET PO SCH (09:25)
[2020-11-19] MEDS: DILTIAZEM 60 MG TABLET PO SCH (09:26)
[2020-11-19] MEDS: LISINOPRIL 10 MG TABLET PO SCH (09:26)
[2020-11-19] MEDS: ASPIRIN 81 MG TABLET CHEW PO SCH (09:26)
[2020-11-19 12:54] VITALS: BP 110/62
[2020-11-19] MEDS ORDERED: PRAM0.255 PO (15:33)
[2020-11-19] MEDS ORDERED: PROP20TA PO (15:33)
== END 2020-11-19 16:02 | disposition hospice, home (50) | DRG 92 ==
LOC: ED 21:10 → EDIP 21:33 → 3N 23:29
PROVIDERS: ADMIT Internal Medicine; ATTEND Internal Medicine
PROC: 0T9B70Z Drainage of Bladder with Drainage Device, Via Natural or Artificial Opening (ICD-10-PCS; principal; 2020-11-13)
PROC: 4A00X4Z Measurement of Central Nervous Electrical Activity, External Approach (ICD-10-PCS; 2020-11-15)
DX: G25.0 Essential tremor (principal); J96.12 Chronic respiratory failure with hypercapnia; J96.11 Chronic respiratory failure with hypoxia; I50.30 Unspecified diastolic (congestive) heart failure; G25.3 Myoclonus; F31.9 Bipolar disorder, unspecified; R29.810 Facial weakness; E78.5 Hyperlipidemia, unspecified; H10.9 Unspecified conjunctivitis; H35.30 Unspecified macular degeneration; I11.0 Hypertensive heart disease with heart failure; I48.91 Unspecified atrial fibrillation; I73.9 Peripheral vascular disease, unspecified; K21.9 Gastro-esophageal reflux disease without esophagitis; M06.9 Rheumatoid arthritis, unspecified; J44.9 Chronic obstructive pulmonary disease, unspecified; R13.10 Dysphagia, unspecified; E66.01 Morbid (severe) obesity due to excess calories; G89.29 Other chronic pain; I65.29 Occlusion and stenosis of unspecified carotid artery; R91.1 Solitary pulmonary nodule; I95.9 Hypotension, unspecified; I89.0 Lymphedema, not elsewhere classified; M54.9 Dorsalgia, unspecified; M62.50 Muscle wasting and atrophy, not elsewhere classified, unspecified site; R53.81 Other malaise; Z86.16 Personal history of COVID-19; Z90.710 Acquired absence of both cervix and uterus; Z90.49 Acquired absence of other specified parts of digestive tract; Z68.30 Body mass index [BMI] 30.0-30.9, adult
CPT/HCPCS: 36415; 70450; 70551; 71045; 74230; 80048; 80053; 80164; 80299; 81001; 81003; 82040; 83735; 84100; 84443; 85025; 87077; 87086; 93880; 95819; 99285; G0378; J0696; J1650; J1940; J2060; J7030; J7120